=== PATIENT | female | born 1975 | race Hispanic/Latino ===

== ENCOUNTER → 2018-08-20 | Day surgery (SDC) | payer BC, OTHER ==
[~2018-08-20] MED LIST: FENTANYL CITRATE/PF 100MCG/2 ML INJ ONE; LIDOCAINE HCL 2% LOCAL INJ 5 ML SDV VIAL INJ ONE; LISINOPRIL10 MG PO; METHYLDOPA250 MG PO; MIDAZOLAM HCL 2 MG/2 ML VIAL ONE; PRENATAL MULTI1 EACH PO; PROPOFOL IV EMULSION 10 MG/ML 20 ML VIAL ONE; WELLBUTRIN SR150 MG PO
[2018-08-20 13:40] VITALS: BP 132/90
--- NOTE | 2018-08-20 22:17 | Operative Report ---
DATE OF PROCEDURE: SURGEON: Peter Pang MD NAME OF THE PROCEDURE: EGD and colonoscopy. INDICATIONS FOR PROCEDURE: The patient with history of abdominal pain and dyspepsia, left lower quadrant pain, left upper quadrant pain. Rule out peptic ulcer disease, gastritis, esophagitis, upper GI and lower GI neoplasm, inflammatory bowel disease. DESCRIPTION OF PROCEDURE: After informed and written consent, premedications with monitored anesthesia care, standard adult video Olympus gastroscope was introduced into the mouth, esophagus, stomach, into the second portion of the duodenum. The first and second portion of the duodenum did not show any ulceration, but the duodenal bulb showed evidence of duodenitis. Antrum and body showed erosive gastritis with superficial gastric ulcers and biopsies were done. Retroflexion otherwise appeared to be unremarkable. Esophagus was normal. Video colonoscope was introduced into the rectum and all the way into the terminal ileum. The terminal ileum, ileocecal valve, cecum, ascending, transverse, descending colon appeared to be normal. The sigmoid showed occasional diverticulosis. Diminutive polyp was seen in the rectum, removed by cold biopsy forceps. There was a 1-cm polyp seen in the sigmoid colon, removed by hot snare. The retroflexion in the rectum otherwise was normal. The withdrawal time was more than 6 minutes. IMPRESSION: Gastritis, duodenitis, superficial gastric ulcers, diverticulosis, and colon polyp. RECOMMENDATIONS: Avoid aspirin, NSAIDs for 2 weeks, PPI and dicyclomine, and we will see her back in the office in 3 weeks and repeat colonoscopy in 3-5 years depending on the pathology. Further recommendation based on the patient's clinical course. Peter Pang MD SR/MODL /[id number]
--- OUTSIDE RECORDS SUMMARY | 2018-08-21 12:13 | XMS REPORT ---
Author Author Mayra Lei Organization [employer] Address Unknown Phone Unavailable Care Team Providers Care Travel Rn Name Role Phone Mayra Lei CP Unavailable Allergies, Adverse Reactions, Alerts Substance Reaction Event Type N.K.D.A. Info Not Available Non Drug Allergy Problems Problem Type Condition Code Onset Dates Condition Status Assessment Depression F32.9 Active Assessment Dizziness R42 Active Problem Depression F32.9 Active Problem Left knee pain M25.562 Active Problem Hypertension I10 Active Assessment Hypertension I10 Active Assessment Abnormal urinalysis R82.90 Active Problem Rheumatoid arthritis M06.9 Active Medications Medication Code System Code Instructions Start Date End Date Status Dosage Methotrexate [facility] 51586496536 2.5 MG Orally 10 pills a week Jul 03, 2018 Active as directed Folic Acid ND 99954926481 1 MG Orally Once a day Jul 03, 2018 Active 1 tablet Lisinopril ND 82226621189 10 MG Orally Once a day Jul 03, 2018 Active 1 tablet Wellbutrin XL ND 15901510604 150 MG Orally Once a day Jul 03, 2018 Active 1 tablet in the morning Humira ND 84389988133 40 MG/0.8ML Subcutaneous Jul 03, 2018 Active 0.8 ml Vital Signs Date/Time: Aug 03, 2018 BMI 49.01 Index Weight 268 lbs Height 62 in Cardiac Monitoring Heart Rate 74 /min Blood Pressure Diastolic 94 mm Hg Blood Pressure Systolic 146 mm Hg Results No Known Results Summary Purpose [employer] Submission
--- OUTSIDE RECORDS SUMMARY | 2018-08-21 12:13 | XMS REPORT ---
Author Author Kemi Willis Organization [employer] Address Unknown Phone Unavailable Care Team Providers Care Movie Theater Manager Name Role Phone Kemi Willis CP Unavailable Allergies No Known Allergies Problems Problem Type Condition Code Onset Dates Condition Status Problem Depression F32.9 Active Problem Left knee pain M25.562 Active Problem Hypertension I10 Active Problem Rheumatoid arthritis M06.9 Active Medications No Known Medications Vital Signs Date/Time: Jul 10, 2018 Height 62 in Results No Known Results Summary Purpose [employer] Submission
--- OUTSIDE RECORDS SUMMARY | 2018-08-21 12:13 | XMS REPORT | Summary of Care ---
Author Organization Unknown Address Unknown Phone Unavailable Encounter [facility](LIVE) [id number] Date(s): 04/22/14 - 04/22/14 [facility] [address] Discharge Disposition: Home Physician Attending: Vira Martinez MD Physician_Referring: Vira Martinez MD Reason for Visit V23.9 / 009.90 Vital Signs Most recent to 1 oldest [Reference Range]: Height 157.48 cm (04/22/14 1:40 PM) Weight 119.091 kg (04/22/14 1:40 PM) Body Mass Index 48.02 m2 (04/22/14 1:40 PM) Problem List No data available for this section Allergies, Adverse Reactions, Alerts Substance Reaction Severity Status NKDA Active Medications No data available for this section Medications Administered During Your Visit No data available for this section Immunizations No data available for this section
--- OUTSIDE RECORDS SUMMARY | 2018-08-21 12:13 | XMS REPORT | Summary of Care ---
Author Organization Unknown Address Unknown Phone Unavailable Encounter [facility]) [phone] Date(s): 05/26/14 - 05/31/[address] Discharge Disposition: Home Physician Attending: Vira Martinez MD Physician Admitting: Vira Martinez MD Reason for Visit INDUCTION Vital Signs 1 2 3 Most recent to oldest [Reference Range]: 157.48 cm (05/27/14 12:23 AM) Height 97.9 DegF (05/31/14 12:30 AM) 98.2 DegF (05/30/14 4:45 PM) 97.4 DegF (05/30/14 12:24 PM) Temperature Oral [96.4-99.1 DegF] 113 mmHg (05/31/14 12:30 AM) 113 mmHg (05/30/14 4:45 PM) 104 mmHg (05/30/14 12:24 PM) Systolic Blood Pressure [90-140 mmHg] 77 mmHg (05/31/14 12:30 AM) 75 mmHg (05/30/14 4:45 PM) 70 mmHg (05/30/14 12:24 PM) Diastolic Blood Pressure [60-90 mmHg] 18 BRMIN (05/31/14 12:30 AM) 18 BRMIN (05/30/14 4:45 PM) 18 BRMIN (05/30/14 12:24 PM) Respiratory Rate [14-20 BRMIN] 90 bpm (05/31/14 12:30 AM) 83 bpm (05/30/14 4:45 PM) 79 bpm (05/30/14 12:24 PM) Peripheral Pulse Rate [60-100 bpm] 120.909 kg (05/27/14 12:23 AM) Weight 48.75 m2 (05/27/14 12:23 AM) Body Mass Index Problem List Condition Effective Dates Status Health Status Informant Carpal 06/16/01 Resolved tunnel(Confirmed) Hypertension(Confirm 12/14/13 Resolved ed) (Confirmed) 05/26/14 - 05/29/14 Resolved (Confirmed) 09/09/97 - 1998 Resolved (Confirmed) 09/09/93 - 1994 Resolved (Confirmed) 09/09/00 - 2001 Resolved Allergies, Adverse Reactions, Alerts Substance Reaction Severity Status NKDA Active Medications acetaminophen 650 mg, 2 tab, Route: PO, Drug form: TAB, Q4H, Dosing Weight 120.909, kg, PRN He adache 1-3, Start date: 05/29/14 16:12:00, Duration: 30 day, Stop date: 06/28/14 16:11:00 Notes: Do not exceed 4 gm/day. (Same as: Tylenol) Start Date: 05/29/14 Stop Date: 05/30/14 Status: Discontinued acetaminophen-hydrocodone 325 mg-10 mg oral tablet 1 tab, Route: PO, Drug Form: TAB, Dosing Weight 120.909, kg, Q4H, PRN Pain Score 7-10, Start date: 05/29/14 16:12:00, Duration: 30 day, Stop date: 06/28/14 16:1 1:00 Notes: Do not exceed 4gm/day of acetaminophen. (Same as: Rhine 325/10) Start Date: 05/29/14 Stop Date: 05/29/14 Status: Discontinued acetaminophen-hydrocodone 325 mg-5 mg oral tablet 1 tab, Route: PO, Drug Form: TAB, Dosing Weight 120.909, kg, Q4H, PRN Pain Score 4-6, Start date: 05/29/14 16:12:00, Duration: 30 day, Stop date: 06/28/14 16:11 :00 Notes: (Same as: Rhine 325/5) Do not exceed 4gm/day of acetaminophen. Start Date: 05/29/14 Stop Date: 05/29/14 Status: Discontinued bisacodyl 15 mg, 3 tab, Route: PO, Drug form: ECTAB, Daily, Dosing Weight 120.909, kg, PRN Other -See Comment, Start date: 05/29/14 16:12:00, Duration: 30 day, Stop date: 06/28/14 16:11:00 Notes: (Same As: Dulcolax, Correctol) (Do Not Crush) "Do Not Crush" Start Date: 05/29/14 Stop Date: 05/31/14 Status: Discontinued bisacodyl 10 mg, 1 supp, Route: NE, Drug form: SUPP, PRN, Dosing Weight 120.909, kg, PRN O ther -See Comment, Start date: 05/29/14 16:12:00, Duration: 30 day, Stop date: 0 06/28/14 16:11:00 Notes: (Same As: Dulcolax, Bisco-Lax) Start Date: 05/29/14 Stop Date: 05/31/14 Status: Discontinued butorphanol 2 mg, 1 mL, Route: IVP, Drug form: INJ, Q2H, Dosing Weight 120.909, kg, PRN Pain Score 6-10, Start date: 05/27/14 3:45:00, Duration: 30 day, Stop date: 06/26/14 3:44:00 Notes: (Same As: Stadol) Start Date: 05/27/14 Stop Date: 05/31/14 Status: Discontinued butorphanol 1 mg, 1 mL, Route: IVP, Drug form: INJ, Q2H, Dosing Weight 120.909, kg, PRN Pain Score 1-5, Start date: 05/27/14 3:45:00, Duration: 30 day, Stop date: 06/26/14 3:44:00 Notes: (Same As: Stadol) Start Date: 05/27/14 Stop Date: 05/31/14 Status: Discontinued carboprost 250 microgram, 1 mL, Route: IM, Drug form: INJ, ONCALL, Dosing Weight 120.909, k g, Start date: 05/27/14 4:00:00, Duration: 30 day, Stop date: 06/26/14 3:59:00 Notes: (Same As: Hemabate) Start Date: 05/27/14 Stop Date: 05/31/14 Status: Discontinued Cervidil 10 mg, 1 supp, Route: VAG, Drug form: INS, ONCE, Dosing Weight 120.909, kg, Star t date: 05/27/14 20:35:00, Duration: 1 doses or times, Stop date: 05/27/14 20:35 :00 Notes: (Same as: Cervidil) Start Date: 05/27/14 Stop Date: 05/27/14 Status: Completed citric acid-sodium citrate 30 mL, Route: PO, Drug Form: SOLN, Dosing Weight 120.909, kg, ONCALL, Start date : 05/27/14 4:00:00, Duration: 30 day, Stop date: 06/26/14 3:59:00 Notes: (Same As: Bicitrjethro, Cytra-2) Sodium citrate-citric acid (500-334 mg/5 mL): 1 mL contains sodium 1 mEq/mL and bicarbonate 1 mEq/mL Start Date: 05/27/14 Stop Date: 05/31/14 Status: Discontinued Colace 100 mg oral capsule 100 mg=1 cap, PO, BID, # 60 cap, 0 Refill(s) Start Date: 05/31/14 Status: Ordered Cytotec 50 microgram, Route: PO, Drug form: TAB, ONCE, Dosing Weight 120.909, kg, Start date: 05/28/14 9:05:00, Stop date: 05/28/14 9:05:00 Start Date: 05/28/14 Stop Date: 05/28/14 Status: Completed D5LR 1,000 mL 1,000 mL, Rate: 125 ml/hr, Infuse over: 8 hr, Route: IV, Dosing Weight 120.909 k g, Total Volume: 1,000, Start date: 05/28/14 18:27:00, Duration: 30 day, Stop da te: 06/27/14 18:26:00 Start Date: 05/28/14 Stop Date: 05/31/14 Status: Discontinued Dermoplast 20% topical spray 1 spray, Route: TOP, PRN, Drug form: SPRY, PRN Irritation, Start date: 05/29/14 16:12:00, Duration: 30 day, Stop date: 06/28/14 16:11:00 Notes: (Same As: Dermoplast) FOR EXTERNAL USE ONLY Start Date: 05/29/14 Stop Date: 05/31/14 Status: Discontinued Dextrose 50% Syringe 12.5 gm, 25 mL, Route: IVP, Drug Form: INJ, Dosing Weight 120.909, kg, PRN, PRN Abnormal Lab Result, Start date: 05/27/14 4:28:00, Duration: 30 day, Stop date: 06/26/14 4:27:00 Start Date: 05/27/14 Stop Date: 05/31/14 Status: Discontinued Dextrose 50% Syringe 6.25 gm, 12.5 mL, Route: IVP, Drug Form: INJ, Dosing Weight 120.909, kg, PRN, NE N Abnormal Lab Result, Start date: 05/27/14 4:28:00, Duration: 30 day, Stop date : 06/26/14 4:27:00 Start Date: 05/27/14 Stop Date: 05/31/14 Status: Discontinued Dextrose 50% Syringe 25 gm, 50 mL, Route: IVP, Drug Form: INJ, Dosing Weight 120.909, kg, PRN, PRN Ab normal Lab Result, Start date: 05/27/14 4:28:00, Duration: 30 day, Stop date: 4:27:00 Start Date: 05/27/14 Stop Date: 05/31/14 Status: Discontinued docusate 100 mg, 1 cap, Route: PO, Drug form: CAP, BID, Dosing Weight 120.909, kg, PRN Co nstipation, Start date: 05/29/14 16:12:00, Duration: 30 day, Stop date: 06/28/14 16:11:00 Notes: (Same as: Colace) (Do Not Crush) Start Date: 05/29/14 Stop Date: 05/31/14 Status: Discontinued famotidine 20 mg, 2 mL, Route: IVP, Drug form: INJ, ONCALL, Dosing Weight 120.909, kg, Star t date: 05/27/14 4:00:00, Duration: 30 day, Stop date: 06/26/14 3:59:00 Notes: (Same as: Pepcid)Can be dilute in 5-10cc NS IVP: Slow IV push over at le ast 2 minutes. Start Date: 05/27/14 Stop Date: 05/31/14 Status: Discontinued ferrous sulfate 325 mg oral enteric coated tablet 325 mg=1 tab, PO, BID, # 60 tab, 0 Refill(s) Start Date: 05/31/14 Status: Ordered glyBURIDE 0 Refill(s) Start Date: 05/28/14 Stop Date: 05/31/14 Status: Discontinued ibuprofen 600 mg, 1 tab, Route: PO, Drug form: TAB, Q6H, Dosing Weight 120.909, kg, PRN Pa in Score 1-5, Start date: 05/29/14 16:12:00, Duration: 30 day, Stop date: 16:11:00 Notes: (Same as: Carol Ann)"Do Not Crush" Take with food. Start Date: 05/29/14 Stop Date: 05/31/14 Status: Discontinued ibuprofen 800 mg, 1 tab, Route: PO, Drug form: TAB, Q8H, Dosing Weight 120.909, kg, PRN Pa in Score 6-10, Start date: 05/29/14 16:12:00, Duration: 30 day, Stop date: 06/28 16:11:00 Notes: (Same as: Carol Ann)"Do Not Crush" Take with food. Start Date: 05/29/14 Stop Date: 05/31/14 Status: Discontinued ibuprofen 600 mg oral tablet 600 mg=1 tab, PO, Q6H, Pain or Fever, Take with food, # 40 tab, 0 Refill(s) Special Instructions: Take with food Start Date: 05/31/14 Stop Date: 06/10/14 Status: Ordered insulin regular 100 units/mL human recombinant 3 unit, 0.03 mL, Route: SUB-Q, Drug form: SOLN, PRN, Dosing Weight 120.909, kg, PRN Abnormal Lab Result, Start date: 05/27/14 4:28:00, Duration: 30 day, Stop da te: 06/26/14 4:27:00 Notes: (Same as: Humulin R) Roll in palms of hands gently; Do not shake vigorou sly. "single patient use only"(Restricted to patients requiring a dose > 60 units) Stable for 28 days at room temperatureExpires in days from _ Date Start Date: 05/27/14 Stop Date: 05/31/14 Status: Discontinued insulin regular 100 units/mL human recombinant 5 unit, 0.05 mL, Route: SUB-Q, Drug form: SOLN, PRN, Dosing Weight 120.909, kg, PRN Abnormal Lab Result, Start date: 05/27/14 4:28:00, Duration: 30 day, Stop da te: 06/26/14 4:27:00 Notes: (Same as: Humulin R) Roll in palms of hands gently; Do not shake vigorou sly. "single patient use only"(Restricted to patients requiring a dose > 60 units) Stable for 28 days at room temperatureExpires in days from _ Date Start Date: 05/27/14 Stop Date: 05/31/14 Status: Discontinued insulin regular 100 units/mL human recombinant 7 unit, 0.07 mL, Route: SUB-Q, Drug form: SOLN, PRN, Dosing Weight 120.909, kg, PRN Abnormal Lab Result, Start date: 05/27/14 4:28:00, Duration: 30 day, Stop da te: 06/26/14 4:27:00 Notes: (Same as: Humulin R) Roll in palms of hands gently; Do not shake vigorou sly. "single patient use only"(Restricted to patients requiring a dose > 60 units) Stable for 28 days at room temperatureExpires in days from _ Date Start Date: 05/27/14 Stop Date: 05/31/14 Status: Discontinued ketorolac 30 mg, 1 mL, Route: IVP, Drug form: INJ, Q6H, Dosing Weight 120.909, kg, PRN Vanessa n Score 4-6, Start date: 05/29/14 21:26:00, Duration: 24 hr, Stop date: 05/30/14 21:25:00 Notes: (Same as:Toradol) IV bolus must be given >15 seconds. Give IM administration slowly and deeply into the muscle. Not for use > 4 days Start Date: 05/29/14 Stop Date: 05/30/14 Status: Completed Lactated Ringers (Bolus) IV 1,000 mL, 1,000 ml/hr, Infuse Over: 1 hr, Route: IV, 1,000, Drug form: INJ, ONCE , Dosing Weight 120.909 kg, Start date: 05/27/14 3:45:00, Stop date: 05/27/14 3: 45:00, Bolus for regional anesthesia per unit protocol Start Date: 05/27/14 Stop Date: 05/31/14 Status: Discontinued Lactated Ringers IV 1,000 mL 1,000 mL, Rate: 100 ml/hr, Infuse over: 10 hr, Route: IV, Dosing Weight 120.909 kg, Total Volume: 1,000, Start date: 05/29/14 16:12:00, Duration: 30 day, Stop d ate: 06/28/14 16:11:00 Start Date: 05/29/14 Stop Date: 05/31/14 Status: Discontinued Lactated Ringers IV 1,000 mL 1,000 mL, Rate: 125 ml/hr, Infuse over: 8 hr, Route: IV, Dosing Weight 120.909 k g, Total Volume: 1,000, Start date: 05/27/14 3:45:00, Duration: 30 day, Stop chelo e: 06/26/14 3:44:00 Start Date: 05/27/14 Stop Date: 05/31/14 Status: Discontinued lanolin topical 1 appl, Route: TOP, PRN, Drug form: OINT, PRN Other -See Comment, Start date: 16:12:00, Duration: 30 day, Stop date: 06/28/14 16:11:00 Notes: (Same as:Lanolin) Start Date: 05/29/14 Stop Date: 05/31/14 Status: Discontinued lidocaine 1% 20 mL, Route: PERCUT, Drug Form: INJ, Dosing Weight 120.909, kg, PRN, PRN Other -See Comment, Start date: 05/27/14 3:45:00, Duration: 1 doses or times, Stop chelo e: Limited # of times Notes: (Same as: Xylocaine) Start Date: 05/27/14 Stop Date: 05/31/14 Status: Discontinued lidocaine 1% injectable solution 0.25 mL, Route: INTRADERM, Drug Form: INJ, Dosing Weight 120.909, kg, PRN, PRN O ther -See Comment, Start date: 05/27/14 3:45:00, Duration: 30 day, Stop date: 3:44:00 Notes: Preservative free. (Same as: Xylocaine MPF) Start Date: 05/27/14 Stop Date: 05/31/14 Status: Discontinued M-M-R II 0.5 mL, Route: SUB-Q, Drug Form: PDR/INJ, Dosing Weight 120.909, kg, ONCALL, Giv e only if patient rubella non-immune, Start date: 05/29/14 17:00:00, Duration: 1 doses or times Notes: (Same as: M-M-R II) (qeanatm-nupvk-enlngml virus vaccine 0.5 ml INJ VL) GIVE PRIOR TO DISCHARGE Start Date: 05/29/14 Stop Date: 05/31/14 Status: Discontinued methyldopa 0 Refill(s) Start Date: 05/28/14 Stop Date: 05/31/14 Status: Discontinued methylergonovine 0.2 mg, 1 mL, Route: IM, Drug form: INJ, PRN, Dosing Weight 120.909, kg, PRN Oth er -See Comment, Start date: 05/29/14 16:12:00, Duration: 30 day, Stop date: 16:11:00 Notes: (Same as:Methergine) Start Date: 05/29/14 Stop Date: 05/31/14 Status: Discontinued methylergonovine 0.2 mg, 1 mL, Route: IM, Drug form: INJ, ONCALL, Dosing Weight 120.909, kg, Star t date: 05/27/14 4:00:00, Duration: 30 day, Stop date: 06/26/14 3:59:00 Notes: (Same as:Methergine) Start Date: 05/27/14 Stop Date: 05/31/14 Status: Discontinued misoprostol 50 microgram, 2 ea, Route: PO, Drug form: TAB, Q4H, Dosing Weight 120.909, kg, S tart date: 05/28/14 16:00:00, Duration: 30 day, Stop date: 06/27/14 12:00:00 Notes: (Same as:Cytotec) Take with food 25 microgram=1/4 tab of 100 microgram. Start Date: 05/28/14 Stop Date: 05/31/14 Status: Discontinued misoprostol 25 microgram, 1 ea, Route: VAG, Drug form: TAB, Q3H, Dosing Weight 120.909, kg, Start date: 05/27/14 5:00:00, Duration: 30 day, Stop date: 06/26/14 2:00:00 Notes: (Same as:Cytotec) Take with food 25 microgram=1/4 tab of 100 microgram. Start Date: 05/27/14 Stop Date: 05/28/14 Status: Discontinued misoprostol 1,000 microgram, 5 tab, Route: NE, Drug form: TAB, ONCALL, Dosing Weight 120.909 , kg, Start date: 05/27/14 4:00:00, Duration: 1 doses or times Notes: (Same as:Cytotec) Take with food Start Date: 05/27/14 Stop Date: 05/31/14 Status: Discontinued naloxone 0.4 mg, 1 mL, Route: IVP, Drug form: INJ, ONCALL, Dosing Weight 120.909, kg, Sta rt date: 05/29/14 22:00:00, Duration: 24 hr, Stop date: 05/30/14 21:59:00 Notes: Same as Narcan Start Date: 05/29/14 Stop Date: 05/31/14 Status: Discontinued NS 500ml + Pitocin 30 units (Titrate) IV 30 unit 30 unit, 500 mL, Rate: 42 ml/hr, Infuse over: 11.9 hr, Dosing Weight 120.909, kg , Route: IV, Total Volume: 500 mL, Start date: 05/29/14 16:12:00, Duration: 2 do ses or times, Stop date: 05/30/14 15:59:00, Replace Every: 11.9 hr Notes: (Same as: OXYTOCIN-D5LR) Start Date: 05/29/14 Stop Date: 05/30/14 Status: Completed NS 500ml + Pitocin 30 units (Titrate) IV 30 unit 30 unit, 500 mL, Rate: 42 ml/hr, Infuse over: 11.9 hr, Dosing Weight 120.909, kg , Route: IV, Total Volume: 500 mL, Start date: 05/27/14 3:45:00, Duration: 2 day , Stop date: 05/29/14 3:44:00, Replace Every: 11.9 hr Notes: (Same as: OXYTOCIN-D5LR) Start Date: 05/27/14 Stop Date: 05/29/14 Status: Completed NS 500ml + Pitocin 30 units (Titrate) IV 30 unit 30 unit, 500 mL, Rate: Titrate, Dosing Weight 120.909, kg, Route: IV, Total Volu me: 500 mL, Start date: 05/28/14 19:14:00, Duration: 2 day, Stop date: 05/30/14 19:13:00, Replace Every: 24 hr Notes: (Same as: OXYTOCIN-D5LR) Start Date: 05/28/14 Stop Date: 05/30/14 Status: Completed ondansetron 4 mg, 2 mL, Route: IVP, Drug form: INJ, Q8H, Dosing Weight 120.909, kg, PRN Naus ea & Vomiting, Start date: 05/29/14 16:12:00, Duration: 30 day, Stop date: 06/28/14 16:11:00 Notes: (Same as: Zofran) Start Date: 05/29/14 Stop Date: 05/31/14 Status: Discontinued ondansetron 4 mg, 2 mL, Route: IVP, Drug form: INJ, Q8H, Dosing Weight 120.909, kg, PRN Naus ea & Vomiting, Start date: 05/27/14 3:45:00, Duration: 30 day, Stop date: 06/26/14 3:44:00 Notes: (Same as: Zofran) Start Date: 05/27/14 Stop Date: 05/31/14 Status: Discontinued ondansetron 4 mg, 2 mL, Route: IVP, Drug form: INJ, Q6H, Dosing Weight 120.909, kg, PRN Naus ea & Vomiting, Start date: 05/29/14 21:26:00, Duration: 24 hr, Stop date: 05/30/14 21:25:00 Notes: (Same as: Zofran) Start Date: 05/29/14 Stop Date: 05/30/14 Status: Completed oxytocin 30 units in D5LR 500mL (Titrate) IV 30 unit 30 unit, 500 mL, Rate: Titrate, Dosing Weight 120.909, kg, Route: IV, Total Volu me: 500 mL, Start date: 05/27/14 8:00:00, Duration: 2 day, Stop date: 05/29/14 7 :59:00, Replace Every: 24 hr Notes: (Same as: OXYTOCIN-D5LR) Start Date: 05/27/14 Stop Date: 05/28/14 Status: Discontinued 1 oral capsule 0 Refill(s) Start Date: 05/28/14 Stop Date: 05/31/14 Status: Discontinued Multivitamins oral tablet 1 tab, Route: PO, Drug Form: TAB, Dosing Weight 120.909, kg, Daily, Start date: 05/30/14 9:00:00, Duration: 30 day, Stop date: 06/28/14 9:00:00 Start Date: 05/30/14 Stop Date: 05/31/14 Status: Discontinued Remove - dinoprostone (Cervidil) insert 1 supp, Route: VAG, Drug Form: INS, Dosing Weight 120.909, kg, ONCALL, Start chelo e: 05/28/14 9:00:00, Duration: 30 day, Stop date: 06/27/14 8:59:00 Notes: Vaginal insert: to be removed 1 hour prior to oxytocin administration or 12 hours after insertion. Start Date: 05/28/14 Stop Date: 05/28/14 Status: Completed terbutaline 0.25 mg, 0.25 mL, Route: SUB-Q, Drug form: INJ, PRN, Dosing Weight 120.909, kg, PRN Other -See Comment, Start date: 05/27/14 3:45:00, Duration: 1 doses or times , Stop date: Limited # of times Notes: DO NOT USE IN GROCERY SPECIALIST AREA(Same As: Brethine) Start Date: 05/27/14 Stop Date: 05/31/14 Status: Discontinued tramadol 50 mg oral tablet 100 mg, 2 tab, Route: PO, Drug form: TAB, Q6H, Dosing Weight 120.909, kg, PRN Pa in Score 4-6, Start date: 05/29/14 21:10:00, Duration: 30 day, Stop date: 21:09:00 Notes: Not to exceed 400mg/day. (Same As: Ultram) Start Date: 05/29/14 Stop Date: 05/31/14 Status: Discontinued Tylenol 650 mg, 2 tab, Route: PO, Drug form: TAB, Q6H, Dosing Weight 120.909, kg, PRN Pa in Score 1-3, Start date: 05/27/14 4:38:00, Duration: 30 day, Stop date: 5 4:37:00 Notes: Do not exceed 4 gm/day. (Same as: Tylenol) Start Date: 05/27/14 Stop Date: 05/30/14 Status: Discontinued Tylenol with Codeine #3 oral tablet 2 tab, Route: PO, Drug Form: TAB, Dosing Weight 120.909, kg, Q4H, PRN Pain Score 4-6, NOW, Start date: 05/30/14 9:22:00, Duration: 30 day, Stop date: 06/29/14 9 :21:00, > 30 kg; Pediatric Dosing; pain score 4-6 Special Instructions: > 30 kg; Pediatric Dosing; pain score 4-6 Notes: Do not exceed 4gm/day of acetaminophen. (Same as: Tylenol with Codeine # 3) Start Date: 05/30/14 Stop Date: 05/31/14 Status: Discontinued Tylenol with Codeine #3 oral tablet 1 tab, PO, Q6H, for pain, # 30 tab, 0 Refill(s) Start Date: 05/31/14 Status: Ordered zolpidem 5 mg, 1 tab, Route: PO, Drug form: TAB, Bedtime, Dosing Weight 120.909, kg, PRN Sleep, Start date: 05/29/14 16:12:00, Duration: 30 day, Stop date: 06/28/14 16:1 1:00 Notes: (Same As: Ambien) Start Date: 05/29/14 Stop Date: 05/31/14 Status: Discontinued Results BLOOD BANK RESULTS Most recent to 1 2 oldest [Reference Range]: ABO/Rh O POS *Unknown* (05/27/14 12:15 AM) Antibody Scrn Negative (05/27/14 12:15 AM) IMMUNOLOGY Most recent to 1 2 oldest [Reference Range]: Treponemal Scr [Non Non Reactive Reactive] *NA* (05/27/14 4:48 AM) Hep Bs Ag [Negative] Negative *NA* (05/27/14 4:48 AM) HEMATOLOGY Most recent to 1 2 oldest [Reference Range]: WBC [3.7-10.4 K/CMM] 8.0 K/CMM (05/27/14 4:48 AM) RBC [4.20-5.40 3.89 M/CMM M/CMM] *LOW* (05/27/14 4:48 AM) Hgb [12.0-16.0 g/dL] 9.4 g/dL 11.7 g/dL *LOW* *LOW* (05/30/14 5:55 AM) (05/27/14 4:48 AM) Hct [36.0-48.0 %] 26.9 % 34.9 % *LOW* *LOW* (05/30/14 5:55 AM) (05/27/14 4:48 AM) MCV [80.0-98.0 fL] 89.7 fL (05/27/14 4:48 AM) MCH [27.0-31.0 pg] 30.0 pg (05/27/14 4:48 AM) MCHC [32.0-36.0 33.4 g/dL g/dL] (05/27/14 4:48 AM) RDW [11.5-14.5 %] 14.7 % *HI* (05/27/14 4:48 AM) Platelet [133-450 254 K/CMM K/CMM] (05/27/14 4:48 AM) MPV [7.4-10.4 fL] 8.7 fL (05/27/14 4:48 AM) Segs [45.0-75.0 %] 59.0 % (05/27/14 4:48 AM) Lymphocytes 33.2 % [20.0-40.0 %] (05/27/14 4:48 AM) Monocytes [2.0-12.0 6.2 % %] (05/27/14 4:48 AM) Eosinophils [0.0-4.0 1.1 % %] (05/27/14 4:48 AM) Basophils [0.0-1.0 0.5 % %] (05/27/14 4:48 AM) Segs-Bands # 4.7 K/CMM [1.5-8.1 K/CMM] (05/27/14 4:48 AM) Lymphocytes # 2.6 K/CMM [1.0-5.5 K/CMM] (05/27/14 4:48 AM) Monocytes # [0.0-0.8 0.5 K/CMM K/CMM] (05/27/14 4:48 AM) Eosinophils # 0.1 K/CMM [0.0-0.5 K/CMM] (05/27/14 4:48 AM) Medications Administered During Your Visit No data available for this section Immunizations No data available for this section Social History Social History Type Response Smoking Status Never smoker, Exposure to Tobacco Smoke None, Cigarette Smoking Last 365 Days Yes, Reg Smoking Cessation Counseling No Assessment and Plan Extracted from: Title: OB Progress Note Author: Cherelle Jamil PA-C Date: 05/31/14 Impression and Plan A/P: 39yo s/p TSVD and post BTL 1. PPD# 2, POD #2 - AFVSS, Pain controlled. 2. Heme: 11.7 --> 500cc --> 9.4. No s/sx of anemia. Will d/c home on iron and colace 3. CHTN - Stable off meds. BPs in the nl range 4. Br /BCM - PP BTL 5. A2GDM - Good control off glyburide. Will follow up post . 6. Rh+ / RI 7. Dispo: D/C home today. Will follow up with Dr Martinez in 2 weeks. Cherelle Jamil PA-C Extracted from: Title: OB H&P Author: Aleisha Gupta DO Date: 05/26/14 Impression and Plan 39yo at 37w5d by LMP c/w doc 13wk US presents for IOL 2/2 A2GDM and cHTN. 1. FHTs Category I 2. IOL - Cervix unfavorable, Cytotec 25mcg PV placed now. 3. GBS neg & 3T HIV neg 4. cHTN - nml range BPs here. Continue methyldopa 250mg TID. Reports mild headache, will give tylenol now. Continue to monitor closely. 5. A2GDM - Written for SSI now and q2hr accuchecks, first accucheck of 158. Will start insulin drip if necessary in active labor. 6. Pain - wants epidural 7. Cephalic, 4000g 8. MPDPS - private insurance Aleisha Gupta, DO PGY1
--- OUTSIDE RECORDS SUMMARY | 2018-08-21 12:13 | XMS REPORT ---
Author Author Mayra Lei Organization [employer] Address Unknown Phone Unavailable Care Team Providers Care Waste/Materials Exchange Specialist Name Role Phone Mayra Lei CP Unavailable Allergies No Known Allergies Problems Problem Type Condition Code Onset Dates Condition Status Assessment BMI 45.0-49.9, adult Z68.42 Active Problem Rheumatoid arthritis M06.9 Active Problem Hypertension I10 Active Problem BMI 45.0-49.9, adult Z68.42 Active Assessment Hypertension I10 Active Problem Depression F32.9 Active Problem Left knee pain M25.562 Active Medications Medication Code System Code Instructions Start Date End Date Status Dosage Lisinopril [facility] [id number] 10 mg Orally Once a day Jul 03, 2018 Active 1 tablet Results No Known Results Summary Purpose [employer] Submission
--- OUTSIDE RECORDS SUMMARY | 2018-08-21 12:13 | XMS REPORT | Summary of Care ---
Author Organization Unknown Address Unknown Phone Unavailable Encounter [facility](LIVE) [id number] Date(s): 06/20/14 - 06/21/[address] Discharge Disposition: Home Physician Attending: Vira Martinez MD Physician Admitting: Vira Martinez MD Reason for Visit DNC Vital Signs 1 2 3 Most recent to oldest [Reference Range]: 157.48 cm (06/20/14 6:05 PM) Height 98.1 DegF (06/21/14 6:17 AM) 97.1 DegF (06/20/14 11:37 PM) 98.4 DegF (06/20/14 8:08 PM) Temperature Oral [96.4-99.1 DegF] 102 mmHg (06/21/14 6:17 AM) 117 mmHg (06/21/14 12:38 AM) 144 mmHg *HI* (06/20/14 11:54 PM) Systolic Blood Pressure [90-140 mmHg] 69 mmHg (06/21/14 6:17 AM) 75 mmHg (06/21/14 12:38 AM) 90 mmHg (06/20/14 11:54 PM) Diastolic Blood Pressure [60-90 mmHg] 20 BRMIN (06/21/14 6:17 AM) 20 BRMIN (06/21/14 12:38 AM) 19 BRMIN (06/20/14 11:54 PM) Respiratory Rate [14-20 BRMIN] 80 bpm (06/21/14 6:17 AM) 72 bpm (06/21/14 12:38 AM) 84 bpm (06/20/14 11:54 PM) Peripheral Pulse Rate [60-100 bpm] 110 kg (06/20/14 6:05 PM) Weight 44.35 m2 (06/20/14 6:05 PM) Body Mass Index Problem List Condition Effective [...] PO, Drug form: TAB, Q4H, Dosing Weight 110, kg, PRN Headac he 1-3, Start date: 06/20/14 18:53:00, Duration: 30 day, Stop date: 07/20/14 18: 52:00 Notes: Do not exceed 4 gm/day. (Same as: Tylenol) Start Date: 06/20/14 Stop Date: 06/21/14 Status: Discontinued acetaminophen-hydrocodone 325 mg-10 mg oral tablet 1 tab, Route: PO, Drug Form: TAB, Dosing Weight 110, kg, Q4H, PRN Pain Score 7-1 0, Start date: 06/20/14 18:53:00, Duration: 30 day, Stop date: 07/20/14 18:52:00 Notes: Do not exceed 4gm/day of acetaminophen. (Same as: [place] 325/10) Start Date: 06/20/14 Stop Date: 06/21/14 Status: Discontinued acetaminophen-hydrocodone 325 mg-5 mg oral tablet 1 tab, Route: PO, Drug Form: TAB, Dosing Weight 110, kg, Q4H, PRN Pain Score 4-6 , Start date: 06/20/14 18:53:00, Duration: 30 day, Stop date: 07/20/14 18:52:00 Notes: (Same as: [place] 325/5) Do not exceed 4gm/day of acetaminophen. Start Date: 06/20/14 Stop Date: 06/21/14 Status: Discontinued benzocaine-menthol topical 1 lozenge, Route: MUCOUS MEM, Drug Form: [place], Q4H, PRN Sore Throat, Start date: 06/21/14 0:06:00, Duration: 30 day, Stop date: 07/21/14 0:05:00 Notes: Cepacol lozengesDispense 1 box=16 lozenges (Same As: Cepacol Lozenges) Start Date: 06/21/14 Stop Date: 06/21/14 Status: Discontinued bisacodyl 10 mg, 1 supp, Route: SD, Drug form: SUPP, PRN, Dosing Weight 110, kg, PRN Other -See Comment, Start date: 06/20/14 18:53:00, Duration: 30 day, Stop date: 07/20 18:52:00 Notes: (Same As: Dulcolax, Bisco-Lax) Start Date: 06/20/14 Stop Date: 06/21/14 Status: Discontinued bisacodyl 15 mg, 3 tab, Route: PO, Drug form: ECTAB, Daily, Dosing Weight 110, kg, PRN Oth er -See Comment, Start date: 06/20/14 18:53:00, Duration: 30 day, Stop date: 09/28 18:52:00 Notes: (Same As: Dulcolax, Correctol) (Do Not Crush) "Do Not Crush" Start Date: 06/20/14 Stop Date: 06/21/14 Status: Discontinued butorphanol 1 mg, 1 mL, Route: IVP, Drug form: INJ, Q2H, Dosing Weight 110, kg, PRN Pain Sco re 1-5, Start date: 06/20/14 18:52:00, Duration: 30 day, Stop date: 07/20/14 18: 51:00 Notes: (Same As: Stadol) Start Date: 06/20/14 Stop Date: 06/21/14 Status: Discontinued butorphanol 2 mg, 1 mL, Route: IVP, Drug form: INJ, Q2H, Dosing Weight 110, kg, PRN Pain Sco re 6-10, Start date: 06/20/14 18:52:00, Duration: 30 day, Stop date: 07/20/14 18 :51:00 Notes: (Same As: Stadol) Start Date: 06/20/14 Stop Date: 06/21/14 Status: Discontinued carboprost 250 microgram, 1 mL, Route: IM, Drug form: INJ, ONCALL, Dosing Weight 110, kg, S tart date: 06/20/14 19:00:00, Duration: 30 day, Stop date: 07/20/14 18:59:00 Notes: (Same As: Hemabate) Start Date: 06/20/14 Stop Date: 06/21/14 Status: Discontinued Cepacol Lozenge 1 lozenge, Route: MUCOUS MEM, Q4H, Drug form: [place], PRN Sore Throat, Start date: 06/21/14 0:01:00, Duration: 30 day, Stop date: 07/21/14 0:00:00 Start Date: 06/21/14 Stop Date: 06/21/14 Status: Deleted citric acid-sodium citrate 30 mL, Route: PO, Drug Form: SOLN, Dosing Weight 110, kg, ONCALL, Start date: 19:00:00, Duration: 30 day, Stop date: 07/20/14 18:59:00 Notes: (Same As: Bicitra, Cytra-2) Sodium citrate-citric acid (500-334 mg/5 mL): 1 mL contains sodium 1 mEq/mL and bicarbonate 1 mEq/mL Start Date: 06/20/14 Stop Date: 06/21/14 Status: Discontinued Colace 100 mg oral capsule 100 mg=1 cap, PO, BID, Constipation, # 20 cap, 0 Refill(s) Start Date: 06/21/14 Status: Suspended Dermoplast 20% topical spray 1 spray, Route: TOP, PRN, Drug form: SPRY, PRN Irritation, Start date: 06/20/14 18:53:00, Duration: 30 day, Stop date: 07/20/14 18:52:00 Notes: (Same As: Dermoplast) FOR EXTERNAL USE ONLY Start Date: 06/20/14 Stop Date: 06/21/14 Status: Discontinued docusate 100 mg, 1 cap, Route: PO, Drug form: CAP, BID, Dosing Weight 110, kg, PRN Consti pation, Start date: 06/20/14 18:53:00, Duration: 30 day, Stop date: 07/20/14 18: 52:00 Notes: (Same as: Colace) (Do Not Crush) Start Date: 06/20/14 Stop Date: 06/21/14 Status: Discontinued doxycycline 100 mg, 1 tab, Route: PO, Drug form: TAB, ONCE, Dosing Weight 110, kg, Start chelo e: 06/21/14 4:00:00, Stop date: 06/21/14 4:00:00 Notes: NO MILK/ANTACIDS/IRON Take 1 hour before or 2 hours after dairy products Start Date: 06/21/14 Stop Date: 06/21/14 Status: Completed doxycycline + Sodium Chloride 0.9% IV 100 mL 100 mg, Route: IV, Drug form: PDR/INJ, ONCE, Dosing Weight 110, kg, Priority: ST AT, Start date: 06/20/14 21:19:00, Stop date: 06/20/14 21:19:00 Notes: (Same as: Vibramycin) Start Date: 06/20/14 Stop Date: 06/20/14 Status: Completed famotidine 20 mg, 2 mL, Route: IVP, Drug form: INJ, ONCALL, Dosing Weight 110, kg, Start da te: 06/20/14 19:00:00, Duration: 30 day, Stop date: 07/20/14 18:59:00 Notes: (Same as: Pepcid)Can be dilute in 5-10cc NS IVP: Slow IV push over at le ast 2 minutes. Start Date: 06/20/14 Stop Date: 06/21/14 Status: Discontinued ferrous sulfate 325 mg, 1 tab, Route: PO, Drug form: ECTAB, BID, Dosing Weight 110, kg, Start da te: 06/21/14 17:00:00, Duration: 30 day, Stop date: 07/21/14 9:00:00 Notes: Give with food. "Do Not Crush" Start Date: 06/21/14 Stop Date: 06/21/14 Status: Canceled ibuprofen 800 mg, 1 tab, Route: PO, Drug form: TAB, Q8H, Dosing Weight 110, kg, PRN Pain S core 6-10, Start date: 06/20/14 18:53:00, Duration: 30 day, Stop date: 07/20/14 18:52:00 Notes: (Same as: Motrin)"Do Not Crush" Take with food. Start Date: 06/20/14 Stop Date: 06/21/14 Status: Discontinued ibuprofen 600 mg, 1 tab, Route: PO, Drug form: TAB, Q6H, Dosing Weight 110, kg, PRN Pain S core 1-5, Start date: 06/20/14 18:53:00, Duration: 30 day, Stop date: 07/20/14 1 8:52:00 Notes: (Same as: Motrin)"Do Not Crush" Take with food. Start Date: 06/20/14 Stop Date: 06/21/14 Status: Discontinued Lactated Ringers (Bolus) IV 1,000 mL, 1,000 ml/hr, Infuse Over: 1 hr, Route: IV, 1,000, Drug form: INJ, ONCE , Dosing Weight 110 kg, Start date: 06/20/14 18:52:00, Stop date: 06/20/14 18:52 :00, Bolus for regional anesthesia per unit protocol Start Date: 06/20/14 Stop Date: 06/20/14 Status: Completed Lactated Ringers IV 1,000 mL 1,000 mL, Rate: 100 ml/hr, Infuse over: 10 hr, Route: IV, Dosing Weight 110 kg, Total Volume: 1,000, Start date: 06/20/14 18:53:00, Duration: 30 day, Stop date: 07/20/14 18:52:00 Start Date: 06/20/14 Stop Date: 06/21/14 Status: Discontinued Lactated Ringers IV 1,000 mL 1,000 mL, Rate: 125 ml/hr, Infuse over: 8 hr, Route: IV, Dosing Weight 110 kg, T otal Volume: 1,000, Start date: 06/20/14 18:52:00, Duration: 30 day, Stop date: 07/20/14 18:51:00 Start Date: 06/20/14 Stop Date: 06/20/14 Status: Discontinued lanolin topical 1 appl, Route: TOP, PRN, Drug form: OINT, PRN Other -See Comment, Start date: 18:53:00, Duration: 30 day, Stop date: 07/20/14 18:52:00 Start Date: 06/20/14 Stop Date: 06/21/14 Status: Discontinued lidocaine 1% 20 mL, Route: PERCUT, Drug Form: INJ, Dosing Weight 110, kg, PRN, PRN Other -See Comment, Start date: 06/20/14 18:52:00, Duration: 1 doses or times, Stop date: Limited # of times Notes: (Same as: Xylocaine) Start Date: 06/20/14 Stop Date: 06/21/14 Status: Discontinued lidocaine 1% injectable solution 0.25 mL, Route: INTRADERM, Drug Form: INJ, Dosing Weight 110, kg, PRN, PRN Other -See Comment, Start date: 06/20/14 18:52:00, Duration: 30 day, Stop date: 07/20 18:51:00 Notes: Preservative free. (Same as: Xylocaine MPF) Start Date: 06/20/14 Stop Date: 06/21/14 Status: Discontinued Lomotil oral tablet 2 tab, Route: PO, Drug Form: TAB, Dosing Weight 110, kg, QID, PRN Loose Stools, Start date: 06/20/14 22:47:00, Duration: 30 day, Stop date: 07/20/14 22:46:00 Notes: (Same As: Lomotil) MAX Adult dose=8 tabs/day Start Date: 06/20/14 Stop Date: 06/20/14 Status: Discontinued Lomotil oral tablet 2 tab, Route: PO, Drug Form: TAB, Dosing Weight 110, kg, QID, PRN Loose Stools, Start date: 06/21/14 9:06:00, Duration: 30 day, Stop date: 07/21/14 9:05:00 Notes: (Same As: Lomotil) MAX Adult dose=8 tabs/day Start Date: 06/21/14 Stop Date: 06/21/14 Status: Discontinued M-M-R II 0.5 mL, Route: SUB-Q, Drug Form: PDR/INJ, Dosing Weight 110, kg, ONCALL, Give on ly if patient rubella non-immune, Start date: 06/20/14 19:00:00, Duration: 1 dos es or times Notes: (Same as: M-M-R II) (mwmjrkz-cuebr-aeylhvq virus vaccine 0.5 ml INJ VL) GIVE PRIOR TO DISCHARGE Start Date: 06/20/14 Stop Date: 06/21/14 Status: Discontinued methyldopa 250 mg oral tablet 250 mg, 1 tab, Route: PO, Drug form: TAB, TID, Dosing Weight 110, kg, Start date : 06/21/14 9:00:00, Duration: 30 day, Stop date: 07/20/14 17:00:00 Notes: May interfere w/enteral feedings. (Same as:Aldomet) Start Date: 06/21/14 Stop Date: 06/21/14 Status: Discontinued methylergonovine 0.2 mg, 1 mL, Route: IM, Drug form: INJ, PRN, Dosing Weight 110, kg, PRN Other - See Comment, Start date: 06/20/14 18:53:00, Duration: 30 day, Stop date: 18:52:00 Notes: (Same as:Methergine) Start Date: 06/20/14 Stop Date: 06/21/14 Status: Discontinued methylergonovine 0.2 mg, 1 mL, Route: IM, Drug form: INJ, ONCALL, Dosing Weight 110, kg, Start da te: 06/20/14 19:00:00, Duration: 30 day, Stop date: 07/20/14 18:59:00 Notes: (Same as:Methergine) Start Date: 06/20/14 Stop Date: 06/21/14 Status: Discontinued misoprostol 1,000 microgram, 5 tab, Route: SD, Drug form: TAB, ONCALL, Dosing Weight 110, kg , Start date: 06/20/14 19:00:00, Duration: 1 doses or times Notes: (Same as:Cytotec) Take with food Start Date: 06/20/14 Stop Date: 06/20/14 Status: Completed ondansetron 4 mg, 2 mL, Route: IVP, Drug form: INJ, Q8H, Dosing Weight 110, kg, PRN Nausea & Vomiting, Start date: 06/20/14 18:53:00, Duration: 30 day, Stop date: 07/20/14 18:52:00 Notes: (Same as: Zofran) Start Date: 06/20/14 Stop Date: 06/21/14 Status: Discontinued ondansetron 4 mg, 2 mL, Route: IVP, Drug form: INJ, Q8H, Dosing Weight 110, kg, PRN Nausea & Vomiting, Start date: 06/20/14 18:52:00, Duration: 30 day, Stop date: 07/20/14 18:51:00 Notes: (Same as: Zofran) Start Date: 06/20/14 Stop Date: 06/21/14 Status: Discontinued oxytocin 30 units in D5LR 500mL (Titrate) IV 30 unit 30 unit, 500 mL, Rate: 42 ml/hr, Infuse over: 11.9 hr, Dosing Weight 110, kg, [place]: IV, Total Volume: 500 mL, Start date: 06/20/14 18:53:00, Duration: 2 doses or times, Stop date: 06/21/14 18:40:00, Replace Every: 11.9 hr Notes: (Same as: OXYTOCIN-D5LR) Start Date: 06/20/14 Stop Date: 06/21/14 Status: Discontinued oxytocin 30 units in D5LR 500mL (Titrate) IV 30 unit 30 unit, 500 mL, Rate: 42 ml/hr, Infuse over: 11.9 hr, Dosing Weight 110, kg, [place]: IV, Total Volume: 500 mL, Start date: 06/20/14 18:52:00, Duration: 2 day, S top date: 06/22/14 18:51:00, Replace Every: 11.9 hr Notes: (Same as: OXYTOCIN-D5LR) Start Date: 06/20/14 Stop Date: 06/20/14 Status: Discontinued Multivitamins oral tablet 1 tab, Route: PO, Drug Form: TAB, Dosing Weight 110, kg, Daily, Start date: 11/28 9:00:00, Duration: 30 day, Stop date: 07/20/14 9:00:00 Start Date: 06/21/14 Stop Date: 06/21/14 Status: Discontinued terbutaline 0.25 mg, 0.25 mL, Route: SUB-Q, Drug form: INJ, PRN, Dosing Weight 110, kg, PRN Other -See Comment, Start date: 06/20/14 18:52:00, Duration: 1 doses or times, S top date: Limited # of times Notes: DO NOT USE IN [employer](Same As: Bre[place]ine) Start Date: 06/20/14 Stop Date: 06/21/14 Status: Discontinued Tylenol with Codeine #3 oral tablet 1 tab, PO, Q4H, for pain, # 30 tab, 0 Refill(s) Start Date: 06/21/14 Status: Suspended zolpidem 5 mg, 1 tab, Route: PO, Drug form: TAB, Bedtime, Dosing Weight 110, kg, PRN Slee p, Start date: 06/20/14 18:53:00, Duration: 30 day, Stop date: 07/20/14 18:52:00 Notes: (Same As: Tammi) Start Date: 06/20/14 Stop Date: 06/21/14 Status: Discontinued Results BLOOD BANK RESULTS Most recent to 1 2 oldest [Reference Range]: ABO/Rh O POS *Unknown* (06/20/14 7:23 PM) Antibody Scrn Negative (06/20/14 7:23 PM) IMMUNOLOGY Most recent to 1 2 oldest [Reference Range]: Treponemal Scr [Non Non Reactive Reactive] *NA* (06/20/14 7:23 PM) Hep Bs Ag [Negative] Negative *NA* (06/20/14 7:23 PM) HEMATOLOGY Most recent to 1 2 oldest [Reference Range]: WBC [3.7-10.4 K/CMM] 8.7 K/CMM (06/20/14 7:23 PM) RBC [4.20-5.40 4.04 M/CMM M/CMM] *LOW* (06/20/14 7:23 PM) Hgb [12.0-16.0 g/dL] 9.9 g/dL 12.0 g/dL *LOW* (06/20/14 7:23 PM) (06/21/14 4:02 AM) Hct [36.0-48.0 %] 29.5 % 35.7 % *LOW* *LOW* (06/21/14 4:02 AM) (06/20/14 7:23 PM) MCV [80.0-98.0 fL] 88.5 fL (06/20/14 7:23 PM) MCH [27.0-31.0 pg] 29.7 pg (06/20/14 7:23 PM) MCHC [32.0-36.0 33.5 g/dL g/dL] (06/20/14 7:23 PM) RDW [11.5-14.5 %] 15.5 % *HI* (06/20/14 7:23 PM) Platelet [133-450 342 K/CMM K/CMM] (06/20/14 7:23 PM) MPV [7.4-10.4 fL] 8.1 fL (06/20/14 7:23 PM) Segs [45.0-75.0 %] 63.1 % (06/20/14 7:23 PM) Lymphocytes 29.8 % [20.0-40.0 %] (06/20/14 7:23 PM) Monocytes [2.0-12.0 4.9 % %] (06/20/14 7:23 PM) Eosinophils [0.0-4.0 1.4 % %] (06/20/14 7:23 PM) Basophils [0.0-1.0 0.8 % %] (06/20/14 7:23 PM) Segs-Bands # 5.5 K/CMM [1.5-8.1 K/CMM] (06/20/14 7:23 PM) Lymphocytes # 2.6 K/CMM [1.0-5.5 K/CMM] (06/20/14 7:23 PM) Monocytes # [0.0-0.8 0.4 K/CMM K/CMM] (06/20/14 7:23 PM) Eosinophils # 0.1 K/CMM [0.0-0.5 K/CMM] (06/20/14 7:23 PM) Basophils # [0.0-0.2 0.1 K/CMM K/CMM] (06/20/14 7:23 PM) Medications Administered During Your Visit No data available for this section Immunizations No data available for this section Social History Social History Type Response Smoking Status Never smoker, Exposure to Tobacco Smoke None, Cigarette Smoking Last 365 Days No, Reg Smoking Cessation Counseling No Assessment and Plan Extracted from: Title: OB Progress Note Author: Shelly Castañeda Date: 06/21/14 Impression and Plan A/P: 39yo s/p TSVD and post BTL is POD #1 s/p D&C for retained products. 1. POD 1: Pt doing well and meeting all post op milestones. Starting Hgb 9.9 --> 800cc EBL--> 12. No signs or symptoms of anemia. VSS. Bleeding is scant. Pt received dose of doxycycline intra-op and will get the next dose this am. She c/o constipation so will send home on colace 100mg po BID x one month. 2. Rh +, Rubella immune, Bottle feeding. Pt was A2GDM and will need 75g gtt in post period. 3. CHTN - on Methyldopa 250mg TID, BPs nml range. Extracted from: Title: Clinical Document Author: Judith Jurado MD Date: 06/20/14 OB H&P Patient: PAIGE HERNANDEZ Age: 39 years Sex: Female : 1975 Associated Diagnoses: None Author: Wilma Piña MD Basic Information Gestational Age: * Note: EGA calculated as of 06/20/2014 No EGA/MACARIO calculations have been recorded . History of Present Illness Maternal history Maternal History (ST) Maternal History (ST) Maternal History : 4 Para: 43 SAB: 0 IAB: 0 Maternal Pre- Labs Transcribed ABO Blood Type: Unknown Transcribed Substance Abuse: Unknown Transcribed GBS results: Unknown Transcribed HBsAg: Unknown Transcribed HIV Status: Unknown Transcribed HIV 3rd Trimester: Unknown Transcribed RPR/VDRL Results: Unknown Transcribed STD Results: None, Unknown . HPI: 39yo from TSVD and tubal on 05/29 sent from clinic today with concern for retained POC. Sono today with EMS of 2.9 cm. Pt still with vaginal bleeding. Bled through 2 pairs of pants this AM. Reports blood clots as well. Reports dizziness and lightheadedness. Last ate at 11am. Has not drank or ate anything since. Vaginal delivery complicated by PPH, EBL 500cc. Not currently in pain. PNC: Dr Martinez. Last appt 06/20/2014 - PNL: O+/-, RI, GBS neg, 3T HIV neg, RPR NR, HBsAg neg - Bottle feeding. - S/p BTL. - A2GDM - Was on glyburide 1.5mg in AM and 5mg in PM during pregnacy. Not on it anymore. - CHTN - on methyldopa 250mg TID - osteoarthritis of left knee, s/p 2 cortisol injections this OB Hx: 1994 - TSVD, female, 0cf46my 1998 - TSVD, female, 8lb9oz 2001 - TSVD, female, 9uhs5uk 2013- TSVD female, 7#9oz [employer] Hx: 13/R/3d. Denies h/o abnormal pap smears or STDS. PMH: cHTN, osteoarthritis. PSH: denies Meds: Methyldopa, Fe, Colace, ibuprofen PRN. All: NKDA Fam Hx: DM, HTN, HLD, heart disease Soc Hx: denies tobacco, etoh or drug use Health Status Allergies: (Active and Proposed Allergies Only) NKDA (Severity: Unknown severity, Onset: Unknown) Current medications: Home Medications (4) Active Colace 100 mg oral capsule 100 mg=1 cap, PO, BID ferrous sulfate 325 mg oral enteric coated tablet 325 mg=1 tab, PO, BID ibuprofen 600 mg oral tablet 600 mg=1 tab, PRN, PO, Q6H Tylenol with Codeine #3 oral tablet 1 tab, PRN, PO, Q6H , Medications (0) Active Scheduled Meds: None Unscheduled Meds: None PRN Meds: None One Time Meds: None Continuous Infusions: None Problem list: No problems recorded Physical Examination VS/Measurements Inpatient Vital signs (ST) VitalsTmp(F)[id number] 06/20 18:[id number]------ 24 Hr Tmax: 97.1F (36.17c) at 06/20 18:10Vital Signs are the last 5 in the past 48 hours. PE: Gen: NAD, pale CV: RRR Resp: CTAB Abd: soft/NT/gravid SSE: defer to OR SVE: cervix ft. uterus approx 15 weeks size. Histories History ,40,0,4 # 1 Baby 1Outcome Date: 1994 Outcome: Live Outcome or Result: Vaginal Gender: --Gest Age: 40 weeks Wt: -- Hospital: --[facility]: -- Child's Name: --Baby's Father: -- # 2 Baby 1Outcome Date: 1998 Outcome: Live Outcome or Result: Vaginal Gender: --Gest Age: 40 weeks Wt: -- Hospital: --[facility]: -- Child's Name: --Baby's Father: -- # 3 Baby 1Outcome Date: 2001 Outcome: Live Outcome or Result: Vaginal Gender: --Gest Age: 40 weeks Wt: -- Hospital: --[facility]: -- Child's Name: --Baby's Father: -- # 4 Baby 1Outcome Date: 05/29/2014Neonate Outcome: Live Outcome or Result: Vaginal Gender: FemaleGest Age: 38 weeks Wt: 3575 g Hospital: --[facility] Labor: 8 hr 39 min Child's Name: --Baby's Father: -- Complications: None Past Medical History: Resolved ([id number]): Onset on 05/26/2014 at 39 years. Resolved on 05/29/2014 at 39 years. Hypertension ([id number]): Onset on 12/14/2013 at 38 years. Resolved. Carpal tunnel ([id number]): Onset on 06/16/2001 at 26 years. Resolved. ([id number]): Onset on 09/09/2000 at 25 years. Resolved in 2001 at 26 years. ([id number]): Onset on 09/09/1997 at 22 years. Resolved in 1998 at 23 years. ([id number]): Onset on 09/09/1993 at 18 years. Resolved in 1994 at 19 years. Family History: Family History (ST) Father: Heart attack Mother: High blood pressure; Type 1 diabetes mellitus Procedure history: No active procedure history items have been selected or recorded. Social History Tobacco Details: Use: Never smoker. Tobacco smoke exposure: None. Did the Patient Smoke Cigarettes Anytime During the Last 365 Days? No. Cessation Counseling Provided? No. Details: Use: Never smoker. Tobacco smoke exposure: None. Did the Patient Smoke Cigarettes Anytime During the Last 365 Days? Yes. Cessation Counseling Provided? No. . Review / Management Results review: No qualifying data available. Impression and Plan A/P: 39yo s/p TSVD and post BTL here with retained POC. 1. Retained POC: EMS 2.9 cm. Pt with vaginal bleeding. Will proceed with US guided D&C. Patient informed of risks of procedure such as bleeding to anemia, need of transfusion, need of hysterectomy or/and oophorectomy, risk of infection, or damage to surrounding structures including bowel or bladder, and risk of uteine perforation requiring possible laparoscopy vs laparotomy. Pt voices understanding and wishes to proceed. 2. Hgb: 11.7 -> 500ml. Reports s/sx of anemia. Will get T&S along with CBC 3. Rh +, Rubella immune, Bottle feeding. 4. CHTN - on Methyldopa 250mg TID, BPs nml range. 5. A2GDM - not currntly on meds Thomas Piña MD PGY-3 Signature Line Wilma Piña MD Electronically Signed: 06/20/14 19:47
--- OUTSIDE RECORDS SUMMARY | 2018-08-21 12:13 | XMS REPORT | Continuity of Care Document ---
Author Author [facility] Interface Address Unknown Phone Unavailable Problems Problem Status Onset Date Classification Date Reported Comments Source Resolved 05/26/2014 Problem 07/10/2014 [facility] PRE ADMIT Active 05/07/2014 [facility] INDUCTION Active 05/07/2014 [facility] V23.9 / 009.90 Active 04/19/2014 [facility] Hypertension Resolved 12/14/2013 Problem 07/10/2014 [facility] DNC Active 06/16/2013 [facility] Carpal tunnel Resolved 06/16/2001 Problem 07/10/2014 [facility] Depression Active Problem 08/19/2018 [facility] Left knee pain Active Problem 08/19/2018 [facility] Hypertension Active Problem 08/19/2018 [facility] Rheumatoid arthritis Active Problem 08/19/2018 [facility] BMI 45.0-49.9, adult Active Diagnosis 08/19/2018 [facility] Dizziness Active Diagnosis 08/04/2018 [facility] Abnormal urinalysis Active Diagnosis 08/04/2018 [facility] PROLONGED PREG-UNSP Active [facility] ADMINISTRTVE ENCOUNT NOS Active [facility] V23.9 Active [facility] Medications Medication Details Route Status Patient Instructions Ordering Provider Order Date Source Lisinopril 1 tablet Orally Active 10 mg Orally Once a day [place] 07/03/2018 [facility] Methotrexate as directed Orally Active 2.5 MG Orally 10 pills a week [place] 07/03/2018 [facility] Folic Acid 1 tablet Orally Active 1 MG Orally Once a day [place] 07/03/2018 [facility] Wellbutrin XL 1 tablet in the morning Orally Active 150 MG Orally Once a day [place] 07/03/2018 [facility] Humira 0.8 ml Subcutaneous Active 40 MG/0.8ML Subcutaneous [place] 07/03/2018 [facility] ferrous sulfate 325 mg, 1 tab, Route: PO, Drug form: ECTAB, BID, Dosing Weight 110, kg, Start date: 06/21/14 17:00:00, Duration: 30 day, Stop date: 07/21/14 9:00:00Notes: Give with food. "Do Not Crush" Inactive 06/21/2014 [facility] Atropine Sulfate 0.025 MG / Diphenoxylate Hydrochloride 2.5 MG Oral Tablet [Lomotil] 2 tab, Route: PO, Drug Form: TAB, Dosing Weight 110, kg, QID, PRN Loose Stools, Start date: 06/21/14 9:06:00, Duration: 30 day, Stop date: 07/21/14 9:05:00Notes: (Same As: Lomotil) MAX Adult dose=8 tabs/day Inactive 06/21/2014 [facility] Multivitamins oral tablet 1 tab, Route: PO, Drug Form: TAB, Dosing Weight 110, kg, Daily, Start date: 06/21/14 9:00:00, Duration: 30 day, Stop date: 07/20/14 9:00:00 Inactive 06/21/2014 [facility] Methyldopa 250 MG Oral Tablet 250 mg, 1 tab, Route: PO, Drug form: TAB, TID, Dosing Weight 110, kg, Start date: 06/21/14 9:00:00, Duration: 30 day, Stop date: 07/20/14 17:00:00Notes: May interfere w/enteral feedings. (Same as:Aldomet) Inactive 06/21/2014 [facility] Acetaminophen 300 MG / Codeine Phosphate 30 MG Oral Tablet [Tylenol with Codeine #3] 1 tab, PO, Q4H, for pain, # 30 tab, 0 Refill(s) On Hold 06/21/2014 [facility] Docusate Sodium 100 MG Oral Capsule [Colace] 100 mg=1 cap, PO, BID, Constipation, # 20 cap, 0 Refill(s) On Hold 06/21/2014 [facility] Doxycycline 100 mg, 1 tab, Route: PO, Drug form: TAB, ONCE, Dosing Weight 110, kg, Start date: 06/21/14 4:00:00, Stop date: 06/21/14 4:00:00Notes: NO MILK/ANTACIDS/IRON Take 1 hour before or 2 hours after dairy products Inactive 06/21/2014 [facility] benzocaine-menthol topical 1 lozenge, Route: MUCOUS MEM, Drug Form: [place], Q4H, PRN Sore Throat, Start date: 06/21/14 0:06:00, Duration: 30 day, Stop date: 07/21/14 0:05:00Notes: Cepacol lozenges Dispense 1 box=16 lozenges (Same As: Cepacol Lozenges) Inactive 06/21/2014 [facility] Cepacol Lozenge 1 lozenge, Route: MUCOUS MEM, Q4H, Drug form: DENTON, PRN Sore Throat, Start date: 06/21/14 0:01:00, Duration: 30 day, Stop date: 07/21/14 0:00:00 Inactive 06/21/2014 [facility] Atropine Sulfate 0.025 MG / Diphenoxylate Hydrochloride 2.5 MG Oral Tablet [Lomotil] 2 tab, Route: PO, Drug Form: TAB, Dosing Weight 110, kg, QID, PRN Loose Stools, Start date: 06/20/14 22:47:00, Duration: 30 day, Stop date: 07/20/14 22:46:00Notes: (Same As: Lomotil) MAX Adult dose=8 tabs/day Inactive 06/21/2014 [facility] Doxycycline 100 mg, Route: IV, Drug form: PDR/INJ, ONCE, Dosing Weight 110, kg, Priority: STAT, Start date: 06/20/14 21:19:00, Stop date: 06/20/14 21:19:00Notes: (Same as: Vibramycin) Inactive 06/21/2014 [facility] M-M-R II 0.5 mL, Route: SUB-Q, Drug Form: PDR/INJ, Dosing Weight 110, kg, ONCALL, Give only if patient rubella non-immune, Start date: 06/20/14 19:00:00, Duration: 1 doses or timesNotes: (Same as: M-M-R II) (me apdfu-zchbf-qstjwrl virus vaccine 0.5 ml INJ VL) GIVE PRIOR TO DISCHARGE No Longer Active 06/21/2014 [facility] Famotidine 20 mg, 2 mL, Route: IVP, Drug form: INJ, ONCALL, Dosing Weight 110, kg, Start date: 06/20/14 19:00:00, Duration: 30 day, Stop date: 07/20/14 18:59:00Notes: (Same as: Pepcid) Can be dilute in 5-10cc NS IVP: Slow IV push over at least 2 minutes. No Longer Active 06/21/2014 [facility] Misoprostol 1,000 microgram, 5 tab, Route: UT, Drug form: TAB, ONCALL, Dosing Weight 110, kg, Start date: 06/20/14 19:00:00, Duration: 1 doses or timesNotes: (Same as:Cytotec) Take with food Inactive 06/21/2014 [facility] Methylergonovine 0.2 mg, 1 mL, Route: IM, Drug form: INJ, ONCALL, Dosing Weight 110, kg, Start date: 06/20/14 19:00:00, Duration: 30 day, Stop date: 07/20/14 18:59:00Notes: (Same as:Methergine) No Longer Active 06/21/2014 [facility] Citric Acid / sodium citrate 30 mL, Route: PO, Drug Form: SOLN, Dosing Weight 110, kg, ONCALL, Start date: 06/20/14 19:00:00, Duration: 30 day, Stop date: 07/20/14 18:59:00Notes: (Same As: Bicitra, Cytra-2) Sodium citrate-citric acid (500-334 mg/5 mL): 1 mL contains sodium 1 mEq/mL and bicarbonate 1 mEq/mL No Longer Active 06/21/2014 [facility] Carboprost 250 microgram, 1 mL, Route: IM, Drug form: INJ, ONCALL, Dosing Weight 110, kg, Start date: 06/20/14 19:00:00, Duration: 30 day, Stop date: 07/20/14 18:59:00Notes: (Same As: Hemabate) No Longer Active 06/21/2014 [facility] Acetaminophen 325 MG / Hydrocodone Bitartrate 5 MG Oral Tablet 1 tab, Route: PO, Drug Form: TAB, Dosing Weight 110, kg, Q4H, PRN Pain Score 4-6, Start date: 06/20/14 18:53:00, Duration: 30 day, Stop date: 07/20/14 18:52:00Notes: (Same as: Littcarr 325/5) Do not exceed 4gm/day of acetaminophen. No Longer Active 06/21/2014 [facility] Acetaminophen 325 MG / Hydrocodone Bitartrate 10 MG Oral Tablet 1 tab, Route: PO, Drug Form: TAB, Dosing Weight 110, kg, Q4H, PRN Pain Score 7-10, Start date: 06/20/14 18:53:00, Duration: 30 day, Stop date: 07/20/14 18:52:00Notes: Do not exceed 4gm/day of acetaminophen. (Same as: Littcarr 325/10) No Longer Active 06/21/2014 [facility] Acetaminophen 650 mg, 2 tab, Route: PO, Drug form: TAB, Q4H, Dosing Weight 110, kg, PRN Headache 1-3, Start date: 06/20/14 18:53:00, Duration: 30 day, Stop date: 07/20/14 18:52:00Notes: Do not exceed 4 gm/day. (S nadja as: Tylenol) No Longer Active 06/21/2014 [facility] Ibuprofen 800 mg, 1 tab, Route: PO, Drug form: TAB, Q8H, Dosing Weight 110, kg, PRN Pain Score 6-10, Start date: 06/20/14 18:53:00, Duration: 30 day, Stop date: 07/20/14 18:52:00Notes: (Same as: Motrin) "Do Not Crush" Take with food. No Longer Active 06/21/2014 [facility] Oxytocin 0.03 UNT/ML Injectable Solution 30 unit, 500 mL, Rate: 42 ml/hr, Infuse over: 11.9 hr, Dosing Weight 110, kg, Route: IV, Total Volume: 500 mL, Start date: 06/20/14 18:53:00, Duration: 2 doses or times, Stop date: 06/21/14 18:40:00, Replace Every: 11.9 hrNotes: (Same as: OXYTOCIN-D5LR) No Longer Active 06/21/2014 [facility] Lactated Ringers IV 1,000 mL 1,000 mL, Rate: 100 ml/hr, Infuse over: 10 hr, Route: IV, Dosing Weight 110 kg, Total Volume: 1,000, Start date: 06/20/14 18:53:00, Duration: 30 day, Stop date: 07/20/14 18:52:00 No Longer Active 06/21/2014 [facility] Ondansetron 4 mg, 2 mL, Route: IVP, Drug form: INJ, Q8H, Dosing Weight 110, kg, PRN Nausea & Vomiting, Start date: 06/20/14 18:53:00, Duration: 30 day, Stop date: 07/20/14 18:52:00Notes: (Same as: Zofran) No Longer Active 06/21/2014 [facility] Bisacodyl 10 mg, 1 supp, Route: UT, Drug form: SUPP, PRN, Dosing Weight 110, kg, PRN Other -See Comment, Start date: 06/20/14 18:53:00, Duration: 30 day, Stop date: 07/20/14 18:52:00Notes: (Same As: Dulcolax, Bisco- Lax) No Longer Active 06/21/2014 [facility] lanolin topical 1 appl, Route: TOP, PRN, Drug form: OINT, PRN Other -See Comment, Start date: 06/20/14 18:53:00, Duration: 30 day, Stop date: 07/20/14 18:52:00 No Longer Active 06/21/2014 [facility] Methylergonovine 0.2 mg, 1 mL, Route: IM, Drug form: INJ, PRN, Dosing Weight 110, kg, PRN Other -See Comment, Start date: 06/20/14 18:53:00, Duration: 30 day, Stop date: 07/20/14 18:52:00Notes: (Same as:Methergine) No Longer Active 06/21/2014 [facility] zolpidem 5 mg, 1 tab, Route: PO, Drug form: TAB, Bedtime, Dosing Weight 110, kg, PRN Sleep, Start date: 06/20/14 18:53:00, Duration: 30 day, Stop date: 07/20/14 18:52:00Notes: (Same As: Ambien) No Longer Active 06/21/2014 [facility] Benzocaine 200 MG/ML Topical [place] [Dermoplast] 1 spray, Route: TOP, PRN, Drug form: SPRY, PRN Irritation, Start date: 06/20/14 18:53:00, Duration: 30 day, Stop date: 07/20/14 18:52:00Notes: (Same As: Dermoplast) FOR EXTERNAL USE ONLY No Longer Active 06/21/2014 [facility] Docusate 100 mg, 1 cap, Route: PO, Drug form: CAP, BID, Dosing Weight 110, kg, PRN Constipation, Start date: 06/20/14 18:53:00, Duration: 30 day, Stop date: 07/20/14 18:52:00Notes: (Same as: Colace) (Do Not C montez) No Longer Active 06/21/2014 [facility] Ondansetron 4 mg, 2 mL, Route: IVP, Drug form: INJ, Q8H, Dosing Weight 110, kg, PRN Nausea & Vomiting, Start date: 06/20/14 18:52:00, Duration: 30 day, Stop date: 07/20/14 18:51:00Notes: (Same as: Zofran) No Longer Active 06/21/2014 [facility] Lidocaine Hydrochloride 10 MG/ML Injectable Solution 20 mL, Route: PERCUT, Drug Form: INJ, Dosing Weight 110, kg, PRN, PRN Other -See Comment, Start date: 06/20/14 18:52:00, Duration: 1 doses or times, Stop date: Limited # of timesNotes: (Same as: Xylocaine) No Longer Active 06/21/2014 [facility] Terbutaline 0.25 mg, 0.25 mL, Route: SUB-Q, Drug form: INJ, PRN, Dosing Weight 110, kg, PRN Other -See Comment, Start date: 06/20/14 18:52:00, Duration: 1 doses or times, Stop date: Limited # of timesNotes: DO NOT USE IN FO[employer] AREA (Same As: Brethine) No Longer Active 06/21/2014 [facility] Butorphanol 1 mg, 1 mL, Route: IVP, Drug form: INJ, Q2H, Dosing Weight 110, kg, PRN Pain Score 1-5, Start date: 06/20/14 18:52:00, Duration: 30 day, Stop date: 07/20/14 18:51:00Notes: (Same As: Stadol) No Longer Active 06/21/2014 [facility] Oxytocin 0.03 UNT/ML Injectable Solution 30 unit, 500 mL, Rate: 42 ml/hr, Infuse over: 11.9 hr, Dosing Weight 110, kg, Route: IV, Total Volume: 500 mL, Start date: 06/20/14 18:52:00, Duration: 2 day, Stop date: 06/22/14 18:51:00, Replace Every: 11.9 hrNotes: (Same as: OXYTOCIN-D5LR) Inactive 06/21/2014 [facility] Lactated Ringers IV 1,000 mL 1,000 mL, Rate: 125 ml/hr, Infuse over: 8 hr, Route: IV, Dosing Weight 110 kg, Total Volume: 1,000, Start date: 06/20/14 18:52:00, Duration: 30 day, Stop date: 07/20/14 18:51:00 Inactive 06/21/2014 [facility] Calcium Chloride 0.0014 MEQ/ML / Potassium Chloride 0.004 MEQ/ML / Sodium Chloride 0.103 MEQ/ML / Sodium Lactate 0.028 MEQ/ML Injectable Solution 1,000 mL, 1,000 ml/hr, Infuse Over: 1 hr, Route: IV, 1,000, Drug form: INJ, ONCE, Dosing Weight 110 kg, Start date: 06/20/14 18:52:00, Stop date: 06/20/14 18:52:00, Bolus for regional anesthesia per unit protocol Inactive 06/21/2014 [facility] ferrous sulfate 325 mg oral enteric coated tablet 325 mg=1 tab, PO, BID, # 60 tab, 0 Refill(s) Active 05/31/2014 [facility] Docusate Sodium 100 MG Oral Capsule [Colace] 100 mg=1 cap, PO, BID, # 60 cap, 0 Refill(s) Active 05/31/2014 [facility] ibuprofen 600 mg oral tablet 600 mg=1 tab, PO, Q6H, Pain or Fever, Take with food, # 40 tab, 0 Refill(s)Special Instructions: Take with food Active 05/31/2014 [facility] Acetaminophen 300 MG / Codeine Phosphate 30 MG Oral Tablet [Tylenol with Codeine #3] 1 tab, PO, Q6H, for pain, # 30 tab, 0 Refill(s) Active 05/31/2014 [facility] Acetaminophen 300 MG / Codeine Phosphate 30 MG Oral Tablet [Tylenol with Codeine #3] 2 tab, Route: PO, Drug Form: TAB, Dosing Weight 120.909, kg, Q4H, PRN Pain Score 4-6, NOW, Start date: 05/30/14 9:22:00, Duration: 30 day, Stop date: 06/29/14 9:21:00, > 30 kg; Pediatric Dosing; pain score 4- 6Special Instructions: > 30 kg; Pediatric Dosing; pain score 4-6Notes: Do not exceed 4gm/day of acetaminophen. (Same as: Tylenol with Codeine # 3) No Longer Active 05/30/2014 [facility] Multivitamins oral tablet 1 tab, Route: PO, Drug Form: TAB, Dosing Weight 120.909, kg, Daily, Start date: 05/30/14 9:00:00, Duration: 30 day, Stop date: 06/28/14 9:00:00 No Longer Active 05/30/2014 [facility] Naloxone 0.4 mg, 1 mL, Route: IVP, Drug form: INJ, ONCALL, Dosing Weight 120.909, kg, Start date: 05/29/14 22:00:00, Duration: 24 hr, Stop date: 05/30/14 21:59:00Notes: Same as Narcan No Longer Active 05/30/2014 [facility] Ondansetron 4 mg, 2 mL, Route: IVP, Drug form: INJ, Q6H, Dosing Weight 120.909, kg, PRN Nausea & Vomiting, Start date: 05/29/14 21:26:00, Duration: 24 hr, Stop date: 05/30/14 21:25:00Notes: (Same as: Zofran) No Longer Active 05/30/2014 [facility] Ketorolac 30 mg, 1 mL, Route: IVP, Drug form: INJ, Q6H, Dosing Weight 120.909, kg, PRN Pain Score 4-6, Start date: 05/29/14 21:26:00, Duration: 24 hr, Stop date: 05/30/14 21:25:00Notes: (Same as:Toradol) IV bolus must be given >15 seconds. Give IM administration slowly and deeply into the muscle. Not for use > 4 days No Longer Active 05/30/2014 [facility] tramadol hydrochloride 50 MG Oral Tablet 100 mg, 2 tab, Route: PO, Drug form: TAB, Q6H, Dosing Weight 120.909, kg, PRN Pain Score 4-6, Start date: 05/29/14 21:10:00, Duration: 30 day, Stop date: 06/28/14 21:09:00Notes: Not to exceed 400mg/day. (Same As: Ultram) No Longer Active 05/30/2014 [facility] M-M-R II 0.5 mL, Route: SUB-Q, Drug Form: PDR/INJ, Dosing Weight 120.909, kg, ONCALL, Give only if patient rubella non-immune, Start date: 05/29/14 17:00:00, Duration: 1 doses or timesNotes: (Same as: M-M-R II) (tzoipis-gcsef-jeceiiz virus vaccine 0.5 ml INJ VL) GIVE PRIOR TO DISCHARGE No Longer Active 05/29/2014 [facility] Acetaminophen 325 MG / Hydrocodone Bitartrate 10 MG Oral Tablet 1 tab, Route: PO, Drug Form: TAB, Dosing Weight 120.909, kg, Q4H, PRN Pain Score 7-10, Start date: 05/29/14 16:12:00, Duration: 30 day, Stop date: 06/28/14 16:11:00Notes: Do not exceed 4gm/day of acetaminophen. (Same as: Littcarr 325/10) Inactive 05/29/2014 [facility] Acetaminophen 650 mg, 2 tab, Route: PO, Drug form: TAB, Q4H, Dosing Weight 120.909, kg, PRN Headache 1-3, Start date: 05/29/14 16:12:00, Duration: 30 day, Stop date: 06/28/14 16:11:00Notes: Do not exceed 4 gm/day. (Same as: Tylenol) No Longer Active 05/29/2014 [facility] Ibuprofen 600 mg, 1 tab, Route: PO, Drug form: TAB, Q6H, Dosing Weight 120.909, kg, PRN Pain Score 1-5, Start date: 05/29/14 16:12:00, Duration: 30 day, Stop date: 06/28/14 16:11:00Notes: (Same as: Motrin) "Do Not Crush" Take with food. No Longer Active 05/29/2014 [facility] Acetaminophen 325 MG / Hydrocodone Bitartrate 5 MG Oral Tablet 1 tab, Route: PO, Drug Form: TAB, Dosing Weight 120.909, kg, Q4H, PRN Pain Score 4-6, Start date: 05/29/14 16:12:00, Duration: 30 day, Stop date: 06/28/14 16:11:00Notes: (Same as: Littcarr 325/5) Do not exceed 4gm/day of acetaminophen. Inactive 05/29/2014 [facility] Methylergonovine 0.2 mg, 1 mL, Route: IM, Drug form: INJ, PRN, Dosing Weight 120.909, kg, PRN Other -See Comment, Start date: 05/29/14 16:12:00, Duration: 30 day, Stop date: 06/28/14 16:11:00Notes: (Same as:Methergine) No Longer Active 05/29/2014 [facility] zolpidem 5 mg, 1 tab, Route: PO, Drug form: TAB, Bedtime, Dosing Weight 120.909, kg, PRN Sleep, Start date: 05/29/14 16:12:00, Duration: 30 day, Stop date: 06/28/14 16:11:00Notes: (Same As: Ambien) No Longer Active 05/29/2014 [facility] Benzocaine 200 MG/ML Topical [place] [Dermoplast] 1 spray, Route: TOP, PRN, Drug form: SPRY, PRN Irritation, Start date: 05/29/14 16:12:00, Duration: 30 day, Stop date: 06/28/14 16:11:00Notes: (Same As: Dermoplast) FOR EXTERNAL USE ONLY No Longer Active 05/29/2014 [facility] lanolin topical 1 appl, Route: TOP, PRN, Drug form: OINT, PRN Other -See Comment, Start date: 05/29/14 16:12:00, Duration: 30 day, Stop date: 06/28/14 16:11:00Notes: (Same as:Lanolin) No Longer Active 05/29/2014 [facility] Bisacodyl 15 mg, 3 tab, Route: PO, Drug form: ECTAB, Daily, Dosing Weight 120.909, kg, PRN Other -See Comment, Start date: 05/29/14 16:12:00, Duration: 30 day, Stop date: 06/28/14 16:11:00Notes: (Same As: Dulcola x, Correctol) (Do Not Crush) "Do Not Crush" No Longer Active 05/29/2014 [facility] Docusate 100 mg, 1 cap, Route: PO, Drug form: CAP, BID, Dosing Weight 120.909, kg, PRN Constipation, Start date: 05/29/14 16:12:00, Duration: 30 day, Stop date: 06/28/14 16:11:00Notes: (Same as: Colace) (Do Not Crush) No Longer Active 05/29/2014 [facility] Ondansetron 4 mg, 2 mL, Route: IVP, Drug form: INJ, Q8H, Dosing Weight 120.909, kg, PRN Nausea & Vomiting, Start date: 05/29/14 16:12:00, Duration: 30 day, Stop date: 06/28/14 16:11:00Notes: (Same as: Zofran) No Longer Active 05/29/2014 [facility] Oxytocin 0.03 UNT/ML Injectable Solution 30 unit, 500 mL, Rate: 42 ml/hr, Infuse over: 11.9 hr, Dosing Weight 120.909, kg, Route: IV, Total Volume: 500 mL, Start date: 05/29/14 16:12:00, Duration: 2 doses or times, Stop date: 05/30/14 15:59:00, Replace Every: 11.9 hrNotes: (Same as: OXYTOCIN- D5LR) No Longer Active 05/29/2014 [facility] Lactated Ringers IV 1,000 mL 1,000 mL, Rate: 100 ml/hr, Infuse over: 10 hr, Route: IV, Dosing Weight 120.909 kg, Total Volume: 1,000, Start date: 05/29/14 16:12:00, Duration: 30 day, Stop date: 06/28/14 16:11:00 No Longer Active 05/29/2014 [facility] Oxytocin 0.03 UNT/ML Injectable Solution 30 unit, 500 mL, Rate: Titrate, Dosing Weight 120.909, kg, Route: IV, Total Volume: 500 mL, Start date: 05/28/14 19:14:00, Duration: 2 day, Stop date: 05/30/14 19:13:00, Replace Every: 24 hrNotes: (Same as: OXYTOCIN-D5LR) No Longer Active 05/29/2014 [facility] D5LR 1,000 mL 1,000 mL, Rate: 125 ml/hr, Infuse over: 8 hr, Route: IV, Dosing Weight 120.909 kg, Total Volume: 1,000, Start date: 05/28/14 18:27:00, Duration: 30 day, Stop date: 06/27/14 18:26:00 No Longer Active 05/29/2014 [facility] Misoprostol 50 microgram, 2 ea, Route: PO, Drug form: TAB, Q4H, Dosing Weight 120.909, kg, Start date: 05/28/14 16:00:00, Duration: 30 day, Stop date: 06/27/14 12:00:00Notes: (Same as:Cytotec) Take with food 25 microgram=1/4 tab of 100 microgram. No Longer Active 05/28/2014 [facility] 1 oral capsule 0 Refill(s) No Longer Active 05/28/2014 [facility] Glyburide 0 Refill(s) No Longer Active 05/28/2014 [facility] Methyldopa 0 Refill(s) No Longer Active 05/28/2014 [facility] Cytotec 50 microgram, Route: PO, Drug form: TAB, ONCE, Dosing Weight 120.909, kg, Start date: 05/28/14 9:05:00, Stop date: 05/28/14 9:05:00 Inactive 05/28/2014 [facility] Remove - dinoprostone (Cervidil) insert 1 supp, Route: VAG, Drug Form: INS, Dosing Weight 120.909, kg, ONCALL, Start date: 05/28/14 9:00:00, Duration: 30 day, Stop date: 06/27/14 8:59:00Notes: Vaginal insert: to be removed 1 hour prior to oxytocin administration or 12 hours after insertion. Inactive 05/28/2014 [facility] Cervidil 10 mg, 1 supp, Route: VAG, Drug form: INS, ONCE, Dosing Weight 120.909, kg, Start date: 05/27/14 20:35:00, Duration: 1 doses or times, Stop date: 05/27/14 20:35:00Notes: (Same as: Cervidil) Inactive 05/28/2014 [facility] Oxytocin 0.03 UNT/ML Injectable Solution 30 unit, 500 mL, Rate: Titrate, Dosing Weight 120.909, kg, Route: IV, Total Volume: 500 mL, Start date: 05/27/14 8:00:00, Duration: 2 day, Stop date: 05/29/14 7:59:00, Replace Every: 24 hrNotes: (Same as: OXYTOCIN-D5LR) No Longer Active 05/27/2014 [facility] Misoprostol 25 microgram, 1 ea, Route: VAG, Drug form: TAB, Q3H, Dosing Weight 120.909, kg, Start date: 05/27/14 5:00:00, Duration: 30 day, Stop date: 06/26/14 2:00:00Notes: (Same as:Cytotec) Take with food 25 microgram=1/4 tab of 100 microgram. No Longer Active 05/27/2014 [facility] Tylenol 650 mg, 2 tab, Route: PO, Drug form: TAB, Q6H, Dosing Weight 120.909, kg, PRN Pain Score 1-3, Start date: 05/27/14 4:38:00, Duration: 30 day, Stop date: 06/26/14 4:37:00Notes: Do not exceed 4 gm/day. (Same as: Tylenol) No Longer Active 05/27/2014 [facility] Dextrose 50% Syringe 12.5 gm, 25 mL, Route: IVP, Drug Form: INJ, Dosing Weight 120.909, kg, PRN, PRN Abnormal Lab Result, Start date: 05/27/14 4:28:00, Duration: 30 day, Stop date: 06/26/14 4:27:00 No Longer Active 05/27/2014 [facility] Regular Insulin, Human 100 UNT/ML Injectable Solution 3 unit, 0.03 mL, Route: SUB-Q, Drug form: SOLN, PRN, Dosing Weight 120.909, kg, PRN Abnormal Lab Result, Start date: 05/27/14 4:28:00, Duration: 30 day, Stop date: 06/26/14 4:27:00Notes: (Same as: Humulin R) Roll in palms of hands gently; Do not shake vigorously. "single patient use only" (Restricted to patients requiring a dose > 60 units) Stable for 28 days at room temperature Expires in days from Date No Longer Active 05/27/2014 [facility] Carboprost 250 microgram, 1 mL, Route: IM, Drug form: INJ, ONCALL, Dosing Weight 120.909, kg, Start date: 05/27/14 4:00:00, Duration: 30 day, Stop date: 06/26/14 3:59:00Notes: (Same As: Hemabate) No Longer Active 05/27/2014 [facility] Misoprostol 1,000 microgram, 5 tab, Route: UT, Drug form: TAB, ONCALL, Dosing Weight 120.909, kg, Start date: 05/27/14 4:00:00, Duration: 1 doses or timesNotes: (Same as:Cytotec) Take with food No Longer Active 05/27/2014 [facility] Citric Acid / sodium citrate 30 mL, Route: PO, Drug Form: SOLN, Dosing Weight 120.909, kg, ONCALL, Start date: 05/27/14 4:00:00, Duration: 30 day, Stop date: 06/26/14 3:59:00Notes: (Same As: Bicitra, Cytra-2) Sodium citrate-citric acid (500-334 mg/5 mL): 1 mL contains sodium 1 mEq/mL and bicarbonate 1 mEq/mL No Longer Active 05/27/2014 [facility] Methylergonovine 0.2 mg, 1 mL, Route: IM, Drug form: INJ, ONCALL, Dosing Weight 120.909, kg, Start date: 05/27/14 4:00:00, Duration: 30 day, Stop date: 06/26/14 3:59:00Notes: (Same as:Methergine) No Longer Active 05/27/2014 [facility] Famotidine 20 mg, 2 mL, Route: IVP, Drug form: INJ, ONCALL, Dosing Weight 120.909, kg, Start date: 05/27/14 4:00:00, Duration: 30 day, Stop date: 06/26/14 3:59:00Notes: (Same as: Pepcid) Can be dilute in 5-10cc NS IVP: Slow IV push over at least 2 minutes. No Longer Active 05/27/2014 [facility] Terbutaline 0.25 mg, 0.25 mL, Route: SUB-Q, Drug form: INJ, PRN, Dosing Weight 120.909, kg, PRN Other -See Comment, Start date: 05/27/14 3:45:00, Duration: 1 doses or times, Stop date: Limited # of timesNotes: DO NOT USE IN [employer] AREA (Same As: Brethine) No Longer Active 05/27/2014 [facility] Lidocaine Hydrochloride 10 MG/ML Injectable Solution 20 mL, Route: PERCUT, Drug Form: INJ, Dosing Weight 120.909, kg, PRN, PRN Other - See Comment, Start date: 05/27/14 3:45:00, Duration: 1 doses or times, Stop date: Limited # of timesNotes: (Same as: Xylocaine) No Longer Active 05/27/2014 [facility] Ondansetron 4 mg, 2 mL, Route: IVP, Drug form: INJ, Q8H, Dosing Weight 120.909, kg, PRN Nausea & Vomiting, Start date: 05/27/14 3:45:00, Duration: 30 day, Stop date: 06/26/14 3:44:00Notes: (Same as: Zofran) No Longer Active 05/27/2014 [facility] Butorphanol 2 mg, 1 mL, Route: IVP, Drug form: INJ, Q2H, Dosing Weight 120.909, kg, PRN Pain Score 6-10, Start date: 05/27/14 3:45:00, Duration: 30 day, Stop date: 06/26/14 3:44:00Notes: (Same As: Stadol) No Longer Active 05/27/2014 [facility] Calcium Chloride 0.0014 MEQ/ML / Potassium Chloride 0.004 MEQ/ML / Sodium Chloride 0.103 MEQ/ML / Sodium Lactate 0.028 MEQ/ML Injectable Solution 1,000 mL, 1,000 ml/hr, Infuse Over: 1 hr, Route: IV, 1,000, Drug form: INJ, ONCE, Dosing Weight 120.909 kg, Start date: 05/27/14 3:45:00, Stop date: 05/27/14 3:45:00, Bolus for regional anesthesia per unit protocol No Longer Active 05/27/2014 [facility] Oxytocin 0.03 UNT/ML Injectable Solution 30 unit, 500 mL, Rate: 42 ml/hr, Infuse over: 11.9 hr, Dosing Weight 120.909, kg, Route: IV, Total Volume: 500 mL, Start date: 05/27/14 3:45:00, Duration: 2 day, Stop date: 05/29/14 3:44:00, Replace Every: 11.9 hrNotes: (Same as: [id number]) No Longer Active 05/27/2014 [facility] Lactated Ringers IV 1,000 mL 1,000 mL, Rate: 125 ml/hr, Infuse over: 8 hr, Route: IV, Dosing Weight 120.909 kg, Total Volume: 1,000, Start date: 05/27/14 3:45:00, Duration: 30 day, Stop date: 06/26/14 3:44:00 No Longer Active 05/27/2014 [facility] Allergies, Adverse Reactions, Alerts Substance Category Reaction Severity Reaction type Status Date Reported Comments Source N.K.D.A. Adverse Reaction Info Not Available Adverse Reaction Active 08/03/2018 [facility] Immunizations Immunization Date Given Site Status Last Updated Comments Source Results Order Name Results Value Reference Range Date Interpretation Comments Source GLUCOSE TOLR Gluc 2 Hr 122 mg/dL 07/08/2014 [facility] GLUCOSE TOLR Gluc 1 Hr 194 mg/dL 07/08/2014 [facility] GLUCOSE TOLR Gluc Fasting 101 mg/dL 70 - 99 07/08/2014 [facility] HEMATOLOGY Hct 29.5 % 36.0 - 48.0 06/21/2014 [facility] HEMATOLOGY Hgb 9.9 g/dL 12.0 - 16.0 06/21/2014 [facility] BLOOD BANK RESULTS ABO/Rh O POS 06/21/2014 [facility] BLOOD BANK RESULTS Antibody Scrn Negative (06/20/14 7:23 PM) 06/21/2014 [facility] HEMATOLOGY MPV 8.1 fL 7.4 - 10.4 06/21/2014 [facility] HEMATOLOGY Platelet 342 K/CMM 133 - 450 06/21/2014 [facility] HEMATOLOGY Hgb 12.0 g/dL 12.0 - 16.0 06/21/2014 [facility] HEMATOLOGY WBC 8.7 K/CMM 3.7 - 10.4 06/21/2014 [facility] HEMATOLOGY RBC 4.04 M/CMM 4.20 - 5.40 06/21/2014 [facility] HEMATOLOGY Hct 35.7 % 36.0 - 48.0 06/21/2014 [facility] HEMATOLOGY MCV 88.5 fL 80.0 - 98.0 06/21/2014 [facility] HEMATOLOGY MCHC 33.5 g/dL 32.0 - 36.0 06/21/2014 [facility] HEMATOLOGY RDW 15.5 % 11.5 - 14.5 06/21/2014 [facility] HEMATOLOGY MCH 29.7 pg 27.0 - 31.0 06/21/2014 [facility] HEMATOLOGY Segs 63.1 % 45.0 - 75.0 06/21/2014 [facility] HEMATOLOGY Lymphocytes 29.8 % 20.0 - 40.0 06/21/2014 [facility] HEMATOLOGY Monocytes 4.9 % 2.0 - 12.0 06/21/2014 [facility] HEMATOLOGY Eosinophils 1.4 % 0.0 - 4.0 06/21/2014 [facility] HEMATOLOGY Basophils 0.8 % 0.0 - 1.0 06/21/2014 [facility] HEMATOLOGY Monocytes # 0.4 K/CMM 0.0 - 0.8 06/21/2014 [facility] HEMATOLOGY Lymphocytes # 2.6 K/CMM 1.0 - 5.5 06/21/2014 [facility] HEMATOLOGY Segs-Bands # 5.5 K/CMM 1.5 - 8.1 06/21/2014 [facility] HEMATOLOGY Basophils # 0.1 K/CMM 0.0 - 0.2 06/21/2014 [facility] HEMATOLOGY Eosinophils # 0.1 K/CMM 0.0 - 0.5 06/21/2014 [facility] IMMUNOLOGY Treponemal Scr Non Reactive *NA* (06/20/14 7:23 PM) Non Reactive 06/21/2014 [facility] IMMUNOLOGY Hep Bs Ag Negative *NA* (06/20/14 7:23 PM) Negative 06/21/2014 [facility] HEMATOLOGY Hct 26.9 % 36.0 - 48.0 05/30/2014 [facility] HEMATOLOGY Hgb 9.4 g/dL 12.0 - 16.0 05/30/2014 [facility] HEMATOLOGY Eosinophils # 0.1 K/CMM 0.0 - 0.5 05/27/2014 [facility] HEMATOLOGY Lymphocytes # 2.6 K/CMM 1.0 - 5.5 05/27/2014 [facility] HEMATOLOGY Monocytes # 0.5 K/CMM 0.0 - 0.8 05/27/2014 [facility] HEMATOLOGY Basophils 0.5 % 0.0 - 1.0 05/27/2014 [facility] HEMATOLOGY Eosinophils 1.1 % 0.0 - 4.0 05/27/2014 [facility] HEMATOLOGY Segs-Bands # 4.7 K/CMM 1.5 - 8.1 05/27/2014 [facility] HEMATOLOGY Lymphocytes 33.2 % 20.0 - 40.0 05/27/2014 [facility] HEMATOLOGY Monocytes 6.2 % 2.0 - 12.0 05/27/2014 [facility] HEMATOLOGY Segs 59.0 % 45.0 - 75.0 05/27/2014 [facility] HEMATOLOGY MPV 8.7 fL 7.4 - 10.4 05/27/2014 [facility] HEMATOLOGY Platelet 254 K/CMM 133 - 450 05/27/2014 [facility] HEMATOLOGY RDW 14.7 % 11.5 - 14.5 05/27/2014 [facility] HEMATOLOGY MCHC 33.4 g/dL 32.0 - 36.0 05/27/2014 [facility] HEMATOLOGY Hgb 11.7 g/dL 12.0 - 16.0 05/27/2014 [facility] HEMATOLOGY WBC 8.0 K/CMM 3.7 - 10.4 05/27/2014 [facility] HEMATOLOGY MCH 30.0 pg 27.0 - 31.0 05/27/2014 [facility] HEMATOLOGY Hct 34.9 % 36.0 - 48.0 05/27/2014 [facility] HEMATOLOGY MCV 89.7 fL 80.0 - 98.0 05/27/2014 [facility] HEMATOLOGY RBC 3.89 M/CMM 4.20 - 5.40 05/27/2014 [facility] IMMUNOLOGY Treponemal Scr Non Reactive *NA* (05/27/14 4:48 AM) Non Reactive 05/27/2014 [facility] IMMUNOLOGY Hep Bs Ag Negative *NA* (05/27/14 4:48 AM) Negative 05/27/2014 [facility] BLOOD BANK RESULTS ABO/Rh O POS 05/27/2014 [facility] BLOOD BANK RESULTS Antibody Scrn Negative (05/27/14 12:15 AM) 05/27/2014 [facility] Vital Signs Vital Sign Value Date Comments Source Weight 268 08/03/2018 [facility] Height 62 08/03/2018 [facility] Heart Rate 74 08/03/2018 [facility] Diastolic (mm Hg) 94 08/03/2018 [facility] Systolic (mm Hg) 146 08/03/2018 [facility] Height 62 07/10/2018 [facility] Diastolic (mm Hg) 69 06/21/2014 [facility] Systolic (mm Hg) 102 06/21/2014 [facility] Respitory Rate 20 06/21/2014 [facility] Heart Rate 80 06/21/2014 [facility] Temperature Oral (F) 98.1 F 06/21/2014 [facility] Systolic (mm Hg) 117 06/21/2014 [facility] Heart Rate 72 06/21/2014 [facility] Respitory Rate 20 06/21/2014 [facility] Diastolic (mm Hg) 75 06/21/2014 [facility] Systolic (mm Hg) 144 06/21/2014 [facility] Diastolic (mm Hg) 90 06/21/2014 [facility] Heart Rate 84 06/21/2014 [facility] Respitory Rate 19 06/21/2014 [facility] Temperature Oral (F) 97.1 F 06/21/2014 [facility] Temperature Oral (F) 98.4 F 06/21/2014 [facility] Weight 110 06/21/2014 [facility] BMI Calculated 44.35 06/21/2014 [facility] Height 157.48 cm 06/21/2014 [facility] Diastolic (mm Hg) 77 05/31/2014 [facility] Temperature Oral (F) 97.9 F 05/31/2014 [facility] Systolic (mm Hg) 113 05/31/2014 [facility] Heart Rate 90 05/31/2014 [facility] Respitory Rate 18 05/31/2014 [facility] Diastolic (mm Hg) 75 05/30/2014 [facility] Systolic (mm Hg) 113 05/30/2014 [facility] Heart Rate 83 05/30/2014 [facility] Temperature Oral (F) 98.2 F 05/30/2014 [facility] Respitory Rate 18 05/30/2014 [facility] Diastolic (mm Hg) 70 05/30/2014 [facility] Respitory Rate 18 05/30/2014 [facility] Systolic (mm Hg) 104 05/30/2014 [facility] Temperature Oral (F) 97.4 F 05/30/2014 [facility] Heart Rate 79 05/30/2014 [facility] Height 157.48 cm 05/27/2014 [facility] BMI Calculated 48.75 05/27/2014 [facility] Weight 120.909 05/27/2014 [facility] BMI Calculated 48.02 04/22/2014 [facility] Weight 119.091 04/22/2014 [facility] Height 157.48 cm 04/22/2014 [facility] Encounters Location Location Details Encounter Type Encounter Number Reason For Visit Attending Provider ADM Date DC Date Status Source [facility] Outpatient [id number] Vira Martinez 04/22/2014 04/23/2014 [facility] Inpatient [id number] Vira Martinez 05/27/2014 05/31/2014 [facility] OBS Observation Patient [id number] Vira Martinez 06/21/2014 06/21/2014 [facility] Outpatient [id number] Vira Martinez 07/08/2014 07/09/2014 [facility] Procedures Procedure Code Date Perfomer Comments Source
== END | disposition home or self-care (01) ==
LOC: OR 10:31
PROVIDERS: ATTEND Internal Medicine Gastroenterology
DX: K25.9 Gastric ulcer, unspecified as acute or chronic, without hemorrhage or perforation (principal); K29.50 Unspecified chronic gastritis without bleeding; K63.5 Polyp of colon; K62.1 Rectal polyp; K29.80 Duodenitis without bleeding; K57.30 Diverticulosis of large intestine without perforation or abscess without bleeding; B96.81 Helicobacter pylori [H. pylori] as the cause of diseases classified elsewhere; Z71.3 Dietary counseling and surveillance; I10 Essential (primary) hypertension; M06.9 Rheumatoid arthritis, unspecified; E66.01 Morbid (severe) obesity due to excess calories; Z68.42 Body mass index [BMI] 45.0-49.9, adult; Z87.891 Personal history of nicotine dependence
CPT/HCPCS: 43239; 45380; 45385; 81025; J2001; J2250; J2704

== ENCOUNTER 2019-11-19 21:03 | Emergency (ER) | payer BC ==
[~2019-11-19] VITALS: Ht 157.5 cm; Wt 120.2 kg
[~2019-11-19 21:03] MED LIST changes: -FENTANYL CITRATE/PF 100MCG/2 ML INJ ONE; -LIDOCAINE HCL 2% LOCAL INJ 5 ML SDV VIAL INJ ONE; -MIDAZOLAM HCL 2 MG/2 ML VIAL ONE; -PROPOFOL IV EMULSION 10 MG/ML 20 ML VIAL ONE
--- OUTSIDE RECORDS SUMMARY | 2019-11-19 21:06 | XMS REPORT | Continuity of Care Document ---
Author Author [employer] Organization [employer] Address Unknown Phone Unavailable Care Team Providers Care Dental Service Technician Name Role Phone [email or web address] Unavailable Un available Problems Problem Status Onset Date Classification Date Reported Comments Source Patient currently (finding) Resolved 05/26/2014 Problem 07/10/2014 [facility] PRE ADMIT Active 05/07/2014 [facility] INDUCTION Active 05/07/2014 [facility] V23.9 / 009.90 Active 04/19/2014 [facility] Hypertensive disorder, systemic arterial (disorder) Resolved 12/14/2013 Problem 07/10/2014 [facility] DNC Active 0 06/16/2013 [facility] Structure of carpal canal (body structure) Resolved 06/16/2001 Problem 07/10/2014 [facility] Depression Active Problem 05/18/2019 [facility] Left knee pain Active Problem 05/18/2019 [facility] Hypertension Active Problem 05/18/2019 [facility] Rheumatoid arthritis Active Problem 05/18/2019 [facility] BMI 45.0-49.9, adult Active Problem 05/18/2019 [facility] Dizziness Active Diagnosis 08/04/2018 [facility] Abnormal urinalysis Active Diagnosis 08/04/2018 [facility] 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 pylori) Active Diagnosis 1 07/05/2018 [facility] PROLONGED PREG-UNSP Active [facility] ADMINISTRTVE ENCOUNT NOS Active [facility] V23.9 Active [facility] Medication Details Route Status Patient Instructions Ordering Provider Order Date Source Amoxicillin 2 tablets Orally Active 500 mg Orally Twice a d ay [facility] 04/26/2019 [facility] Omeprazole 1 tablet Orally Active 20 mg Orally twice a da y (bid) [facility] 04/26/2019 [facility] Clarithromycin 1 tablet Orally Active 500 mg Orally twice a d ay (bid) [facility] 04/26/2019 [facility] Omeclamox-Jeff as directed on p ack by mouth Active 20/500/500 by mouth daily [facility] 04/21/2019 [facility] Ondansetron 1 tablet on the to ngue and allow to dissolve as needed Orally Active 4 mg Orally every 4 hrs [facility] 10/30/2018 [facility] Bromfed DM 10 ml as needed Orally Active 30-2-10 MG/5ML Orally every 4 hrs [facility] 10/30/2018 [facility] Meclizine HCl 1 tablet as need ed Orally Active 25 MG Orally Once a day [facility] 10/29/2018 [facility] Isoniazid 1 tablet Orally Active 300 MG Orally Once a da y [facility] 09/23/2018 [facility] Pyridoxine HCl 1 tablet Orally Active 50 mg Orally Once a day [facility] 09/23/2018 [facility] Lisinopril 1 tablet Orally Active 10 mg Orally Once a day [facility] 07/03/2018 [facility] Methotrexate as directed Orally Active 2.5 MG Orally 10 pills a week [facility] 07/03/2018 [facility] Folic Acid 1 tablet Orally Active 1 MG Orally Once a day [facility] 07/03/2018 [facility] Wellbutrin XL 1 tablet in the morning Orally Active 150 MG Orally Once a day [facility] 07/03/2018 [facility] Humira 0.8 ml Subcutaneous Active 40 MG/0.8ML Subcutaneou s [facility] 07/03/2018 [facility] ferrous sulfate Notes: Give wi th food. "Do Not Crush" Inactive 06/21/2014 [facility] Atropine Sulfate 0.025 MG / Diphenoxylat e Hydrochloride 2.5 MG Oral Tablet [Lomotil] Notes: (Same As: Lomotil) MAX Adult dose = 8 tabs/day Inactive 06/21/2014 [facility] Multivitamins oral tablet 1 tab, Route: PO, Drug Form: TAB, Dosing Weight 110, kg, Daily, Start date: 06/21/14 9:00:00, Duration: 30 day, Stop date: 07/20/14 9:00:00 Inactive 06/21/2014 [facility] nter Methyldopa 250 MG Oral Tablet Notes: May interfere w/enteral feedings. (Same as:Aldomet) Inactive 06/21/2014 [facility] nter Acetaminophen 300 MG / Codeine Phosphate 30 MG Oral Tablet [Tylenol with Codeine #3] 1 tab, PO, Q4H, for pain, # 30 tab, 0 Re fill(s) On Hold 06/21/2014 [facility] Docusate Sodium 100 MG Oral Capsule [Colace] 100 mg = 1 cap, PO, BID, Constipation, # 20 cap, 0 Refill(s) On Hold 06/21/2014 [facility] nter Doxycycline Notes: NO MILK/ANT ACIDS/IRON Take 1 hour before or 2 hours after dairy products Inactive 06/21/2014 [facility] nter benzocaine-menthol topical Not es: Cepacol lozenges Dispense 1 box = 16 lozenges (Same As: Cepacol Lozenges) Inactive 06/21/2014 [facility] Cepacol Lozenge 1 lozenge, Rou te: MUCOUS MEM, Q4H, Drug form: DENTON, PRN Sore Throat, Start date: 06/21/14 0:01:00, Duration: 30 day, Stop date: 07/21/14 0:00:00 Inactive 06/21/2014 [facility] nter Atropine Sulfate 0.025 MG / Diphenoxylat e Hydrochloride 2.5 MG Oral Tablet [Lomotil] Notes: (Same As: Lomotil) MAX Adult dose = 8 tabs/day Inactive 06/21/2014 [facility] Doxycycline Notes: (Same as: V ibramycin) Inactive 06/21/2014 [facility] M-M-R II Notes: (Same as: M-M- R II) (sofixiv-jtmeu-hikzdtw virus vaccine 0.5 ml INJ VL) GIVE PRIOR TO DISCHARGE No Longer Active 06/21/2014 [facility] Famotidine Notes: (Same as: Pe pcid) Can be dilute in 5- 10cc NS IVP: Slow IV push over at least 2 minutes. No Longer Active 06/21/2014 [facility] Misoprostol Notes: (Same as:Cy totec) Take with food Inactive 06/21/2014 [facility] Methylergonovine Notes: (Same as:Methergine) No Longer Active 06/21/2014 [facility] Citric Acid / sodium citrate N otes: (Same As: Bicitra, Cytra-2) Sodium citrate-citric acid (500-334 mg/5 mL): 1 mL contains sodium 1 mEq/mL and bicarbonate 1 mEq/mL No Longer Active 06/21/2014 [facility] nter Carboprost Notes: (Same As: He mabate) No Longer Active 06/21/2014 [facility] Acetaminophen 325 MG / Hydrocodone Catalino trate 5 MG Oral Tablet Notes: (Same as: [place] 325/5) Do not ex ceed 4gm/day of acetaminophen. No Longer Active 06/21/2014 [facility] Acetaminophen 325 MG / Hydrocodone Catalino trate 10 MG Oral Tablet Notes: Do not exceed 4gm/day of acetamin ophen. (Same as: [place] 325/10) No Longer Active 06/21/2014 [facility] Acetaminophen Notes: Do not ex ceed 4 gm/day. (Same as: Tylenol) No Longer Active 06/21/2014 [facility] Ibuprofen Notes: (Same as: Mot rin) "Do Not Crush" Take with food. No Longer Active 06/21/2014 [facility] Oxytocin 0.03 UNT/ML Injectable Solution Notes: (Same as: OXYTOCIN-D5LR) No Longer Active 06/21/2014 [facility] nter Lactated Ringers IV 1,000 mL 1 ,000 mL, Rate: 100 ml/hr, Infuse over: 10 hr, Route: IV, Dosing Weight 110 kg, Total Volume: 1,000, Start date: 06/20/14 18:53:00, Duration: 30 day, Stop date: 07/20/14 18:52:00 No Longer Active 06/21/2014 [facility] Ondansetron Notes: (Same as: Bright green) No Longer Active 06/21/2014 [facility] Bisacodyl Notes: (Same As: Dul colax, Bisco-Lax) No Longer Active 06/21/2014 [facility] lanolin topical 1 appl, Route: TOP, PRN, Drug form: OINT, PRN Other -See Comment, Start date: 06/20/14 18:53:00, Duration: 30 day, Stop date: 07/20/14 18:52:00 N o Longer Active 06/21/2014 [facility] Methylergonovine Notes: (Same as:Methergine) No Longer Active 06/21/2014 [facility] zolpidem Notes: (Same As: Ambi en) No Longer Active 06/21/2014 [facility] Benzocaine 200 MG/ML Topical K[place]aid [Dermoplast] Notes: (Same As: Dermoplast) FOR EXTERNAL USE ONLY No Longer Active 06/21/2014 [facility] Docusate Notes: (Same as: Cola ce) (Do Not Crush) No Longer Active 06/21/2014 [facility] Ondansetron Notes: (Same as: Bright green) No Longer Active 06/21/2014 [facility] Lidocaine Hydrochloride 10 MG/ML Injectable Solution Notes: (Same as: Xylocaine) No Longer Active 06/21/2014 [facility] nter Terbutaline Notes: DO NOT US E IN INSPECTOR TESTER SORTER AREA (Same As: Brethine) No Longer Active 06/21/2014 [facility] Butorphanol Notes: (Same As: S tadol) No Longer Active 06/21/2014 [facility] Oxytocin 0.03 UNT/ML Injectable Solution Notes: (Same as: OXYTOCIN-D5LR) Inactive 06/21/2014 [facility] Lactated Ringers IV 1,000 mL 1 ,000 mL, Rate: 125 ml/hr, Infuse over: 8 hr, Route: IV, Dosing Weight 110 kg, Total Volume: 1,000, Start date: 06/20/14 18:52:00, Duration: 30 day, Stop date: 07/20/14 18:51:00 Inactive 06/21/2014 [facility] Calcium Chloride 0.0014 MEQ/ML / Potassi um Chloride 0.004 MEQ/ML / Sodium Chloride 0.103 MEQ/ML / Sodium Lactate 0.028 MEQ/ML Injectable Solution 1,000 mL, 1,000 ml/hr, Infuse Over: 1 hr , Route: IV, 1,000, Drug form: INJ, ONCE, Dosing Weight 110 kg, Start date: 06/20/14 18:52:00, Stop date: 06/20/14 18:52:00, Bolus for regional anesthesia per unit protocol Inactive 06/21/2014 [facility] ferrous sulfate 325 mg oral enteric coated tablet 325 mg = 1 tab, PO, BID, # 60 tab, 0 Refill(s) Active 05/31/2014 [facility] nter Docusate Sodium 100 MG Oral Capsule [Colace] 100 mg = 1 cap, PO, BID, # 60 cap, 0 Refill(s) Active 05/31/2014 [facility] nter ibuprofen 600 mg oral tablet S pecial Instructions: Take with food Active 05/31/2014 [facility] Acetaminophen 300 MG / Codeine Phosphate 30 MG Oral Tablet [Tylenol with Codeine #3] 1 tab, PO, Q6H, for pain, # 30 tab, 0 Re fill(s) Active 05/31/2014 [facility] Acetaminophen 300 MG / Codeine Phosphate 30 MG Oral Tablet [Tylenol with Codeine #3] Notes: Do not exceed 4gm/day of acetamin ophen. (Same as: Tylenol with Codeine # 3) No Longer Active 05/30/2014 [facility] Multivitamins oral tablet 1 tab, Route: PO, Drug Form: TAB, Dosing Weight 120.909, kg, Daily, Start date: 05/30/14 9:00:00, Duration: 30 day, Stop date: 06/28/14 9:00:00 No Longer Active 05/30/2014 [facility] Naloxone Notes: Same as Narcan No Longer Active 05/30/2014 [facility] Ondansetron Notes: (Same as: Bright green) No Longer Active 05/30/2014 [facility] Ketorolac 4 days No Longer Active 05/30/2014 [facility] nter tramadol hydrochloride 50 MG Oral Tablet Notes: Not to exceed 400mg/day. (Same As: Ultram) No Longer Active 05/30/2014 [facility] nter M-M-R II Notes: (Same as: M-M- R II) (eijdpvf-slabs-ligrzmp virus vaccine 0.5 ml INJ VL) GIVE PRIOR TO DISCHARGE No Longer Active 05/29/2014 [facility] Acetaminophen 325 MG / Hydrocodone Catalino trate 10 MG Oral Tablet Notes: Do not exceed 4gm/day of acetamin ophen. (Same as: [place] 325/10) Inactive 05/29/2014 [facility] Acetaminophen Notes: Do not ex ceed 4 gm/day. (Same as: Tylenol) No Longer Active 05/29/2014 [facility] Ibuprofen Notes: (Same as: Mot rin) "Do Not Crush" Take with food. No Longer Active 05/29/2014 [facility] Acetaminophen 325 MG / Hydrocodone Catalino trate 5 MG Oral Tablet Notes: (Same as: [place] 325/5) Do not ex ceed 4gm/day of acetaminophen. Inactive 05/29/2014 [facility] Methylergonovine Notes: (Same as:Methergine) No Longer Active 05/29/2014 [facility] zolpidem Notes: (Same As: Ambi en) No Longer Active 05/29/2014 [facility] Benzocaine 200 MG/ML Topical [place] [Dermoplast] Notes: (Same As: Dermoplast) FOR EXTERNAL USE ONLY No Longer Active 05/29/2014 [facility] lanolin topical Notes: (Same a s:Lanolin) No Longer Active 05/29/2014 [facility] Bisacodyl Notes: (Same As: Dul colax, Correctol) (Do Not Crush) "Do Not Crush" No Longer Active 05/29/2014 [facility] nter Docusate Notes: (Same as: Cola ce) (Do Not Crush) No Longer Active 05/29/2014 [facility] Ondansetron Notes: (Same as: Bright green) No Longer Active 05/29/2014 [facility] Oxytocin 0.03 UNT/ML Injectable Solution Notes: (Same as: OXYTOCIN-D5LR) No Longer Active 05/29/2014 [facility] nter Lactated Ringers IV 1,000 mL 1 ,000 mL, Rate: 100 ml/hr, Infuse over: 10 hr, Route: IV, Dosing Weight 120.909 kg, Total Volume: 1,000, Start date: 05/29/14 16:12:00, Duration: 30 day, Stop date: 06/28/14 16:11:00 No Longer Active 05/29/2014 [facility] Oxytocin 0.03 UNT/ML Injectable Solution Notes: (Same as: OXYTOCIN-D5LR) No Longer Active 05/29/2014 [facility] nter D5LR 1,000 mL 1,000 mL, Rate: 125 ml/hr, Infuse over: 8 hr, Route: IV, Dosing Weight 120.909 kg, Total Volume: 1,000, Start date: 05/28/14 18:27:00, Duration: 30 day, Stop date: 06/27/14 18:26:00 No Longer Active 05/29/2014 [facility] Misoprostol Notes: (Same as:Cy totec) Take with food 25 microgram = 1/4 tab of 100 microgram. No Longer Active 05/28/2014 [facility] nt 1 oral capsule 0 Refi ll(s) No Longer Active 05/28/2014 [facility] Glyburide 0 Refill(s) No Longer Active 05/28/2014 [facility] Methyldopa 0 Refill(s) No Longer Active 05/28/2014 [facility] Cytotec 50 microgram, Route: P O, Drug form: TAB, ONCE, Dosing Weight 120.909, kg, Start date: 05/28/14 9:05:00, Stop date: 05/28/14 9:05:00 Inactive 05/28/2014 [facility] Remove - dinoprostone (Cervidil) insert Notes: Vaginal insert: to be removed 1 hour prior to oxytocin administration or 12 hours after insertion. Inactive 05/28/2014 [facility] Cervidil Notes: (Same as: Cerv jarrod) Inactive 05/28/2014 [facility] Oxytocin 0.03 UNT/ML Injectable Solution Notes: (Same as: OXYTOCIN-D5LR) No Longer Active 05/27/2014 [facility] nter Misoprostol Notes: (Same as:Cy totec) Take with food 25 microgram = 1/4 tab of 100 microgram. No Longer Active 05/27/2014 [facility] nter Tylenol Notes: Do not exceed 4 gm/day. (Same as: Tylenol) No Longer Active 05/27/2014 [facility] Dextrose 50% Syringe 12.5 gm, 25 mL, Route: IVP, Drug Form: INJ, Dosing Weight 120.909, kg, PRN, PRN Abnormal Lab Result, Start date: 05/27/14 4:28:00, Duration: 30 day, Stop date: 06/26/14 4:27:00 No Longer Active 05/27/2014 [facility] Regular Insulin, Human 100 UNT/ML Injectable Solution 60 units) Stable for 28 days at room temperature Expires in days from Date No Longer Active 05/27/2014 [facility] nter Carboprost Notes: (Same As: Kevin mabate) No Longer Active 05/27/2014 [facility] Misoprostol Notes: (Same as:Cy totec) Take with food No Longer Active 05/27/2014 [facility] Citric Acid / sodium citrate N otes: (Same As: Bicitra, Cytra-2) Sodium citrate-citric acid (500-334 mg/5 mL): 1 mL contains sodium 1 mEq/mL and bicarbonate 1 mEq/mL No Longer Active 05/27/2014 [facility] nter Methylergonovine Notes: (Same as:Methergine) No Longer Active 05/27/2014 [facility] Famotidine Notes: (Same as: Pe pcid) Can be dilute in 5- 10cc NS IVP: Slow IV push over at least 2 minutes. No Longer Active 05/27/2014 [facility] Terbutaline Notes: DO NOT US E IN INSPECTOR TE[employer] SORTER AREA (Same As: Brethine) No Longer Active 05/27/2014 [facility] Lidocaine Hydrochloride 10 MG/ML Injectable Solution Notes: (Same as: Xylocaine) No Longer Active 05/27/2014 [facility] nter Ondansetron Notes: (Same as: Z ofran) No Longer Active 05/27/2014 [facility] Butorphanol Notes: (Same As: S tadol) No Longer Active 05/27/2014 [facility] Calcium Chloride 0.0014 MEQ/ML / Potassi um Chloride 0.004 MEQ/ML / Sodium Chloride 0.103 MEQ/ML / Sodium Lactate 0.028 MEQ/ML Injectable Solution 1,000 mL, 1,000 ml/hr, Infuse Over: 1 hr , Route: IV, 1,000, Drug form: INJ, ONCE, Dosing Weight 120.909 kg, Start date: 05/27/14 3:45:00, Stop date: 05/27/14 3:45:00, Bolus for regional anesthesia per unit protocol No Longer Active 05/27/2014 [facility] Oxytocin 0.03 UNT/ML Injectable Solution Notes: (Same as: OXYTOCIN-D5LR) No Longer Active 05/27/2014 [facility] nter Lactated Ringers IV 1,000 mL 1 ,000 mL, Rate: 125 ml/hr, Infuse over: 8 hr, Route: IV, Dosing Weight 120.909 kg, Total Volume: 1,000, Start date: 05/27/14 3:45:00, Duration: 30 day, Stop date: 06/26/14 3:44:00 No Longer Active 05/27/2014 [facility] Allergies, Adverse Reactions, Alerts Substance Category Reaction Severity Reaction type Status Date Reported Comments Source N.K.D.A. Adverse Reaction Info Not Available Adverse Reaction 09/23/2018 [facility] Immunizations No Data Provided for This Section Results Order Name Results Value Reference Range Date Interpretation Comments Source GLUCOSE TOLR Gluc 2 Hr 122 07/08/2014 [facility] GLUCOSE TOLR Gluc 1 Hr 194 07/08/2014 [facility] GLUCOSE TOLR Gluc Fasting 101 70 - 99 07/08/2014 [facility] HEMATOLOGY Hct 29.5 36.0 - 48.0 06/21/2014 [facility] HEMATOLOGY Hgb 9.9 12.0 - 16.0 06/21/2014 [facility] BLOOD BANK RESULTS ABO/Rh O POS 06/21/2014 [facility] BLOOD BANK RESULTS Antibody Scrn Negative (06/20/14 7:23 PM) 06/21/2014 [facility] HEMATOLOGY MPV 8.1 7.4 - 10.4 06/21/2014 [facility] HEMATOLOGY Platelet 342 133 - 450 06/21/2014 [facility] HEMATOLOGY Hgb 12.0 12.0 - 16.0 06/21/2014 [facility] HEMATOLOGY WBC 8.7 3.7 - 10.4 06/21/2014 [facility] HEMATOLOGY RBC 4.04 4.20 - 5.40 06/21/2014 [facility] HEMATOLOGY Hct 35.7 36.0 - 48.0 06/21/2014 [facility] HEMATOLOGY MCV 88.5 80.0 - 98.0 06/21/2014 [facility] HEMATOLOGY MCHC 33.5 32.0 - 36.0 06/21/2014 [facility] HEMATOLOGY RDW 15.5 11.5 - 14.5 06/21/2014 [facility] HEMATOLOGY MCH 29.7 27.0 - 31.0 06/21/2014 [facility] HEMATOLOGY Segs 63.1 45.0 - 75.0 06/21/2014 [facility] HEMATOLOGY Lymphocytes 29.8 20.0 - 40.0 06/21/2014 [facility] HEMATOLOGY Monocytes 4.9 2.0 - 12.0 06/21/2014 [facility] HEMATOLOGY Eosinophils 1.4 0.0 - 4.0 06/21/2014 [facility] HEMATOLOGY Basophils 0.8 0.0 - 1.0 06/21/2014 [facility] HEMATOLOGY Monocytes # 0.4 0.0 - 0.8 06/21/2014 [facility] HEMATOLOGY Lymphocytes # 2.6 1.0 - 5.5 06/21/2014 [facility] HEMATOLOGY Segs-Bands # 5.5 1.5 - 8.1 06/21/2014 [facility] HEMATOLOGY Basophils # 0.1 0.0 - 0.2 06/21/2014 [facility] HEMATOLOGY Eosinophils # 0.1 0.0 - 0.5 06/21/2014 [facility] IMMUNOLOGY Treponemal Scr Non R eactive *NA* (06/20/14 7:23 PM) Non Reactive 06/21/2014 [facility] IMMUNOLOGY Hep Bs Ag Negat shade *NA* (06/20/14 7:23 PM) Negative 06/21/2014 [facility] HEMATOLOGY Hct 26.9 36.0 - 48.0 05/30/2014 [facility] HEMATOLOGY Hgb 9.4 12.0 - 16.0 05/30/2014 [facility] HEMATOLOGY Eosinophils # 0.1 0.0 - 0.5 05/27/2014 [facility] HEMATOLOGY Lymphocytes # 2.6 1.0 - 5.5 05/27/2014 [facility] HEMATOLOGY Monocytes # 0.5 0.0 - 0.8 05/27/2014 [facility] HEMATOLOGY Basophils 0.5 0.0 - 1.0 05/27/2014 [facility] HEMATOLOGY Eosinophils 1.1 0.0 - 4.0 05/27/2014 [facility] HEMATOLOGY Segs-Bands # 4.7 1.5 - 8.1 05/27/2014 [facility] HEMATOLOGY Lymphocytes 33.2 20.0 - 40.0 05/27/2014 [facility] HEMATOLOGY Monocytes 6.2 2.0 - 12.0 05/27/2014 [facility] HEMATOLOGY Segs 59.0 45.0 - 75.0 05/27/2014 [facility] HEMATOLOGY MPV 8.7 7.4 - 10.4 05/27/2014 [facility] HEMATOLOGY Platelet 254 133 - 450 05/27/2014 [facility] HEMATOLOGY RDW 14.7 11.5 - 14.5 05/27/2014 [facility] HEMATOLOGY MCHC 33.4 32.0 - 36.0 05/27/2014 [facility] HEMATOLOGY Hgb 11.7 12.0 - 16.0 05/27/2014 [facility] HEMATOLOGY WBC 8.0 3.7 - 10.4 05/27/2014 [facility] HEMATOLOGY MCH 30.0 27.0 - 31.0 05/27/2014 [facility] HEMATOLOGY Hct 34.9 36.0 - 48.0 05/27/2014 [facility] HEMATOLOGY MCV 89.7 80.0 - 98.0 05/27/2014 [facility] HEMATOLOGY RBC 3.89 4.20 - 5.40 05/27/2014 [facility] IMMUNOLOGY Treponemal Scr Non R eactive *NA* (05/27/14 4:48 AM) Non Reactive 05/27/2014 [facility] IMMUNOLOGY Hep Bs Ag Negat shade *NA* (05/27/14 4:48 AM) Negative 05/27/2014 [facility] BLOOD BANK RESULTS ABO/Rh O POS 05/27/2014 [facility] BLOOD BANK RESULTS Antibody Scrn Negative (05/27/14 12:15 AM) 05/27/2014 [facility] Pathology Reports No Data Provided for This Section Diagnostic Reports No Data Provided for This Section Consultation Notes No Data Provided for This Section Discharge Summaries No Data Provided for This Section History and Physicals No Data Provided for This Section Vital Signs Vital Sign Value Date Comments Source Weight 267 10/29/2018 [facility] Height 62 0 10/29/2018 [facility] Temperature Oral (F) 98.1 F 10/29/2018 [facility] Heart Rate 98 10/29/2018 [facility] Diastolic (mm Hg) 78 10/29/2018 [facility] Systolic (mm Hg) 124 10/29/2018 [facility] Weight 267 09/23/2018 [facility] Height 62 0 09/23/2018 [facility] Heart Rate 80 09/23/2018 [facility] Diastolic (mm Hg) 64 09/23/2018 [facility] Systolic (mm Hg) 122 09/23/2018 [facility] Weight 268 08/03/2018 [facility] Height 62 0 08/03/2018 [facility] Heart Rate 74 08/03/2018 [facility] Diastolic (mm Hg) 94 08/03/2018 [facility] Systolic (mm Hg) 146 08/03/2018 [facility] Height 62 0 07/10/2018 [facility] Diastolic (mm Hg) 69 06/21/2014 [facility] Systolic (mm Hg) 102 06/21/2014 [facility] Respitory Rate 20 06/21/2014 [facility] Heart Rate 80 06/21/2014 [facility] Temperature Oral (F) 98.1 F 06/21/2014 [facility] Systolic (mm Hg) 117 06/21/2014 [facility] Heart Rate 72 06/21/2014 [facility] Respitory Rate 20 06/21/2014 [facility] Diastolic (mm Hg) 75 06/21/2014 [facility] Systolic (mm Hg) 144 06/21/2014 [facility] Diastolic (mm Hg) 90 06/21/2014 [facility] Heart Rate 84 06/21/2014 [facility] Respitory Rate 19 06/21/2014 [facility] Temperature Oral (F) 97.1 F 06/21/2014 [facility] Temperature Oral (F) 98.4 F 06/21/2014 [facility] Weight 110 06/21/2014 [facility] BMI Calculated 44.35 06/21/2014 [facility] Height 157.48 cm 06/21/2014 [facility] Diastolic (mm Hg) 77 05/31/2014 [facility] Temperature Oral (F) 97.9 F 05/31/2014 [facility] Systolic (mm Hg) 113 05/31/2014 [facility] Heart Rate 90 05/31/2014 [facility] Respitory Rate 18 05/31/2014 [facility] Diastolic (mm Hg) 75 05/30/2014 [facility] Systolic (mm Hg) 113 05/30/2014 [facility] Heart Rate 83 05/30/2014 [facility] Temperature Oral (F) 98.2 F 05/30/2014 [facility] Respitory Rate 18 05/30/2014 [facility] Diastolic (mm Hg) 70 05/30/2014 [facility] Respitory Rate 18 05/30/2014 [facility] Systolic (mm Hg) 104 05/30/2014 [facility] Temperature Oral (F) 97.4 F 05/30/2014 [facility] Heart Rate 79 05/30/2014 [facility] Height 157.48 cm 05/27/2014 [facility] BMI Calculated 48.75 05/27/2014 [facility] Weight 120.909 05/27/2014 [facility] BMI Calculated 48.02 04/22/2014 [facility] Weight 119.091 04/22/2014 [facility] Height 157.48 cm 04/22/2014 [facility] Encounters Location Location Details Encounter Type Encounter Number Reason For Visit Attending Provider ADM Date DC Date Status Source [facility] Outpatient [id number] Vira Martinez 04/22/2014 04/23/2014 [facility] Inpatient [id number] Vira Martinez 05/27/2014 05/31/2014 [facility] OBS Observation Patient [id number] Vira Martinez 06/21/2014 06/21/2014 [facility] Outpatient [id number] Vira Martinez 07/08/2014 07/09/2014 [facility] Procedures No Data Provided for This Section Assessment and Plan Assessment and Plan Date Source Extracted from:Title: OB Prog ress Note Author: Shelly Castañeda MD Date: 06/21/14 Impression and Plan A/P: 39yo [...] CHTN - on Methyldopa 250mg TID, BPs n ml range. Extracted from:Title: Clinical Document Author: Judith Jurado MD Date: [...] O+/-, RI, GBS neg, 3T HIV neg, RP R NR, HBsAg neg - Bottle feeding. - S/p BTL. - A2GDM - Was on glyburide 1.5mg in AM and 5mg in PM during pregnacy. Not on it anymore. - CHTN - on methyldopa 250mg TID - osteoarthritis of left knee, s/p 2 cor tisol injections this OB Hx: 1994 - TSVD, female, 7ob23pd 1998 - TSVD, female, 8lb9oz 2001 - TSVD, female, 7zzh4sz 2013- TSVD female, 7#9oz [employer]QUIPMENT MECH[employer]IC Hx: 13/R/3d. Denies h/o abnormal pap smears or STDS. PMH: cHTN, osteoarthritis. PSH: denies Meds: Methyldopa, Fe, Colace, ibuprofen PRN. All: NKDA Fam Hx: DM, HTN, HLD, heart disease Soc Hx: denies tobacco, etoh or drug use Health Status Allergies: (Active and Proposed Allergies Only) NKDA (Severity: Unknown severity, Onset: Unknown) Current medications: Home Medications (4) Active Colace 100 mg oral capsule 100 mg = 1 cap, PO, BID ferrous sulfate 325 mg oral enteric coated tablet 325 mg = 1 tab, PO, BID ibuprofen 600 mg oral tablet 600 mg = 1 tab, PRN, PO, Q6H Tylenol with Codeine #3 oral tablet 1 tab, PRN, PO, Q6H , Medications (0) Active Scheduled Meds: None Unscheduled Meds: None PRN Meds: None One Time Meds: None Continuous Infusions: None Problem list: No problems recorded Physical Examination VS/Measurements Inpatient Vital signs (ST) Vitals Tmp(F) Pulse BP RR SpO2 FIO2 06/20 18:10 97.1 68 128/89 1 8 --- --- 24 Hr Tmax: 97.1F (36.17c) at 06/20 18:1 0 Vital Signs are the last 5 in the past 48 hours. PE: Gen: NAD, pale CV: RRR Resp: CTAB Abd: soft/NT/gravid SSE: defer to OR SVE: cervix ft. uterus approx 15 weeks size. Histories History ,40,0,4 # 1 Baby 1 Outcome Date: 1994 Outcome: Live Outcome or Result: Vaginal Gender: -- Gest Age: 40 weeks Wt: -- Hospital: -- [facility] Labor: -- Child's Name: -- Baby's Father: -- # 2 Baby 1 Outcome Date: 1998 Outcome: Live Outcome or Result: Vaginal Gender: -- Gest Age: 40 weeks Wt: -- Hospital: -- [facility] Labor: -- Child's Name: -- Baby's Father: -- # 3 Baby 1 Outcome Date: 2001 Outcome: Live Outcome or Result: Vaginal Gender: -- Gest Age: 40 weeks Wt: -- Hospital: -- [facility] Labor: -- Child's Name: -- Baby's Father: -- # 4 Baby 1 Outcome Date: 05/29/2014 Outcome: Live Outcome or Result: Vaginal Gender: Female Gest Age: 38 weeks Wt: 3575 g Hospital: -- [facility] Labor: 8 hr 39 min Child's Name: -- Baby's Father: -- Complications: None Past Medical History: Resolved ([id number]): Onset on 05/26/2014 at 39 years. Resolved on 05/29/2014 at 39 years. Hypertension ([id number]): Onset on 12/14/2013 at 38 years. Resolved. Carpal tunnel ([id number]): Onset on 06/16/2001 at 26 years. Resolved. ([id number]): Onset on 09/09/2000 at 25 years. Resolved in 2001 at 26 years. ([id number]): Onset on 09/09/1997 at 22 years. Resolved in 1998 at 23 years. ([id number]): Onset on 09/09/1993 at 18 years. Resolved [...] Retained POC: EMS 2.9 cm. Pt with v aginal bleeding. Will proceed with US guided D&C. Patient informed of risks of procedure such as bleeding to anemia, need of transfusion, need of hysterectomy or/and oophorectomy, risk of infection, or damage to surrounding structures including bowel or bladder, and risk of uteine perforation requiring possible laparoscopy vs laparotomy. Pt voices understanding and wishes to proceed. 2. Hgb: 11.7 -> 500ml. Reports s/sx of a nemia. Will get T&S along with CBC 3. Rh +, Rubella immune, Bottle feeding. 4. CHTN - on Methyldopa 250mg TID, BPs n ml range. 5. A2GDM - not currntly on meds Thomas Piña MD PGY-3 Signature Line Wilma Piña MD Electronically Signed: 06/20/14 19:47 06/21/2014 [facility] Extracted from:Title: OB Prog ress Note Author: Cherelle Jamil PA-C Date: 05/31/14 Impression and Plan A/P: 39yo s/p TSVD and post BTL 1. PPD# 2, POD #2 - AFVSS, Pain controll ed. 2. Heme: 11.7 --> 500cc --> 9.4. No s/sx of anemia. Will d/c home on iron and colace 3. CHTN - Stable off meds. BPs in the nl range 4. Br /BCM - PP BTL 5. A2GDM - Good control off glyburide. W ill follow up post . 6. Rh+ / RI 7. Dispo: D/C home today. Will follow up with Dr Refuerzo in 2 weeks. Cherelle Jamil PA-C Extracted from:Title: OB H&P Author: Aleisha Gupta DO Date: 05/26/14 Impression and Plan 39yo at 37w5d by LMP c/w doc 13w k US presents for IOL 2/2 A2GDM and cHTN. 1. FHTs Category I 2. IOL - Cervix unfavorable, Cytotec 25m cg PV placed now. 3. GBS neg and 3T HIV neg 4. cHTN - nml range BPs here. Continue m ethyldopa 250mg TID. Reports mild headache, will give tylenol now. Continue to monitor closely. 5. A2GDM - Written for SSI now and q2hr accuchecks, first accucheck of 158. Will start insulin drip if necessary in active labor. 6. Pain - wants epidural 7. Cephalic, 4000g 8. MPDPS - private insurance Aleisha Gupta DO PGY1 05/31/2014 [facility] Plan of Care No Data Provided for This Section Social History Social History Date Source Social History TypeResponse Smoking Status Never smoker, Exposure to Tobacco Smoke None, Cigarette Smoking Last 365 Days No, Reg Smoking Cessation Counseling No 06/21/2014 [facility] Social History TypeResponse Smoking Status Never smoker, Exposure to Tobacco Smoke None, Cigarette Smoking Last 365 Days No, Reg Smoking Cessation Counseling No 06/21/2014 [facility] Family History No Data Provided for This Section Advance Directives No Data Provided for This Section Functional Status No Data Provided for This Section
--- OUTSIDE RECORDS SUMMARY | 2019-11-19 21:07 | XMS REPORT ---
Author Author Eleonora Willis Organization [employer] Address Unknown Phone Unavailable Care Team Providers Care Securities Compliance Examiner Name Role Phone Kemi Willis CP Unavailable Allergies No Known Allergies Problems Problem Type Condition Code Onset Dates Condition Statu s Problem Rheumatoid arthritis M06.9 Active Problem Hypertension I10 Active Problem BMI 45.0-49.9, adult Z68.42 Active Assessment Acute URI J06.9 Active Problem Depression F32.9 Active Problem Left knee pain M25.562 Active Medications Medication Code System Code Instructions Start Date End Date Status Dosage Bromfed DM [facility] [id number] 30-2-10 MG/5ML Orally every 4 hrs M ay 2018November 02, 2018 Active 10 ml as needed Results No Known Results Summary Purpose [employer] Submission
--- OUTSIDE RECORDS SUMMARY | 2019-11-19 21:07 | XMS REPORT | Summary of Care ---
Author Author [facility] - Health Organization [facility] - Health Address Unknown Phone Unavailable Care Team Providers Care Vice President Of Sales Name Role Phone Alice Mcmahon MD PCP Reason for Visit * Reason Comments WHEEZING Sore Throat Encounter Details Care Team Description Date Type Department Alice Mcmahon MD [address] [place] [phone] Bronchitis (Primary Dx); Acute sore throat 10/12/2019 Telemedicine [facility] Family Medicine Visit [address] [place] [phone] Allergies No Known Allergiesdocumented as of this encounter (statuses as of 10/12/2019) Medications End Date Status Medication Sig Dispensed Refills Start Date Active sarilumab (KEVZARA SC) inject under 0 the skin. Active dicyclomine 20 mg tablet Take 20 mg by 0 mouth 4 (four) times daily. Active acetaminophen with Take by 0 codeine (TYLENOL-CODEINE mouth. #3 ORAL) Active acetaminophen with Take by 0 codeine (TYLENOL-CODEINE mouth. #4 ORAL) Active DULoxetine (CYMBALTA) 30 Take 1 180 capsule 1 0 mg capsuleIndications: capsule by 0 Anxiety and depression mouth 2 (two) times daily. Active lansoprazole 30 mg Take 1 90 capsule 1 02 capsuleIndications: capsule by 0 Dyspepsia mouth daily. Active lisinopril 10 mg Take 1 tablet 90 tablet 1 02 tabletIndications: by mouth 0 Essential hypertension daily. 10/22/2019 Active levoFLOXacin 500 mg Take 1 tablet 10 tablet 0 09/15 tabletIndications: by mouth 0 Bronchitis, Acute sore every 24 throat (twenty-four) hours for 10 days. Active codeine-guaifenesin Take 5 mL by 240 mL 0 10/11 (CHERATUSSIN AC) 10-100 mouth every 6 0 mg/5 mL (six) hours solutionIndications: as needed for Bronchitis Cough. Active albuterol 90 Inhale 2 8.5 g 1 mcg/actuation Puffs every 6 0 inhalerIndications: (six) hours Bronchitis as needed for Wheezing or Shortness of Breath. documented as of this encounter (statuses as of 10/12/2019) Active Problems No known active problemsdocumented as of this encounter (statuses as of 10/12/2019) Immunizations Name Administration Dates Next Due Influenza Virus Vaccine 02/26/2019 Influenza Virus Vaccine 02/14/2019 Quad .5 mL IM 6+ MO TDAP (ADACEL) VACCINE 06/28/2014 documented as of this encounter Social History Date Tobacco Use Types Packs/Day Years Used Never Smoker Smokeless Tobacco: Never Used Drinks/Week oz/Week Comments Alcohol Use socially Yes Sex Assigned at Date Recorded Not on file Industry Job Start Date Occupation Not on file Not on file Not on file Travel End Travel History Travel Start No recent travel history available. Date Recorded COVID-19 Exposure Response 10/12/2019 10:23 AM CDT In the last month, have you been in contact with No / Unsure someone who was confirmed or suspected to have Coronavirus / COVID-19? documented as of this encounter Last Filed Vital Signs Not on filedocumented in this encounter Progress Notes * Alice Mcmahon MD - 10/12/2019 5:00 PM CDT Cc: Chief Complaint Patient presents with WHEEZING Sore Throat Eleonora Anderson is a 44 year old female presents for a COVID-19 TeleHealth alt ernative visit via telephone call. HPI Patient has given verbal consent to do TeleHealth telephone visit for today's ap pointment. The appointment is being conducted with the patient at her residence and me at my residence. Patient states starting Friday she started with a mild cough. Patient states by Friday morning she woke up with a sore throat. Patient states that she started noticing mild wheezing on Friday. She states when she was trying to go to bed her wheezing started progressing and worsening. Patient states that she has no fever. She denies any known exposure to COVID. Denies any shortness of breath or difficulty breathing. Patient states has productive cough with green sputum. No history of Asthma. she has no history of seasonal or environmental allergi es . Patient is on medication that lowers her immune system due to her autoimmu ne disease. The only medication she is taking is OTC Theraflu. Allergies Eleonora has No Known Allergies. Medications Outpatient Medications Prior to Visit Medication Sig Dispense Refill DULoxetine (CYMBALTA) 30 mg capsule Take 1 capsule by mouth 2 (two) times da marty. 180 capsule 1 lansoprazole 30 mg capsule Take 1 capsule by mouth daily. 90 capsule 1 lisinopril 10 mg tablet Take 1 tablet by mouth daily. 90 tablet 1 acetaminophen with codeine (TYLENOL-CODEINE #3 ORAL) Take by mouth. acetaminophen with codeine (TYLENOL-CODEINE #4 ORAL) Take by mouth. dicyclomine 20 mg tablet Take 20 mg by mouth 4 (four) times daily. sarilumab (KEVZARA SC) inject under the skin. No facility-administered medications prior to visit. Histories Past Medical History: Diagnosis Date Depression Diverticulosis H. pylori infection IBS (irritable bowel syndrome) RA (rheumatoid arthritis) TB (tuberculosis) No past surgical history on file. Social History Socioeconomic History Marital status: Spouse name: Not on file Number of children: Not on file Years of education: Not on file Highest education level: Not on file Occupational History Not on file Social Needs Financial resource strain: Not on file Food insecurity: Worry: Not on file Inability: Not on file Transportation needs: Medical: Not on file Non-medical: Not on file Tobacco Use Smoking status: Never Smoker Smokeless tobacco: Never Used Substance and Sexual Activity Alcohol use: Yes Comment: socially Drug use: Not on file Sexual activity: Not on file Lifestyle Physical activity: Days per week: Not on file Minutes per session: Not on file Stress: Not on file Relationships Social connections: Talks on phone: Not on file Gets together: Not on file Attends episcopal service: Not on file Active member of club or organization: Not on file Attends meetings of clubs or organizations: Not on file Relationship status: Not on file Intimate partner violence: Fear of current or ex partner: Not on file Emotionally abused: Not on file Physically abused: Not on file Forced sexual activity: Not on file Other Topics Concern Not on file Social History Narrative Pt is a MA for private practice Family History Problem Relation Age of Onset Hypertension Mother Stroke Mother Hypertension Father Coronary Heart Disease Father Coronary Heart Disease Maternal Grandmother Cancer Paternal Grandmother breast Review of Systems Constitutional: Negative for chills and fever. HENT: Positive for postnasal drip and sore throat. Negative for ear pain and sin us pressure. Respiratory: Positive for cough and wheezing. Negative for chest tightness and s hortness of breath. Cardiovascular: Negative. Gastrointestinal: Negative. Neurological: Negative. Vital Signs There were no vitals taken for this visit. Physical Exam Constitutional: She is oriented to person, place, and time. No distress. Patient coughing frequently during her appointment. She has a productive cough. No respiratory distress heard Or audible wheezing. Pulmonary/Chest: No respiratory distress. Neurological: She is alert and oriented to person, place, and time. Assessment/Plan 1. Bronchitis ADVISED INCREASED FLUID INTAKE, REST, OTC ANALGESICS FOR ACHES, PAINS AND FEVER. - levoFLOXacin 500 mg tablet; Take 1 tablet by mouth every 24 (twenty-four) hour s for 10 days. Dispense: 10 tablet; Refill: 0 - codeine-guaifenesin (CHERATUSSIN AC) 10-100 mg/5 mL solution; Take 5 mL by maria c th every 6 (six) hours as needed for Cough. Dispense: 240 mL; Refill: 0 - albuterol 90 mcg/actuation inhaler; Inhale 2 Puffs every 6 (six) hours as need ed for Wheezing or Shortness of Breath. Dispense: 8.5 g; Refill: 1 2. Acute sore throat - levoFLOXacin 500 mg tablet; Take 1 tablet by mouth every 24 (twenty-four) hour s for 10 days. Dispense: 10 tablet; Refill: 0 Patient advised COVID signs and symptoms to watch for. If her breathing worsens in particular I advised patient she needs to call the access center to be re-ev aluated by concert manager Nurse so that they can advise proper management. The TeleHealth appointment lasted a total of 10 minutes. This visit did not involve counseling and coordination that comprised more than 50% of the visit time. documented in this encounter Plan of Treatment Care Team Description Date Type Specialty Alice Mcmahon MD [address] [phone] 03/03/2020 Office Visit Family Medicine Health Maintenance Due Date Last Done Comments Breast Cancer Screening 08/25/2014 08/25/2013 (MAMMOGRAM) PAP SMEAR 08/30/2022 08/31/2019, 019 DTaP,Tdap,and Td Vaccines 06/28/2024 06/28/2014 (2 - Td) INFLUENZA VACCINE Completed 02/26/2019, 019 PNEUMOCOCCAL 0-64 YEARS Aged Out No longer elig ible based COMBINED SERIES on patient's age to complete this topic documented as of this encounter Results Not on filedocumented in this encounter Visit Diagnoses Diagnosis Bronchitis - Primary Bronchitis, not specified as acute or c hronic Acute sore throat documented in this encounter Insurance Type Payer Benefit Subscriber ID Effective Phone Address Plan / Dates Group [facility] [id number] 2018-P [phone] [place] [id number] [facility] [id number] documented as of this encounter
--- OUTSIDE RECORDS SUMMARY | 2019-11-19 21:07 | XMS REPORT ---
Author Author Eleonora Lei Organization [employer] Address Unknown Phone Unavailable Care Team Providers Care Automobile Designer Name Role Phone Mayra Lei CP Unavailable Allergies No Known Allergies Problems Problem Type Condition Code Onset Dates Condition Statu s Problem Rheumatoid arthritis M06.9 Active Problem Hypertension I10 Active Problem BMI 45.0-49.9, adult Z68.42 Active Assessment Positive TB test R76.11 Active Problem Depression F32.9 Active Problem Left knee pain M25.562 Active Medications No Known Medications Results No Known Results Summary Purpose eClinicalWorks Submission
--- OUTSIDE RECORDS SUMMARY | 2019-11-19 21:07 | XMS REPORT ---
Author Author Eleonora Willis Organization [employer] Address Unknown Phone Unavailable Care Team Providers Care Curbing Stonecutter Name Role Phone Kemi Willis CP Unavailable Allergies No Known Allergies Problems Problem Type Condition Code Onset Dates Condition Statu s Problem Rheumatoid arthritis M06.9 Active Problem Hypertension I10 Active Problem BMI 45.0-49.9, adult Z68.42 Active Problem Depression F32.9 Active Problem Left knee pain M25.562 Active Medications No Known Medications Results No Known Results Summary Purpose [employer] Submission
--- OUTSIDE RECORDS SUMMARY | 2019-11-19 21:07 | XMS REPORT | Continuity of Care Document ---
Author Author [facility] t Organization [facility] Address [address] [place] [address] Phone Unavailable Care Team Providers Care Feedlot Manager Name Role Phone Lisandro BATRES, Alice Attphys Soto BATRES, Salbador Smith Attphys Sam PLATT, M Eladia Attphys Unavailable Floresita Martinez Attphys Floresita Martinez Admphys Problems Condition Name Condition Details Condition Category Status Onset Date Resolution Date Last Treatment Date Treating Clinician Comments Source PRE ADMIT PRE ADMIT Active 05/07/2014 [facility] Diagnosis Active 2014-05-07 06:00:00 2014-05-07 16:32:00 Linda Barltett INDUCTION OWEN CTION Active 05/07/2014 [facility] Diagnosis Active 2014-05-07 06:00:00 2014-05-28 07:22:00 Linda Bartlett V23.9 / 009.90 V23. 9 / 009.90 Active 04/19/2014 [facility] Active 2014-04-19 00:00:00 2014-04-22 13:16:00 Linda Bartlett DNC DNC Active 06/16/2013 [facility] Diagnosis Active 2013-06-16 00:00:00 2014-06-23 17:34:00 Linda Bartlett Depression Depr ession Active Problem 05/18/2019 [facility] Problem Active 03:03:53 Linda Bartlett Left knee pain Left knee pain Active Problem 05/18/2019 [facility] Problem Active 03:03:53 Linda Bartlett Hypertension Hype rtension Active Problem 05/18/2019 [facility] Problem Active 2 03:03:53 Linda Posadasann Rheumatoid arthritis Rheu matoid arthritis Active Problem 05/18/2019 [facility] Problem Active 2019-05-18 03:03:53 Linda Bartlett BMI 45.0-49.9, adult BMI 45.0-49.9, adult Active Problem 05/18/2019 [facility] Problem Active 2019-05-18 03:03:53 Linda Posadasann Abnormal urinalysis Abno rmal urinalysis Active Diagnosis 08/04/2018 [facility] Diagnosis Active 2018-08-04 03:02:48 Linda Dhruv Positive PPD Posi tive PPD Active Diagnosis 05/05/2019 [facility] Diagnosis Active 2019-05-05 03:34:36 Linda Bartlett Nausea Naus ea Active Diagnosis 11/27/2018 [facility] Diagnosis Active 2018-11-27 02:02:18 Linda Bartlett Vertigo Vert igo Active Diagnosis 11/27/2018 [facility] Diagnosis Active 2018-11-27 02:02:18 Linda Bartlett Acute URI Acut e URI Active Diagnosis 11/27/2018 [facility] Diagnosis Active 2018-11-27 02:02:18 Linda Bartlett Chills Chil ls Active Diagnosis 11/27/2018 [facility] Diagnosis Active 2018-11-27 02:02:18 Linda Bartlett Elevated blood sugar level Yaz vated blood sugar level Active Diagnosis 05/05/2019 [facility] Diagnosis Active 2019-05-05 03:08:05 Fernando Bartlett Helicobacter pylori (H. pylori) Helicobacter pylori (H. pylori) Active Diagnosis 05/05/2019 [facility] Diagnosis Active 2019-05-05 03:08:05 Linda Bartlett PROLONGED PREG-UNSP PROL ONGED PREG-UNSP Active [facility] Diagnosis Active 2014-05-28 07:22:00 Linda Bartlett ADMINISTRTVE ENCOUNT NOS ADMI NISTRTVE ENCOUNT NOS Active [facility] Diagnosis Active 2014-06-23 17:34:00 Linda Bartlett V23.9 V23. 9 Active [facility] Active 2014-07-08 09:26:00 [facility] Allergies, Adverse Reactions, Alerts Allergy Name Allergy Type Status Severity Reaction(s) Onset Date Inacti ve Date Treating Clinician Comments Source Denis Barrios Active Info Not Available 2018-09-23 00:00:00 [facility] Social History Smoking Status Start Date Stop Date Source Social History [facility] Medications Ordered Medication Name Filled Medication Name Start Date Stop Da te Current Medication? Ordering Clinician Indication Dosage Frequency Signature (SIG) Comments Components Source Amoxicillin 2019-04-26 00:00:00 Yes Kemi Chu 2 tablets [facility] Omeprazole 2019-04-26 00:00:00 Yes Kemi Chu 1 tablet [facility] Clarithromycin 2019-04-26 00:00:00 Yes Kemi Chu 1 tablet [facility] Omeclamox-Jeff 2019-04-21 00:00:00 Yes Kemi Chu as directed on pack [facility] Ondansetron 2018-10-30 00:00:00 Yes Marianne Olguin 1 tablet on the tongue and allow to dissolve as needed [facility] Bromfed DM 2018-10-30 00:00:00 Yes Marianne Olguin 10 ml as needed [facility] Meclizine HCl 2018-10-29 00:00:00 Yes Marianne Olguin 1 tablet as needed [facility] Isoniazid 2018-09-23 00:00:00 Yes Kemi Chu 1 tablet [facility] Pyridoxine HCl 2018-09-23 00:00:00 Yes Kemi Chu 1 tablet [facility] Lisinopril 2018-07-03 00:00:00 Yes Kemi Chu 1 tablet [facility] Methotrexate 2018-07-03 00:00:00 Yes Kemi Chu as directed [facility] Folic Acid 2018-07-03 00:00:00 Yes Kemi Chu 1 tablet [facility] Wellbutrin XL 2018-07-03 00:00:00 Yes Kemi Chu 1 tablet in the morning [facility] Humira 2018-07-03 00:00:00 Yes Kemi Chu 0.8 ml [facility] ferrous sulfate 2014-06-21 23:00:00 No Notes: Give with food. "Do Not Crush" [facility] Atropine Sulfate 0.025 MG / Diphenoxylat e Hydrochloride 2.5 MG Oral Tablet [Lomotil] 2014-06-21 15:06:00 No Notes: (Same As: Lomotil) MAX Adult dose = 8 tabs/day Linda Bartlett Multivitamins oral tablet 2014-06-21 15:00:00 No 1 tab, Route: PO, Drug Form: TAB, Dosing Weight 110, kg, Daily, Start date: 06/21/14 9:00:00, Duration: 30 day, Stop date: 07/20/14 9:00:00 Linda Bartlett Methyldopa 250 MG Oral Tablet 2014-06-21 15:00:00 No Notes: May interfere w/enteral feedings. (Same as:Aldomet) Linda Bartlett Acetaminophen 300 MG / Codeine Phosphate 30 MG Oral Tablet [Tylenol with Codeine #3] 2014-06-21 14:43:00 Yes 1 tab, PO, Q4H, for pain, # 30 tab, 0 Refill(s) Linda Bartlett Docusate Sodium 100 MG Oral Capsule [Colace] 2014-06-21 14:43:00 Yes 100 mg = 1 cap, PO, BID, Constipation, # 20 cap, 0 Refill(s) Linda Bartlett Doxycycline 2014-06-21 10:00:00 No Notes: NO MILK/ANTACIDS/IRON Take 1 hour before or 2 hours after dairy products Linda Bartlett benzocaine-menthol topical 2014-06-21 06:06:00 No Notes: Cepacol lozenges Dispense 1 box = 16 lozenges (Same As: Cepacol Lozenges) Linda Bartlett Cepacol Lozenge 2014-06-21 06:01:00 No 1 lozenge, Route: MUCOUS MEM, Q4H, Drug form: DENTON, PRN Sore Throat, Start date: 06/21/14 0:01:00, Duration: 30 day, Stop date: 07/21/14 0:00:00 Fazal Bartlett Atropine Sulfate 0.025 MG / Diphenoxylat e Hydrochloride 2.5 MG Oral Tablet [Lomotil] 2014-06-21 04:47:00 No Notes: (Same As: Lomotil) MAX Adult dose = 8 tabs/day Linda Bartlett Doxycycline 2014-06-21 03:19:00 No Notes: ( Same as: Vibramycin) Linda Bartlett M-M-R II 2014-06-21 01:00:00 No Notes: (Same as: M-M-R II) (ywpfgco-upqmn-cqemelv virus vaccine 0.5 ml INJ VL) GIVE PRIOR TO DISCHARGE Linda Bartlett Famotidine 2014-06-21 01:00:00 No Notes: (Same as: Pepcid) Can be dilute in 5-10cc NS IVP: Slow IV push over at least 2 minutes. [facility] Misoprostol 2014-06-21 01:00:00 No Notes: (Same as:Cytotec) Take with food [facility] Methylergonovine 2014-06-21 01:00:00 No Notes: (Same as:Methergine) [facility] Citric Acid / sodium citrate 2014-06-21 01:00:00 No Notes: (Same As: Bicitra, Cytra-2) Sodium citrate-citric acid (500-334 mg/5 mL): 1 mL contains sodium 1 mEq/mL and bicarbonate 1 mEq/mL [facility] Carboprost 2014-06-21 01:00:00 No Notes: (S nadja As: Hemabate) [facility] Acetaminophen 325 MG / Hydrocodone Bitartrate 5 MG Oral Tabl et 2014-06-21 00:53:00 No Notes: (Sa me as: [place] 325/5) Do not exceed 4gm/day of acetaminophen. [facility] Acetaminophen 325 MG / Hydrocodone Bitartrate 10 MG Oral Tab let 2014-06-21 00:53:00 No Notes: Do not exceed 4gm/day of acetaminophen. (Same as: [place] 325/10) [facility] Acetaminophen 2014-06-21 00:53:00 No Notes: Do not exceed 4 gm/day. (Same as: Tylenol) [facility] Ibuprofen 2014-06-21 00:53:00 No Notes: (Same as: Motrin) "Do Not Crush" Take with food. [facility] [address] Oxytocin 0.03 UNT/ML Injectable Solution 2014-06-21 00:53:00 No Notes: (Same as: OXYTOCIN-D5LR) Linda Bartlett Lactated Ringers IV 1,000 mL 2014-06-21 00:53:00 No 1,000 mL, Rate: 100 ml/hr, Infuse over: 10 hr, Route: IV, Dosing Weight 110 kg, Total Volume: 1,000, Start date: 06/20/14 18:53:00, Duration: 30 day, Stop date: 07/20/14 18:52:00 Linda Bartlett Ondansetron 2014-06-21 00:53:00 No Notes: ( Same as: Zofran) Linda Bartlett Bisacodyl 2014-06-21 00:53:00 No Notes: (Same As: Dulcolax, Bisco-Lax) Linda Bartlett lanolin topical 2014-06-21 00:53:00 No 1 appl, Route: TOP, PRN, Drug form: OINT, PRN Other -See Comment, Start date: 06/20/14 18:53:00, Duration: 30 day, Stop date: 07/20/14 18:52:00 [facility] Methylergonovine 2014-06-21 00:53:00 No Notes: (Same as:Methergine) Linda Posadasann zolpidem 2014-06-21 00:53:00 No Notes: (Tanner e As: aTmmi) Linda Bartlett Benzocaine 200 MG/ML Topical Emblem [Dermoplast] 2014-06-21 00:53 :00 No Notes: (Same As: Dermoplast) FOR EXTERNAL USE ONLY Linda Bartlett Docusate 2014-06-21 00:53:00 No Notes: (Same as: Colace) (Do Not Crush) Linda [facility]ruv Ondansetron 2014-06-21 00:52:00 No Notes: ( Same as: Zofran) Linda Posadasann Lidocaine Hydrochloride 10 MG/ML Injectable Solution 06-21 00:52:00 No Notes: (Same as: Xylocaine) [facility] [place] Terbutaline 2014-06-21 00:52:00 No Notes: DO NOT USE IN HARBOR TUG CAPTAIN AREA (Same As: Brethine) [facility] Her pagan Butorphanol 2014-06-21 00:52:00 No Notes: ( Same As: Stadol) Linda Posadasann Oxytocin 0.03 UNT/ML Injectable Solution 2014-06-21 00:52:00 No Notes: (Same as: OXYTOCIN-D5LR) Linda Posadasann Lactated Ringers IV 1,000 mL 2014-06-21 00:52:00 No 1,000 mL, Rate: 125 ml/hr, Infuse over: 8 hr, Route: IV, Dosing Weight 110 kg, Total Volume: 1,000, Start date: 06/20/14 18:52:00, Duration: 30 day, Stop date: 07/20/14 18:51:00 Linda Bartlett Calcium Chloride 0.0014 MEQ/ML / Potassi um Chloride 0.004 MEQ/ML / Sodium Chloride 0.103 MEQ/ML / Sodium Lactate 0.028 MEQ/ML Injectable Solution 2014-06-21 00:52:00 No 1,000 mL, 1,000 ml/hr, Infuse Over: 1 hr, Route: IV, 1,000, Drug form: INJ, ONCE, Dosing Weight 110 kg, Start date: 06/20/14 18:52:00, Stop date: 06/20/14 18:52:00, Bolus for regional anesthesia per unit protocol Linda Bartlett ferrous sulfate 325 mg oral enteric coated tablet 2014-05-31 13:46:00 Yes 325 mg = 1 tab, PO, BID, # 60 tab, 0 Refill(s) Linda Bartlett Docusate Sodium 100 MG Oral Capsule [Colace] 2014-05-31 13:46:00 Yes 100 mg = 1 cap, PO, BID, # 60 cap, 0 Refill(s) Linda Bartlett ibuprofen 600 mg oral tablet 2014-05-31 13:46:00 Yes Special Instructions: Take with food Linda amin Acetaminophen 300 MG / Codeine Phosphate 30 MG Oral Tablet [Tylenol with Codeine #3] 2014-05-31 13:46:00 Yes 1 tab, PO, Q6H, for pain, # 30 tab, 0 Refill(s) Linda Bartlett Acetaminophen 300 MG / Codeine Phosphate 30 MG Oral Tablet [Tylenol with Codeine #3] 2014-05-30 15:22:00 No Notes: Do not exceed 4gm/day of acetaminophen. (Same as: Tylenol with Codeine # 3) Linda Bartlett Multivitamins oral tablet 2014-05-30 15:00:00 No 1 tab, Route: PO, Drug Form: TAB, Dosing Weight 120.909, kg, Daily, Start date: 05/30/14 9:00:00, Duration: 30 day, Stop date: 06/28/14 9:00:00 Linda Bartlett Naloxone 2014-05-30 04:00:00 No Notes: Same as Narcan Linda Bartlett Ondansetron 2014-05-30 03:26:00 No Notes: ( Same as: Zofran) Linda Bartlett Ketorolac 2014-05-30 03:26:00 No 4 days Linda Bartlett tramadol hydrochloride 50 MG Oral Tablet 2014-05-30 03:10:00 No Notes: Not to exceed 400mg/day. (Same As: Ultram) Linda Bartlett M-M-R II 2014-05-29 23:00:00 No Notes: (Same as: M-M-R II) (mazfbij-awmzv-zwvygem virus vaccine 0.5 ml INJ VL) GIVE PRIOR TO DISCHARGE Linda Bartlett Acetaminophen 325 MG / Hydrocodone Bitartrate 10 MG Oral Tab let 2014-05-29 22:12:00 No Notes: Do not exceed 4gm/day of acetaminophen. (Same as: [place] 325/10) Linda Bartlett Acetaminophen 2014-05-29 22:12:00 No Notes: Do not exceed 4 gm/day. (Same as: Tylenol) [facility] [address] Ibuprofen 2014-05-29 22:12:00 No Notes: (Same as: Motrin) "Do Not Crush" Take with food. Linda Bartlett Acetaminophen 325 MG / Hydrocodone Bitartrate 5 MG Oral Tabl et 2014-05-29 22:12:00 No Notes: (Sa me as: [place] 325/5) Do not exceed 4gm/day of acetaminophen. Linda Bartlett Methylergonovine 2014-05-29 22:12:00 No Notes: (Same as:Methergine) [facility] [address] zolpidem 2014-05-29 22:12:00 No Notes: (Tanner e As: Ambien) Linda Bartlett Benzocaine 200 MG/ML Topical Emblem [Dermoplast] 2014-05-29 22:12 :00 No Notes: (Same As: Dermoplast) FOR EXTERNAL USE ONLY Linda Bartlett lanolin topical 2014-05-29 22:12:00 No Note s: (Same as:Lanolin) Linda Bartlett Bisacodyl 2014-05-29 22:12:00 No Notes: (Same As: Dulcolax, Correctol) (Do Not Crush) "Do Not Crush" [facility] [address] Docusate 2014-05-29 22:12:00 No Notes: (Same as: Colace) (Do Not Crush) Linda Bartlett Ondansetron 2014-05-29 22:12:00 No Notes: ( Same as: Zofran) Linda Bartlett Oxytocin 0.03 UNT/ML Injectable Solution 2014-05-29 22:12:00 No Notes: (Same as: OXYTOCIN-D5LR) Linda Bartlett Lactated Ringers IV 1,000 mL 2014-05-29 22:12:00 No 1,000 mL, Rate: 100 ml/hr, Infuse over: 10 hr, Route: IV, Dosing Weight 120.909 kg, Total Volume: 1,000, Start date: 05/29/14 16:12:00, Duration: 30 day, Stop date: 06/28/14 16:11:00 Linda Bartlett Oxytocin 0.03 UNT/ML Injectable Solution 2014-05-29 01:14:00 No Notes: (Same as: OXYTOCIN-D5LR) Linda Bartlett D5LR 1,000 mL 2014-05-29 00:27:00 No 1,000 mL, Rate: 125 ml/hr, Infuse over: 8 hr, Route: IV, Dosing Weight 120.909 kg, Total Volume: 1,000, Start date: 05/28/14 18:27:00, Duration: 30 day, Stop date: 06/27/14 18:26:00 Linda Bartlett Misoprostol 2014-05-28 22:00:00 No Notes: (Same as:Cytotec) Take with food 25 microgram = 1/4 tab of 100 microgram. Linda Bartlett 1 oral capsule 2014-05-28 19:11:00 No 0 Refill(s) Linda Bartlett Glyburide 2014-05-28 19:11:00 No 0 Refill(s ) Linda Bartlett Methyldopa 2014-05-28 19:11:00 No 0 Refill( s) [facility] Cytotec 2014-05-28 15:05:00 No 50 microgram, Route: PO, Drug form: TAB, ONCE, Dosing Weight 120.909, kg, Start date: 05/28/14 9:05:00, Stop date: 05/28/14 9:05:00 Linda Bartlett Remove - dinoprostone (Cervidil) insert 2014-05-28 15:00:00 No Notes: Vaginal insert: to be removed 1 hour prior to oxytocin administration or 12 hours after insertion. Linda Raya nn Cervidil 2014-05-28 02:35:00 No Notes: (Tanner e as: Cervidil) Linda Bartlett Oxytocin 0.03 UNT/ML Injectable Solution 2014-05-27 14:00:00 No Notes: (Same as: OXYTOCIN-D5LR) Linda Bartlett Misoprostol 2014-05-27 11:00:00 No Notes: (Same as:Cytotec) Take with food 25 microgram = 1/4 tab of 100 microgram. Linda Posadasann Tylenol 2014-05-27 10:38:00 No Notes: Do not exceed 4 gm/day. (Same as: Tylenol) Linda Bartlett Dextrose 50% Syringe 2014-05-27 10:28:00 No 12.5 gm, 25 mL, Route: IVP, Drug Form: INJ, Dosing Weight 120.909, kg, PRN, PRN Abnormal Lab Result, Start date: 05/27/14 4:28:00, Duration: 30 day, Stop date: 06/26/14 4:27:00 Linda Bartlett Regular Insulin, Human 100 UNT/ML Injectable Solution 2014-05-27 10:28:00 No [address]) [address] able for 28 days at room temperature Expires in days from Date Linda Brown eloisa Carboprost 2014-05-27 10:00:00 No Notes: (S nadja As: Hemabate) Linda Bartlett Misoprostol 2014-05-27 10:00:00 No Notes: (Same as:Cytotec) Take with food Linda Posadasann Citric Acid / sodium citrate 2014-05-27 10:00:00 No Notes: (Same As: Bicitra, Cytra-2) Sodium citrate-citric acid (500-334 mg/5 mL): 1 mL contains sodium 1 mEq/mL and bicarbonate 1 mEq/mL Linda Posadasann Methylergonovine 2014-05-27 10:00:00 No Notes: (Same as:Methergine) Linda Posadasann Famotidine 2014-05-27 10:00:00 No Notes: (Same as: Pepcid) Can be dilute in 5-10cc NS IVP: Slow IV push over at least 2 minutes. Linda Posadasann Terbutaline 2014-05-27 09:45:00 No Notes: DO NOT USE IN HARBOR TUG CAPTAIN AREA (Same As: Brethine) Linda pagan Lidocaine Hydrochloride 10 MG/ML Injectable Solution 05-27 09:45:00 No Notes: (Same as: Xylocaine) Linda Bartlett Ondansetron 2014-05-27 09:45:00 No Notes: ( Same as: Zofran) Linda Posadasann Butorphanol 2014-05-27 09:45:00 No Notes: ( Same As: Stadol) [facility] [place] Calcium Chloride 0.0014 MEQ/ML / Potassi um Chloride 0.004 MEQ/ML / Sodium Chloride 0.103 MEQ/ML / Sodium Lactate 0.028 MEQ/ML Injectable Solution 2014-05-27 09:45:00 No 1,000 mL, 1,000 ml/hr, Infuse Over: 1 hr, Route: IV, 1,000, Drug form: INJ, ONCE, Dosing Weight 120.909 kg, Start date: 05/27/14 3:45:00, Stop date: 05/27/14 3:45:00, Bolus for regional anesthesia per unit protocol Linda Bartlett Oxytocin 0.03 UNT/ML Injectable Solution 2014-05-27 09:45:00 No Notes: (Same as: OXYTOCIN-D5LR) Linda Bartlett Lactated Ringers IV 1,000 mL 2014-05-27 09:45:00 No 1,000 mL, Rate: 125 ml/hr, Infuse over: 8 hr, Route: IV, Dosing Weight 120.909 kg, Total Volume: 1,000, Start date: 05/27/14 3:45:00, Duration: 30 day, Stop date: 06/26/14 3:44:00 [facility] Vital Signs Vital Name Observation Time Observation Value Comments Source Weight 2018-10-29 21:15:00 [facility] Height 2018-10-29 21:15:00 [facility] Temperature Oral (F) 2018-10-29 21:15:00 98.1 F [facility] Heart Rate 2018-10-29 21:15:00 [facility] Diastolic (mm Hg) 2018-10-29 21:15:00 [facility] [place] Systolic (mm Hg) 2018-10-29 21:15:00 [facility] Weight 2018-09-23 15:30:00 [facility] Height 2018-09-23 15:30:00 [facility] Heart Rate 2018-09-23 15:30:00 [facility] [place] Diastolic (mm Hg) 2018-09-23 15:30:00 [facility] Systolic (mm Hg) 2018-09-23 15:30:00 [facility] Weight 2018-08-03 15:15:00 [facility] Height 2018-08-03 15:15:00 [facility] [place] Heart Rate 2018-08-03 15:15:00 [facility] Diastolic (mm Hg) 2018-08-03 15:15:00 [facility] Systolic (mm Hg) 2018-08-03 15:15:00 [facility] Height 2018-07-10 20:39:00 [facility] [place] Diastolic (mm Hg) 2014-06-21 12:17:00 [facility] Systolic (mm Hg) 2014-06-21 12:17:00 [facility] [place] Respitory Rate 2014-06-21 12:17:00 [facility] Heart Rate 2014-06-21 12:17:00 [facility] Temperature Oral (F) 2014-06-21 12:17:00 98.1 F [facility] Systolic (mm Hg) 2014-06-21 06:38:00 [facility] [place] Heart Rate 2014-06-21 06:38:00 [facility] Respitory Rate 2014-06-21 06:38:00 [facility] Diastolic (mm Hg) 2014-06-21 06:38:00 [facility] [place] Systolic (mm Hg) 2014-06-21 05:54:00 [facility] [place] Diastolic (mm Hg) 2014-06-21 05:54:00 [facility] Heart Rate 2014-06-21 05:54:00 [facility] Respitory Rate 2014-06-21 05:54:00 [facility] Temperature Oral (F) 2014-06-21 05:37:00 97.1 F [facility] Temperature Oral (F) 2014-06-21 02:08:00 98.4 F [facility] [place] Weight 2014-06-21 00:05:00 [facility] [place] BMI Calculated 2014-06-21 00:05:00 [facility] Height 2014-06-21 00:05:00 157.48 cm [facility] Diastolic (mm Hg) 2014-05-31 06:30:00 [facility] [place] Temperature Oral (F) 2014-05-31 06:30:00 97.9 F [facility] Systolic (mm Hg) 2014-05-31 06:30:00 [facility] Heart Rate 2014-05-31 06:30:00 [facility] [place] Respitory Rate 2014-05-31 06:30:00 [facility] Diastolic (mm Hg) 2014-05-30 22:45:00 [facility] [place] Systolic (mm Hg) 2014-05-30 22:45:00 [facility] [place] Heart Rate 2014-05-30 22:45:00 [facility] Temperature Oral (F) 2014-05-30 22:45:00 98.2 F [facility] [place] Respitory Rate 2014-05-30 22:45:00 [facility] [place] Diastolic (mm Hg) 2014-05-30 18:24:00 [facility] Respitory Rate 2014-05-30 18:24:00 [facility] Systolic (mm Hg) 2014-05-30 18:24:00 F[facility]al [facility] Temperature Oral (F) 2014-05-30 18:24:00 97.4 F [facility] Heart Rate 2014-05-30 18:24:00 [facility] [place] Height 2014-05-27 06:23:00 157.48 cm [facility] [place] BMI Calculated 2014-05-27 06:23:00 [facility] [place] Weight 2014-05-27 06:23:00 [facility] BMI Calculated 2014-04-22 19:40:00 [facility] Weight 2014-04-22 19:40:00 [facility] [place] Height 2014-04-22 19:40:00 157.48 cm [facility] [place] Procedures This patient has no known procedures. Encounters Start Date/Time End Date/Time Encounter Type Admission Type Attendi [facility] Care Department Encounter ID Source 2019-11-19 00:00:00 2019-11-19 00:00:00 Patient Secure [facility] [id number] 2019-10-21 00:00:00 2019-10-21 00:00:00 Telephone Curtis BayJessica michellean Salbador [facility] [id number] 2019-10-19 15:25:00 2019-10-19 23:59:00 [facility] [id number] 2019-10-19 00:00:00 2019-10-19 00:00:00 [address] [facility] [id number] 2019-10-12 14:15:01 2019-10-12 14:35:01 Telemedicine Visit [facility] [id number] 2019-10-12 00:00:00 2019-10-12 00:00:00 Nurse Triage Eladia Vargas [facility] [id number] 2019-05-14 16:34:00 2019-05-14 16:34:00 Outpatient [facility] [id number] [employer] 2019-04-22 20:41:00 2019-04-22 20:41:00 Outpatient [facility] [id number] [employer] 2019-04-21 04:41:00 2019-04-21 04:41:00 Outpatient [facility] [id number] [employer] 2019-03-08 17:26:00 2019-03-08 17:26:00 Outpatient [facility] [id number] [employer] 2018-11-24 15:54:00 2018-11-24 15:54:00 Outpatient [facility] [id number] [employer] 2018-11-11 12:41:00 2018-11-11 12:41:00 Outpatient [facility] [id number] [employer] 2018-10-29 21:33:00 2018-10-29 21:33:00 Outpatient [facility] [id number] [employer] 2018-10-29 16:15:00 2018-10-29 16:15:00 Outpatient [facility] [id number] [employer] 2018-10-26 17:21:00 2018-10-26 17:21:00 Outpatient [facility] [id number] [employer] 2018-10-26 09:10:00 2018-10-26 09:10:00 Outpatient [facility] [id number] [employer] 2018-09-29 19:11:00 2018-09-29 19:11:00 Outpatient [facility] [id number] [employer] 2018-09-29 00:26:00 2018-09-29 00:26:00 Outpatient [facility] [id number] [employer] 2018-09-23 09:30:00 2018-09-23 09:30:00 Outpatient [facility] [id number] [employer] 2018-09-22 11:08:00 2018-09-22 11:08:00 Outpatient [facility] [id number] [employer] 2018-09-22 11:07:00 2018-09-22 11:07:00 Outpatient [facility] [id number] [employer] 2018-08-17 19:24:00 2018-08-17 19:24:00 Outpatient [facility] [id number] [employer] 2018-08-03 09:15:00 2018-08-03 09:15:00 [facility] [id number] eClinicalWorks 2018-07-10 14:39:00 2018-07-10 14:39:00 [facility] [id number] eClinicalWorks 2014-07-08 09:25:00 2014-07-08 23:59:00 Outpatient Vira Boo [facility] [id number] 2014-06-20 18:53:00 2014-06-21 11:31:00 Outpatient Refjeramy Vira reavesJUAN DIEGO JUAN DIEGO [id number] 2014-05-26 20:42:00 2014-05-31 12:24:00 Outpatient OlimpiaVira crespoJUAN DIEGO JUAN DIEGO [id number] 2014-04-22 13:07:00 2014-04-22 23:59:00 Outpatient Refjeramy reavesVira JUAN DIEGO JUAN DIEGO [id number] Results Test Description Test Time Test Comments Results Result Comments Source GLUCOSE TOLR 2014-07-08 18:45:00 122 [facility] [place] GLUCOSE TOLR 2014-07-08 17:45:25 194 [facility] [place] GLUCOSE TOLR 2014-07-08 16:11:00 101 [facility] orial [place] HEMATOLOGY 2014-06-21 10:02:00 29.5 Memor ial [place] HEMATOLOGY 2014-06-21 10:02:00 9.9 Memor [facility] [place] BLOOD BANK RESULTS 2014-06-21 01:23:00 Negative (06/20/14 7: 23 PM) [facility] [place] HEMATOLOGY 2014-06-21 01:23:00 8.1 [facility]or [facility] [place] HEMATOLOGY 2014-06-21 01:23:00 342 Memor ial [place] HEMATOLOGY 2014-06-21 01:23:00 12.0 Memor ial [place] HEMATOLOGY 2014-06-21 01:23:00 8.7 Memor ial [place] HEMATOLOGY 2014-06-21 01:23:00 4.04 Memor ial [place] HEMATOLOGY 2014-06-21 01:23:00 35.7 Memor ial [place] HEMATOLOGY 2014-06-21 01:23:00 88.5 Memor ial [place] HEMATOLOGY 2014-06-21 01:23:00 33.5 Memor ial [place] HEMATOLOGY 2014-06-21 01:23:00 15.5 Memor ial [place] HEMATOLOGY 2014-06-21 01:23:00 Test Item MCH (test code = MCH) 29.7 pg 27.0-31.0 [facility] QftprlvEAQRNWEKBC4802-82-23 01:23[facility] 2014-[facility]-21 01:23:0029.8[facility] UxqxbjiHERCHKIIBX0620-01-89 01:23:004.9[facility] VtzmvanIXRVJLZTZH3304-95-89 01:23:001.4[facility] HxatwojRBJBFSUXGM0378-71-61 01:23:000.8[facility] AtecxsqZWGRWNGOMR3200-35-81 01:23:000.4[facility] [place] JZKVSHRUTZ4920-37-07 01:23:002.6[facility] SildicfIBXLMNCCKA1467-71-66 01:23:005.5 [facility] QrbemxbWDQKMZOZDM3716-23-36 01:23:000.1[facility] 2014-06-21 01:23:000.1[facility] FebxrvmSOAYGXHAJT3937-84-29 01:23:00Non Reactive *NA*(06/20/14 7:23 PM)[facility] YvavhlxJADIHHOECZ0000-25-51 01:23:00Negative *NA*(06/20/14 7:23 PM)[facility] VvdydmbEHSHIUJKJI4789-24-33 11:55:0026.9[facility] LyazgeySGJNGJVLTT4117-33-56 11:55:009.4[facility] JrzikopFIBHCVVGKQ8593-85-95 10:48:000.1[facility] GgbacdoOCWKWVWQJN9300-62-95 10:48:002.6[facility] [place] BQBQPXLYGJ4044-58-65 10:48:000.5[facility] AbjsqlqNLBXTDOKYV1503-45-89 10:48:000.5 [facility] YowqkdpYDKBYFEAUN4973-94-05 10:48:001.1[facility] 2014-05-27 10:48:004.7[facility] IpojtwzKCICFRMQQN2790-29-11 10:48:0033.2[facility] MlzlobbPBZCWHGQOF3941-01-71 10:48:006.2[facility] OwhjmklELAIJCURMF6693-47-79 10:48:0059.0[facility] OkzzjqjYLWDBUNFIU1706-96-09 10:48:008.7[facility] GRRZVZYXDX0300-47-87 10:48:26536Rnujaksl HpltlegDFOHTUWBNC0311-03-39 10:48:00 14.7[facility] XenadgpCSREMBBGSE9859-03-17 10:48:0033.4[facility] 2014-05-27 10:48:0011.7[facility] UmgfglhLHVSRUQIBD4986-31-58 10:48:008.0[facility] AcpjcrrSWUTATCBED7794-77-44 10:48:00* Test Item Value Reference Range Interpretation Comments MCH (test code = MCH) 30.0 pg 27.0-31.0 [facility] RjiwtxdNZGZBZXQTA7191-36-80 10:48:0034.9[facility] 2014-05-27 10:48:0089.7[facility] PdlfmpzVTLAYOCWCE7060-55-97 10:48:003.89[facility] HlzdfyyVUZJARSRDG4476-90-68 10:48:00Non Reactive *NA*(05/27/14 4:48 AM)[facility] HgtbvkmMDLNPIJNNM6660-71-38 10:48:00Negative *NA*(05/27/14 4:48 AM)[facility] AUOSPYY5240[facility]21-41 06:15:00Negative (05/27/14 12:15 AM)[facility]
--- OUTSIDE RECORDS SUMMARY | 2019-11-19 21:07 | XMS REPORT ---
Author Author Eleonora Willis Organization eClinicalWorks Address Unknown Phone Unavailable Care Team Providers Care Store Stocker Name Role Phone Kemi Willis CP Unavailable [...]
--- OUTSIDE RECORDS SUMMARY | 2019-11-19 21:07 | XMS REPORT ---
Author Author Eleonora Willis Organization eClinicalWorks Address Unknown Phone Unavailable Care Team Providers Care Customs Compliance Specialist Name Role Phone Kemi Willis CP Unavailable [...]
--- OUTSIDE RECORDS SUMMARY | 2019-11-19 21:07 | XMS REPORT | Summary of Care ---
Author Author [facility] - Health Organization [facility] - Health Address Unknown Phone Unavailable Care Team Providers Care Studio Producer Name Role Phone Pcp, Patient Does Not Have A PCP [phone] Reason for Visit * Reason Comments LAB WORK Encounter Details Care Team Description Date Type Department Alice Mcmahon MD [address] [place] [phone] Vtc-Lab Routine adult health maintenance 08/31/2019 Cash Register Mechanic LAB SERVICES AT [facility] B [facility] [address] [place] [phone] Allergies No Known Allergiesdocumented as of this encounter (statuses as of 08/31/2019) Medications End Date Status Medication Sig Dispensed [...] tabletIndications: by mouth 0 Essential hypertension daily. documented as of this encounter (statuses as of 08/31/2019) Active Problems No known active problemsdocumented as of this encounter (statuses as of 08/31/2019) Immunizations Name Administration Dates Next Due Influenza [...] Travel Start No recent travel history available. documented as of this encounter Last Filed Vital Signs Not on filedocumented in this encounter Plan of Treatment Care Team Description Date Type Specialty Alice Mcmahon MD [address] [phone] 03/03/2020 Office Visit Family Medicine Health Maintenance Due Date Last Done Comments Breast Cancer Screening 08/25/2014 08/25/2013 (MAMMOGRAM) PAP SMEAR 08/25/2021 08/25/2018 DTaP,Tdap,and Td Vaccines 06/28/2024 06/28/2014 (2 - Td) INFLUENZA VACCINE Completed 02/26/2019, 019 PNEUMOCOCCAL 0-64 YEARS Aged Out No longer elig ible based COMBINED SERIES on patient's age to complete this topic documented as of this encounter Results Not on filedocumented in this encounter Visit Diagnoses Diagnosis Routine adult health maintenance Routine general medical examination at a health care facility documented in this encounter Insurance Type Payer Benefit Subscriber ID Effective Phone Address Plan / Dates Group [facility] [id number] 2018-P [phone] [address] resent [id number] [employer] [facility] [id number] documented as of this encounter
--- OUTSIDE RECORDS SUMMARY | 2019-11-19 21:07 | XMS REPORT ---
Author Author Eleonora Willis Organization eClinicalWorks Address Unknown Phone Unavailable Care Team Providers Care Lifter Driver Name Role Phone Kemi Willis CP Unavailable [...]
--- OUTSIDE RECORDS SUMMARY | 2019-11-19 21:07 | XMS REPORT | Summary of Care ---
Author Author [facility] - Health Organization [facility] - [facility] Address Unknown Phone Unavailable Care Team Providers Care Flitch Hanger Name Role Phone Pcp, Patient Does Not Have A PCP [phone] Reason for Visit * Reason Comments WHEEZING Encounter Details Care Team Description Date Type Department Eladia Vargas RN [address] [place] [id number] [facility] 10/12/2019 Nurse Triage [facility] [address] [place] [phone] Allergies No Known Allergiesdocumented as of this [...] Description Date Type Specialty Alice Mcmahon MD [address] [phone] 03/03/2020 Office Visit Family Medicine [...] Results Not on filedocumented in this encounter Insurance Type Payer Benefit Subscriber ID Effective Phone Address Plan / Dates [id number] 2018-P [phone] [address] resent [id number] [facility] [id number] documented as of this encounter
--- OUTSIDE RECORDS SUMMARY | 2019-11-19 21:07 | XMS REPORT ---
Author Author Eleonora Willis Organization eClinicalWorks Address Unknown Phone Unavailable Care Team Providers Care Asl Interpreter Name Role Phone Kemi Willis CP Unavailable Allergies No Known Allergies Problems Problem Type Condition Code Onset Dates Condition Statu s Assessment Elevated blood sugar level R73.9 A ctive Assessment Helicobacter pylori (H. pylori) A04.8 Active Problem Rheumatoid arthritis M06.9 Active Problem Hypertension I10 Active Problem BMI 45.0-49.9, adult Z68.42 Active Assessment Positive PPD R76.11 Active Problem Depression F32.9 Active Problem Left knee pain M25.562 Active Medications Medication Code System Code Instructions Start Date End Date Status Dosage Omeclamox-Jeff [facility] 7520788860 20/500/500 by mouth daily Apr 21, 2019 Active as directed on pack Results No Known Results Summary Purpose eClinicalWorks Submission
--- OUTSIDE RECORDS SUMMARY | 2019-11-19 21:07 | XMS REPORT | Summary of Care ---
Author Author [facility] - Health Organization [facility] - Health Address Unknown Phone Unavailable Care Team Providers Care Animal Technician Name Role Phone Pcp, Patient Does Not Have A PCP [phone] Reason for Visit * Reason Comments WHEEZING Encounter Details Care Team Description Date Type Department Eladia Vargas RN [address] [place] [address] [facility] 10/12/2019 Nurse Triage [facility] [address] [place] [phone] Allergies No Known Allergiesdocumented as of this [...] Description Date Type Specialty Alice Mcmahon MD [address] [phone] 03/03/2020 Office Visit Family Medicine [...] Phone Address Plan / Dates [facility] [id number] 2018-P [phone] [address] resent [id number] [facility] [id number] documented as of this encounter
--- OUTSIDE RECORDS SUMMARY | 2019-11-19 21:07 | XMS REPORT ---
Author Author Eleonora Willis Organization eClinicalWorks Address Unknown Phone Unavailable Care Team Providers Care Radio Repairer Name Role Phone Kemi Willis CP Unavailable Allergies, Adverse Reactions, Alerts Substance [...] Instructions Start Date End Date Status Dosage Folic Acid [facility] 53051028591 1 MG Orally Once a day Jul 03, 2018 Active 1 tablet Wellbutrin XL ND 48744471483 150 MG Orally Once a day Jul 03, 2018 Active 1 tablet in the morning Isoniazid ND 57056601488 300 MG Orally Once a day September 23, 2018 Active 1 tablet Methotrexate ND 52169943541 2.5 MG Orally 10 pills a week Jun 162018 Active as directed Lisinopril ND 31228817416 10 mg Orally Once a day Jul 03, 2018 Active 1 tablet Pyridoxine HCl ND 84664177991 50 mg Orally Once a day September 142018September 18, 2019 Active [address] [facility] 66046250313 40 MG/0.8ML Subcutaneous Jul 03, 2018 Active 0.8 ml Vital Signs Date/Time: September 23, 2018 BMI 48.83 Index Weight 267 lbs Height 62 in Cardiac Monitoring Heart Rate 80 /min Blood Pressure Diastolic 64 mm Hg Blood Pressure Systolic 122 mm Hg Results No Known Results Summary Purpose eClinicalWorks Submission
--- OUTSIDE RECORDS SUMMARY | 2019-11-19 21:07 | XMS REPORT ---
Author Author Eleonora Olguin Organization eClinicalWorks Address Unknown Phone Unavailable Care Team Providers Care Wire Bender Hand Name Role Phone OlguinMarianne CP Unavailable Allergies, Adverse Reactions, Alerts Substance Reaction Event Type N.K.D.A. Info Not Available Non Drug Allergy Problems Problem Type Condition Code Onset Dates Condition Statu s Assessment Nausea R11.0 Active Assessment Vertigo R42 Active Assessment Acute URI J06.9 Active Problem Rheumatoid arthritis M06.9 Active Problem Hypertension I10 Active Problem BMI 45.0-49.9, adult Z68.42 Active Assessment Chills R68.83 Active Problem Depression F32.9 Active Problem Left knee pain M25.562 Active Medications Medication Code System Code Instructions Start Date End Date Status Dosage Isoniazid ND 45791369374 300 MG Orally Once a day September 23, 2018 Active 1 tablet Ondansetron ND 48422691393 4 mg Orally every 4 hrs October 30, 2018 Active 1 tablet on the tongue and allow to dissolve as needed Bromfed DM [facility] 85222430697 30-2-10 MG/5ML Orally every 4 hrs M ay 2018November 02, 2018 Active 10 ml as needed Pyridoxine HCl ND 29875336588 50 mg Orally Once a day September 142018September 18, 2019 Active 1 tablet Meclizine HCl ND 83976978178 25 MG Orally Once a day October 29, 2018 Active 1 tablet as needed Lisinopril ND 14018935913 10 mg Orally Once a day Jul 03, 2018 Active 1 tablet Wellbutrin XL ND 06834821800 150 MG Orally Once a day Jul 03, 2018 Active 1 tablet in the morning Vital Signs Date/Time: October 29, 2018 BMI 48.83 Index Weight 267 lbs Height 62 in Temperature 98.1 F Cardiac Monitoring Heart Rate 98 /min Blood Pressure Diastolic 78 mm Hg Blood Pressure Systolic 124 mm Hg Results Name Result Date Reference Range Unit Abnormali ty Flag CBC ----Platelets 286 [id number] ----NEUTROPHILS MID-0.4,GRA-0.9L 20181102 ----MCHC 33.3 20181102 ----MCH 31.7 20181102 ----MCV 94.9 20181102 ----Lymphs (Absolute) 51.6H 20181102 ----WBC 2.8L 20181102 ----Neutrophils (Absolute) MID-15.8H,GRA-32.6L 20181102 ----RBC 5.15 20181102 ----Hemoglobin 16.3 20181102 ----RDW 12.5 20181102 ----Hematocrit 48.9 20181102 RAPID FLU ----Result NEGATIVE [id number] Summary Purpose eClinicalWorks Submission
--- OUTSIDE RECORDS SUMMARY | 2019-11-19 21:07 | XMS REPORT ---
Author Author Eleonora Willis Organization eClinicalWorks Address Unknown Phone Unavailable Care Team Providers Care Harvest Worker Name Role Phone Kemi Willis CP Unavailable [...] Start Date End Date Status Dosage Isoniazid [facility] 58838766497 300 MG Orally Once a day September 23, 2018 Active 1 tablet Results No Known Results Summary Purpose eClinicalWorks Submission
--- OUTSIDE RECORDS SUMMARY | 2019-11-19 21:07 | XMS REPORT ---
Author Author Eleonora Willis Organization eClinicalWorks Address Unknown Phone Unavailable Care Team Providers Care Telegraph Mechanic Name Role Phone Kemi Willis CP Unavailable Allergies No Known Allergies Problems Problem Type Condition Code Onset Dates Condition Statu s Assessment Elevated blood sugar level R73.9 A ctive Problem Rheumatoid arthritis M06.9 Active Problem Hypertension I10 Active Problem BMI 45.0-49.9, adult Z68.42 Active Assessment Positive PPD R76.11 Active Problem Depression F32.9 Active Problem Left knee pain M25.562 Active Medications Medication Code System Code Instructions Start Date End Date Status Dosage Isoniazid [facility] 21648651870 300 MG Orally Once a day September 23, 2018 Active 1 tablet Results No Known Results Summary Purpose eClinicalWorks Submission
--- OUTSIDE RECORDS SUMMARY | 2019-11-19 21:07 | XMS REPORT | Summary of Care ---
Author Author [facility] - Health Organization [facility] - Health Address Unknown Phone Unavailable Care Team Providers Care Management Coordinator Name Role Phone Pcp, Patient Does Not Have A PCP [phone] Reason for Visit * Reason Comments LAB WORK Encounter Details Care Team Description Date Type Department Alice Mcmahon MD [address] [place] [phone] Vtc-Lab Routine adult health maintenance 08/31/2019 Machine Set Up Operator [facility] SERVICES AT [facility] B [facility] [address] [place] [phone] Allergies No Known Allergiesdocumented as of [...] Description Date Type Specialty Alice Mcmahon MD [address] [phone] 03/03/2020 Office Visit Family Medicine [...] Effective Phone Address Plan / Dates Group [facility] [id number] 2018-P [phone] [address] resent [id number] [employer]ANT[employer] [facility] [id number] documented as of this encounter
--- OUTSIDE RECORDS SUMMARY | 2019-11-19 21:07 | XMS REPORT ---
Author Author Eleonora Willis Organization eClinicalWorks Address Unknown Phone Unavailable Care Team Providers Care Rippler Name Role Phone Kemi Willis CP Unavailable Allergies No Known Allergies Problems Problem Type Condition Code Onset Dates Condition Statu s Problem Rheumatoid arthritis M06.9 Active Problem Hypertension I10 Active Problem BMI 45.0-49.9, adult Z68.42 Active Problem Depression F32.9 Active Problem Left knee pain M25.562 Active Medications Medication Code System Code Instructions Start Date End Date Status Dosage Omeclamox-Jeff [facility] 5157226952 20/500/500 by mouth daily Apr 21, 2019 Inactive as directed on pack Amoxicillin ND 73082017796 500 mg Orally Twice a day Apr 26May 10, 2019 Active 2 tablets Omeprazole ND 99954113206 20 mg Orally twice a day (bid) Apr 26 Active 1 tablet Clarithromycin ND 62802497439 500 mg Orally twice a day (bid) Apr 26, 2019 May 10, 2019 Active 1 tablet Results No Known Results Summary Purpose eClinicalWorks Submission
--- OUTSIDE RECORDS SUMMARY | 2019-11-19 21:07 | XMS REPORT ---
Author Author Eleonora Willis Organization eClinicalWorks Address Unknown Phone Unavailable Care Team Providers Care Roguer Name Role Phone Kemi Willis CP Unavailable [...]
--- OUTSIDE RECORDS SUMMARY | 2019-11-19 21:07 | XMS REPORT ---
Author Author Eleonora Willis Organization eClinicalWorks Address Unknown Phone Unavailable Care Team Providers Care Registered Nurse Maternal Child Name Role Phone Kemi Willis CP Unavailable [...]
--- OUTSIDE RECORDS SUMMARY | 2019-11-19 21:07 | XMS REPORT ---
Author Author Eleonora Willis Organization eClinicalWorks Address Unknown Phone Unavailable Care Team Providers Care Clinical Microbiologist Name Role Phone Kemi Willis CP Unavailable [...] Start Date End Date Status Dosage Isoniazid [facility] 39792317186 300 MG Orally Once a day September 23, 2018 Active 1 tablet Results No Known Results Summary Purpose eClinicalWorks Submission
--- OUTSIDE RECORDS SUMMARY | 2019-11-19 21:07 | XMS REPORT | Summary of Care ---
Author Author [facility] - Health Organization [facility] - Health Address Unknown Phone Unavailable Care Team Providers Care Relief Charge Nurse Name Role Phone Pcp, Patient Does Not Have A PCP [phone] Reason for Visit * Reason Comments Well Woman Exam Encounter Details Care Team Description Date Type Department Alice Mcmahon MD [address] [phone] Routine adult health maintenance (Primar y Dx); Encounter for annual routine gynecological examination; Essential hypertension; Dyspepsia; Anxiety and depression 08/31/2019 [facility] [address] [phone] Allergies No Known Allergiesdocumented as of this [...] tabletIndications: by mouth 0 Essential hypertension daily. 08/31/2019 Discontinued (Reorder) lisinopril 10 mg tablet Take 10 mg by 0 mouth daily. 08/31/2019 Discontinued (Reorder) DULoxetine (CYMBALTA) 30 Take 30 mg by 0 mg capsule mouth 2 (two) times daily. 08/31/2019 Discontinued (Reorder) lansoprazole 30 mg Take 30 mg by 0 capsule mouth daily. documented as of this encounter (statuses [...] of this encounter Last Filed Vital Signs Reading Time Taken Comments Vital Sign 124/78 08/31/2019 11:00 AM CDT Blood Pressure 70 08/31/2019 11:00 AM CDT Pulse 36.8 C (98.3 F) 08/31/2019 11:00 AM CDT Temperature 18 08/31/2019 11:00 AM CDT Respiratory Rate 98% 08/31/2019 11:00 AM CDT Oxygen Saturation - - Inhaled Oxygen Concentration 122.2 kg (269 lb 8 oz) 08/31/2019 11:00 AM CDT Weight 157.5 cm (5' 2") 08/31/2019 11:00 AM CDT Height 49.29 08/31/2019 11:00 AM CDT Body Mass Index documented in this encounter Progress Notes * Alice Mcmahon MD - 08/31/2019 10:40 AM CDT Cc: Chief Complaint Patient presents with Well Woman Exam Eleonora Anderson is a 44 year old female who presents for a well woman exam. Br east exam was not performed because MMG was ordered 2 months ago. Pt has no c oncerns at the time of visit. She denies past abnormal pap smear. Pt has PMHx HTN, diverticulitis and anxiety/depression. She reports no adverse e ffects with her current medications and requests refills. She has PMHx RA and se es Dr. Garcia, rheumatology for management. Medications Outpatient Medications Prior to Visit Medication Sig Dispense Refill acetaminophen with codeine (TYLENOL-CODEINE #3 ORAL) Take by mouth. acetaminophen with codeine (TYLENOL-CODEINE #4 ORAL) Take by mouth. dicyclomine 20 mg tablet Take 20 mg by mouth 4 (four) times daily. DULoxetine (CYMBALTA) 30 mg capsule Take 30 mg by mouth 2 (two) times daily. lansoprazole 30 mg capsule Take 30 mg by mouth daily. lisinopril 10 mg tablet Take 10 mg by mouth daily. sarilumab (KEVZARA SC) inject under the skin. No facility-administered medications prior to visit. Current Outpatient Medications: acetaminophen with codeine (TYLENOL-CODEINE #3 ORAL), Take by mouth., Disp : , Rfl: acetaminophen with codeine (TYLENOL-CODEINE #4 ORAL), Take by mouth., Disp : , Rfl: dicyclomine 20 mg tablet, Take 20 mg by mouth 4 (four) times daily., Disp: , Rfl: DULoxetine (CYMBALTA) 30 mg capsule, Take 30 mg by mouth 2 (two) times dong y., Disp: , Rfl: lansoprazole 30 mg capsule, Take 30 mg by mouth daily., Disp: , Rfl: lisinopril 10 mg tablet, Take 10 mg by mouth daily., Disp: , Rfl: sarilumab (KEVZARA SC), inject under the skin., Disp: , Rfl: Review of Systems Constitutional: Negative. HENT: Negative. Respiratory: Negative. Cardiovascular: Negative. Genitourinary: Negative. Skin: Negative. Neurological: Negative. Vital Signs BP 124/78 (BP Location: Right arm, Patient Position: Sitting, BP CUFF SIZE: Adul t Large) | Pulse 70 | Temp 36.8 C (98.3 F) (Oral) | Resp 18 | Ht 5' 2" ( 1.575 m) | Wt 269 lb 8 oz (122.2 kg) | LMP 08/24/2019 | SpO2 98% | BMI 49.29 kg/m Physical Exam Constitutional: She is oriented to person, place, and time. She appears well-dev eloped and well-nourished. No distress. HENT: Head: Normocephalic. Right Ear: External ear normal. Left Ear: External ear normal. Mouth/Throat: Oropharynx is clear and moist. Eyes: Pupils are equal, round, and reactive to light. Conjunctivae are normal. Neck: Normal range of motion. Cardiovascular: Normal rate, regular rhythm and normal heart sounds. No murmur heard. Pulmonary/Chest: Effort normal and breath sounds normal. No respiratory distress . Abdominal: There is tenderness (on palpation) in the suprapubic area. Genitourinary: Vagina normal and uterus normal. No vaginal discharge found. Musculoskeletal: Normal range of motion. Lymphadenopathy: She has no cervical adenopathy. Neurological: She is alert and oriented to person, place, and time. Nursing note and vitals reviewed. Assessment/Plan 1. Routine adult health maintenance Repeat labs, will f/u results and manage accordingly. - CBC WITH DIFFERENTIAL - COMP. METABOLIC PANEL (86980) - GLYCOSYLATED HEMOGLOBIN (A1C) - LIPID PANEL (55190)(TOTAL CHOLESTEROL, TRIGLYCERIDES, HDL) - URINALYSIS - THYROID STIMULATING HORMONE 2. Encounter for annual routine gynecological examination Will f/u lab results and manage accordingly. Patient has had breast exam with JADEN Richter she has orders for mammogram but has not done the mammogram. - PAP Smear-Liquid Based - HIGH RISK HPV-THIN PREP 3. Essential hypertension Blood pressure controlled at time of visit. Continue on medication as instructed , will f/u and manage accordingly. - lisinopril 10 mg tablet; Take 1 tablet by mouth daily. Dispense: 90 tablet; R efill: 1 4. Dyspepsia Continue on medication as instructed, will f/u and manage accordingly. - lansoprazole 30 mg capsule; Take 1 capsule by mouth daily. Dispense: 90 capsu le; Refill: 1 5. Anxiety and depression Continue on medication as instructed, will f/u and manage accordingly. - DULoxetine (CYMBALTA) 30 mg capsule; Take 1 capsule by mouth 2 (two) times kashmir ly. Dispense: 180 capsule; Refill: 1 This visit did not involve counseling and coordination that comprised more than 50% of the visit time. Shamar Evans , am scribing for, and in the presence of, Alice Mcmahon MD who performed the services described here-in. Shamar Munguia, August 31, 2019, 8:40 AM I, Alice Mcmahon MD, personally performed the services described in this docu mentation , as scribed by, Shamar Munguia in my presence and it is both accurat e and complete. Alice Mcmahon MD August 31, 2019, 12:16 PM documented in this encounter Plan of Treatment Care Team Description Date Type Specialty Alice Mcmahon MD [address] [phone] 03/03/2020 Office Visit Family Medicine Date/Time Name Type Priority Associated Diag noses 08/31/2019 11:56 AM CDT CBC WITH DIFFERENTIAL LAB Routine Routine adult health maintenance 08/31/2019 11:56 AM CDT COMP. METABOLIC PANEL LAB Routine Routine adult health (24702) maintenance 08/31/2019 11:56 AM CDT GLYCOSYLATED HEMOGLOBIN LAB Routine Routin e adult health (A1C) maintenance 08/31/2019 11:56 AM CDT LIPID PANEL (94135)(TOTAL LAB Routine Rout ine adult health CHOLESTEROL, maintenance TRIGLYCERIDES, HDL) 08/31/2019 11:56 AM CDT URINALYSIS LAB Routine Routine adult h ealth maintenance 08/31/2019 11:56 AM CDT THYROID STIMULATING LAB Routine Routine ad ult health HORMONE maintenance Order Schedule Name Type Priority Associated Diag noses Ordered: 08/31/2019 PAP Smear-Liquid Based LAB Routine Encount er for annual routine gynecological examination Ordered: 08/31/2019 HIGH RISK HPV-THIN PREP LAB Routine Encoun ter for annual routine gynecological examination Health Maintenance Due Date Last Done Comments [...] Visit Diagnoses Diagnosis Routine adult health maintenance - Prim iam Routine general medical examination at a health care facility Encounter for annual routine gynecologi abdelrahman examination Essential hypertension Unspecified essential hypertension Dyspepsia Dyspepsia and other specified disorders of function of stomach Anxiety and depression Dysthymic disorder documented in this encounter Insurance Type Payer Benefit Subscriber ID Effective Phone Address Plan / Dates Group [facility] [id number] 2018-P [phone] [address] [id number] [facility] [id number] documented as of this encounter
--- OUTSIDE RECORDS SUMMARY | 2019-11-19 21:07 | XMS REPORT | Summary of Care ---
Author Author [facility] - Health Organization [facility] - Health Address Unknown Phone Unavailable Care Team Providers Care Ophthalmic Photographer Name Role Phone Pcp, Patient Does Not Have A PCP [phone] Reason for Visit * Reason Comments Well Woman Exam Encounter Details Care Team Description Date Type Department Alice Mcmahon MD [address] [phone] Routine adult health maintenance (Primar y Dx); Encounter for annual routine gynecological examination; Essential hypertension; Dyspepsia; Anxiety and depression 08/31/2019 [facility] [address] [phone] Allergies No Known Allergiesdocumented as of this [...] CBC WITH DIFFERENTIAL - COMP. METABOLIC PANEL (36178) - GLYCOSYLATED HEMOGLOBIN (A1C) - LIPID PANEL (60030)(TOTAL CHOLESTEROL, TRIGLYCERIDES, HDL) - URINALYSIS - THYROID [...] Date Type Specialty Alice Mcmahon MD [address] [phone] 03/03/2020 Office Visit Family Medicine Date/Time Name Type Priority Associated Diag noses 08/31/2019 11:56 AM CDT CBC WITH DIFFERENTIAL LAB Routine Routine adult health maintenance 08/31/2019 11:56 AM CDT COMP. METABOLIC PANEL LAB Routine Routine adult health (83801) maintenance 08/31/2019 11:56 AM CDT GLYCOSYLATED HEMOGLOBIN LAB Routine Routin e adult health (A1C) maintenance 08/31/2019 11:56 AM CDT LIPID PANEL (44722)(TOTAL LAB Routine Rout ine adult health CHOLESTEROL, [...] Effective Phone Address Plan / Dates Group [facility] [id number] 2018-P [phone] [address] resent [id number] [facility] [id number] documented as of this encounter
--- OUTSIDE RECORDS SUMMARY | 2019-11-19 21:08 | XMS REPORT | Summary of Care ---
Author Author [facility] - Health Organization [facility] - Health Address Unknown Phone Unavailable Care Team Providers Care Manager Sourcing Name Role Phone Alice Mcmahon MD PCP Encounter Details Care Team Description Date Type Department Alice Mcmahon MD 2660 [facility] [address] [place] [phone] 11/19/2019 Patient Secure [facility] [facility] 2660 [facility], [place] [phone] Allergies No Known Allergiesdocumented as of this encounter (statuses as of 11/19/2019) Medications End Date Status Medication Sig Dispensed [...] tabletIndications: by mouth 0 Essential hypertension daily. Active codeine-guaifenesin Take 5 mL by 240 mL 0 10/11 (CHERATUSSIN AC) 10-100 mouth every 6 0 mg/5 mL (six) hours solutionIndications: as needed for Bronchitis Cough. Active albuterol 90 Inhale 2 8.5 g 1 mcg/actuation Puffs every 6 0 inhalerIndications: (six) hours Bronchitis as needed for Wheezing or Shortness of Breath. documented as of this encounter (statuses as of 11/19/2019) Active Problems No known active problemsdocumented as of this encounter (statuses as of 11/19/2019) Immunizations Name Administration Dates Next Due Influenza [...] Date Type Specialty Alice Mcmahon MD [address] [phone] 03/03/2020 Office Visit Family Medicine Health Maintenance Due Date Last Done Comments Depression Screening 1986 Breast Cancer Screening 08/25/2014 08/25/2013 (MAMMOGRAM) PAP [...] Phone Address Plan / Dates Group O [facility] BC [id number] 2018-P [phone] [address] resent [id number] [facility] [id number] documented as of this encounter
--- OUTSIDE RECORDS SUMMARY | 2019-11-19 21:08 | XMS REPORT | Summary of Care ---
Author Author [facility] - Health Organization [facility] - Health Address Unknown Phone Unavailable Care Team Providers Care Pulp Piler Name Role Phone Alice Mcmahon MD PCP Reason for Visit * Reason Comments Assessment Cough Encounter Details Care Team Description Date Type Department Alice Mcmahon MD [address] [phone] Assessment; Cough 10/19/2019 Telephone [facility] [address] [phone] Allergies No Known Allergiesdocumented as of this encounter (statuses as of 10/19/2019) Medications End Date Status Medication Sig Dispensed [...] as of this encounter (statuses as of 10/19/2019) Active Problems No known active problemsdocumented as of this encounter (statuses as of 10/19/2019) Immunizations Name Administration Dates Next Due Influenza [...] Treatment Care Team Description Date Type Specialty Provider, [facility] M[facility] Assessment 10/19/2019 Urgent Care Family Medicine Alice Mcmahon MD [address] [phone] 03/03/2020 Office Visit Family Medicine Health Maintenance [...] Effective Phone Address Plan / Dates Group HMO BCBS [facility] [id number] 2018-P [phone] [address] resent [id number] [facility] [id number] documented as of this encounter
--- OUTSIDE RECORDS SUMMARY | 2019-11-19 21:08 | XMS REPORT | Summary of Care ---
Author Author [facility] - Health Organization [facility] - Health Address Unknown Phone Unavailable Care Team Providers Care Rubber Press Operator Name Role Phone Alice Mcmahon MD PCP Reason for Visit * Reason Comments Results COVID-19 Encounter Details Care Team Description Date Type Department Sarah Valera MD [address] [address] Results (COVID-19) 10/21/2019 Telephone [facility] [address] [place] [phone] Allergies No Known Allergiesdocumented as of this encounter (statuses as of 10/21/2019) Medications End Date Status Medication Sig Dispensed [...] needed for Wheezing or Shortness of Breath. 10/24/2019 Active predniSONE 20 mg Take 2 10 tablet 0 tabletIndications: tablets by 0 Bronchitis mouth daily for 5 days. documented as of this encounter (statuses as of 10/21/2019) Active Problems No known active problemsdocumented as of this encounter (statuses as of 10/21/2019) Immunizations Name Administration Dates Next Due Influenza [...] history available. Date Recorded COVID-19 Exposure Response 10/19/2019 3:00 PM CDT In the last month, have you been in contact with No / Unsure someone who was confirmed or suspected to have Coronavirus / COVID-19? documented as of this encounter Last Filed Vital Signs Not on filedocumented in this encounter Plan of Treatment Care Team Description Date Type Specialty Alice Mcmahon MD [address] [phone] 03/03/2020 Office Visit Family Medicine Health Maintenance Due Date Last Done Comments Breast Cancer Screening 08/25/2014 08/25/2013 (MAMMOGRAM) PAP SMEAR 08/30/2022 08/31/2019, 019 DTaP,Tdap,and Td Vaccines 06/28/2024 06/28/2014 (2 - Td) INFLUENZA VACCINE Completed 02/26/2019, 09/01/2 019 PNEUMOCOCCAL 0-64 YEARS Aged Out No longer elig ible based COMBINED SERIES on patient's age to complete this topic documented as of this encounter Results Not on filedocumented in this encounter Insurance Type Payer Benefit Subscriber ID Effective Phone Address Plan / Dates Group [facility] [id number] 2018-P [phone] [address] [id number] [facility] [id number] documented as of this encounter
--- OUTSIDE RECORDS SUMMARY | 2019-11-19 21:08 | XMS REPORT | Summary of Care ---
Author Author [facility] - Health Organization [facility] - Health Address Unknown Phone Unavailable Care Team Providers Care Pulverizing And Sifting Operator Name Role Phone Alice Mcmahon MD PCP Encounter Details Care Team Description Date Type Department Sarah Valera MD [address] [phone] Arrived 10/19/2019 [facility] Encounter Emergency - Radiology [address] [place] [phone] Allergies No Known Allergiesdocumented as of this encounter (statuses as of 10/20/2019) Medications End Date Status Medication Sig Dispensed [...] mg Take 1 tablet 10 tablet 0 /2 tabletIndications: by mouth 0 Bronchitis, Acute sore [...] as of this encounter (statuses as of 10/20/2019) Active Problems No known active problemsdocumented as of this encounter (statuses as of 10/20/2019) Immunizations Name Administration Dates Next Due Influenza [...] Description Date Type Specialty Alice Mcmahon MD [address] [phone] 03/03/2020 Office Visit Family Medicine Health Maintenance Due Date Last Done Comments Breast Cancer Screening 08/25/2014 08/25/2013 (MAMMOGRAM) PAP SMEAR 08/30/2022 08/31/2019, 019 DTaP,Tdap,and Td Vaccines 06/28/2024 06/28/2014 (2 - Td) INFLUENZA VACCINE Completed 02/26/2019, 019 PNEUMOCOCCAL 0-64 YEARS Aged Out No longer elig ible based COMBINED SERIES on patient's age to complete this topic documented as of this encounter Procedures Comments Procedure Name Priority Date/Time Associated Diag nosis XR CHEST 2 VW STAT 10/19/2019 Contact with or exposure 3:34 PM CDT to viral disease Bronchitis documented in this encounter Results * XR CHEST 2 VW (10/19/2019 3:34 PM CDT) Specimen Impressions Performed At No consolidative process, pneumothorax or pleural eff usion. PACS/VR/DOSE Preliminary Report Dictated by Resident : Odin Rosales MD., have reviewed this study and agree with the above report. Narrative Performed At XR CHEST 2 VW PACS/VR/DOSE Comparison: None available History: persistent cough, wheezing, on immunosuppressants Findings: The lungs are mildly under aerated. Mil d prominence of the bilateral pulmonary fercho likely related to poor i nspiration. No pleural effusion, focal consolidation, or pneumothorax is identified. The cardiomediastinal silhouette is nor mal in size. No acute osseous abnormality is present . Procedure Note [facility], Radiant Results Inft User - 10/19/2019 4:36 PM CDT XR CHEST 2 VW Comparison: None available History: persistent cough, wheezing, on immunosuppressants Findings: The lungs are mildly under aerated. Mild prominence of the bilateral pulmonary fercho likely related to poor inspiration. No pleural effusion, focal consolidation, or pneumothorax is identified. The cardiomediastinal silhouette is normal in size. No acute osseous abnormality is present. IMPRESSION No consolidative process, pneumothorax or pleural effusion. Preliminary Report Dictated by Resident: Odin Rosales MD., have reviewed this study and agree with the above report. Performing Organization Address City/State/Zipcode Ph one Number PACS/VR/DOSE documented in this encounter Visit Diagnoses Diagnosis Contact with or exposure to viral disea se Contact with or exposure to other viral diseases Bronchitis Bronchitis, not specified as acute or c hronic documented in this encounter Insurance Type Payer Benefit Subscriber ID Effective Phone Address Plan / Dates Group [facility] [id number] 2018-P [phone] [id number] [facility] [id number] documented as of this encounter
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
[2019-11-19] MEDS ORDERED: LORAZEPAM INJ 2 MG/ML VIAL IV NR (21:30)
[2019-11-19 21:46] LABS: BASOPHILS % 0.4 % (0.0-1.0); HEMATOCRIT 47.1 % (34.2-44.1); HEMOGLOBIN 16.6 g/dL (12.0-16.0); LYMPHOCYTES # (AUTO) 0.6 (1.0-3.2); LYMPHOCYTES % 11.9 % (18.0-39.1); MEAN CORPUSCULAR HEMOGLOBIN 31.1 pg (28-32); MEAN CORPUSCULAR HGB CONC 35.2 g/dL (31-35); MEAN CORPUSCULAR VOLUME 88.4 fL (81-99); MONOCYTES % 0.6 % (4.4-11.3); NEUTROPHILS # (AUTO) 4.5 (2.1-6.9); NEUTROPHILS % 86.7 % (38.7-80.0); PLATELET COUNT 300 x10e3/uL (140-360); RED BLOOD COUNT 5.33 x10e6/uL (3.6-5.1); RED CELL DISTRIBUTION WIDTH 12.2 % (11.7-14.4)
[2019-11-19 21:48] LABS: BILIRUBIN,URINE NEGATIVE (NEGATIVE); CLARITY,URINE CLEAR (CLEAR); COLOR,URINE YELLOW (YELLOW); KETONES,URINE 1+ (NEGATIVE); LEUKOCYTE ESTERASE ,URINE NEGATIVE (NEGATIVE); NITRITE,URINE NEGATIVE (NEGATIVE); PROTEIN,URINE DIPSTICK NEGATIVE (NEGATIVE); URINE UROBILINOGEN 0.2 mg/dL (0.2 - 1)
[2019-11-19 22:03] LABS: ALANINE AMINOTRANSFERASE 80 IU/L (0-55); ALBUMIN 4.2 g/dL (3.5-5.0); ALBUMIN/GLOBULIN RATIO 1.3 (0.8-2.0); ALKALINE PHOSPHATASE 65 IU/L (40-150); ANION GAP 15.1 mmol/L (8-16); BLOOD UREA NITROGEN 14 mg/dL (7-26); BUN/CREATININE RATIO 16 (6-25); CALCIUM 9.8 mg/dL (8.4-10.2); CARBON DIOXIDE 19 mmol/L (22-29); CHLORIDE 108 mmol/L (98-107); CREATINE KINASE 33 IU/L (29-168); CREATININE, SERUM 0.85 mg/dL (0.57-1.11); EST GLOMERULAR FILTRATION RATE > 60 ML/MIN (60-); GLUCOSE 206 mg/dL (74-118); POTASSIUM 4.1 mmol/L (3.5-5.1); SODIUM 138 mmol/L (136-145)
[2019-11-19 22:03] LABS: BACTERIA,URINE FEW /HPF
[2019-11-19 22:04] LABS: EPITHELIAL CELLS,URINE MODERATE /LPF
--- NOTE | 2019-11-19 22:06 | Diagnostic Imaging Report ---
EXAMINATION: CHEST SINGLE (PORTABLE) COMPARISON: Chest x-ray 03/14/2014 INDICATION: ^NUMBNESS BOTH ARMS ^Y DISCUSSION: Frontal view of the chest obtained at 2146 hours. HEART AND MEDIASTINUM: The cardiomediastinal silhouette is unremarkable. LINES: None. LUNGS: The lungs are well inflated. Subtle focus of airspace opacity in the base of the right lung. Vascular markings are normal. No interstitial edema. PLEURA: No pleural effusion or pneumothorax. BONES AND SOFT TISSUES: No focal osseous lesion. The soft tissues are normal. IMPRESSION: Subtle focus of airspace opacity in the base of the right lung may represent atelectasis. Recommend correlation with PA and lateral chest x-ray if clinically feasible. Signed by: Dr. Sandeep Sauer MD on 11/19/2019 10:03 PM
--- NOTE | 2019-11-19 23:05 | Diagnostic Imaging Report ---
EXAMINATION: Head CT without contrast. HISTORY:Numbness in bilateral upper extremity. COMPARISON:None. TECHNIQUE: Multidetector axial images were obtained from the foramen magnum to the vertex without contrast. The images were reconstructed using brain and bone algorithms. Thin section brain images were reformatted into coronal and sagittal planes. Dose modulation, iterative reconstruction, and/or weight based adjustment of the mA/kV was utilized to reduce the radiation dose to as low as reasonably achievable. Intravenous contrast: None IMAGE QUALITY: Acceptable. FINDINGS: Skull/scalp: No lytic or blastic. lesions. No surgical changes. Parenchyma: Nonspecific few, scattered supratentorial white matter hypodensities. No acute hemorrhage, mass or acute major vascular territorial infarct. Arteries: No density suggestive of thrombosis. Dural sinuses: No abnormal density suggestive of thrombosis. Ventricles: No hydrocephalus or displacement. Extra-axial spaces: No abnormal density. Brain volume: Normal for age. Craniocervical junction: No mass, Chiari malformation, or basilar invagination. Sella: No mass. Paranasal/mastoid sinuses: Mild mucosal thickening in right posterior ethmoid and bilateral sphenoid sinuses. Air-fluid level in left sphenoid sinus with bubbly secretions. IMPRESSION: No acute intracranial abnormality, particularly no acute hemorrhage, mass or acute major vascular territorial infarct. Nonspecific mild supratentorial white matter microvascular disease, differential consideration includes small vessel ischemia, vasculitis or demyelinating process in appropriate clinical setting. Signed by: Dr. Miriam Meade M.D. on 11/19/2019 11:01 PM
== END 2019-11-20 00:06 | disposition home or self-care (01) ==
LOC: ER 21:03
DX: F41.9 Anxiety disorder, unspecified (principal); I10 Essential (primary) hypertension; M06.9 Rheumatoid arthritis, unspecified
CPT/HCPCS: 36415; 70450; 71045; 80053; 81001; 82550; 82553; 84484; 85025; 85379; 93005; 99284; J2060